=== PATIENT | female | born 1935 | race Caucasian/White ===

== ENCOUNTER 2016-10-01 07:25 | Day surgery (SDC) | payer MEDICARE ==
[~2016-10-01] VITALS: Ht 149.9 cm; Wt 72.2 kg
[~2016-10-01 07:25] MED LIST: ALBU2.5I INH; BUME0.5T PO; COLL30OI3 TOP; DOCU1CAP39 PO; GLIP5 PO; IPRA0.02 NEB; LACT20SO4 PO; LOPI600T PO; POTA20IN3 PO; PRED10 PO; PREG25 PO; PROT40TA PO; Z.0.OXYGENDME NC
[2016-10-01 07:59] VITALS: BP 150/74; PULSE 87; RESP 18; TEMP 97.9; O2SAT 97
[2016-10-01] MEDS ORDERED: SENN1TAB PO (08:07)
[2016-10-01] MEDS ORDERED: OXYB5TAB10 PO (08:07)
[2016-10-01] MEDS ORDERED: GEMF600T PO (08:07)
[2016-10-01] MEDS ORDERED: PANT40TA3 PO (08:07)
[2016-10-01] MEDS ORDERED: GABA300C5 PO (08:07)
[2016-10-01] MEDS ORDERED: NOVOLOGP2 SQ (08:07)
[2016-10-01] MEDS ORDERED: ASPI81CH37 CHEW (08:07)
[2016-10-01] MEDS ORDERED: XARE20TA PO (08:07)
[2016-10-01] MEDS ORDERED: FURO40TA PO (08:07)
[2016-10-01] MEDS ORDERED: K-TA10TA PO (08:07)
[2016-10-01] MEDS ORDERED: METO50TA PO (08:07)
[2016-10-01] MEDS ORDERED: SODIUM CHLORIDE 0.9% 1000 ML IV SCH (08:15)
[2016-10-01] MEDS ORDERED: ceFAZolin 2 GM PREMIX 50 ML - implanted port removal IV SCH (08:15)
[2016-10-01 08:28] LABS: AUTOMATED NEUTROPHIL # 2.4 TH/MM3 (1.8-7.7); BASOPHIL % 0.6 % (0.0-2.0); EOSINOPHIL # 0.2 TH/MM3 (0-0.4); HEMATOCRIT 32.6 % (35.0-46.0); HEMO FLAGS DIFF FINAL; LYMPHOCYTE # 2.4 TH/MM3 (1.0-4.8); MEAN CELL VOLUME 93.7 FL (80.0-100.0); MEAN CORPUSCULAR HEMOGLOBIN 31.1 PG (27.0-34.0); MEAN CORPUSCULAR HGB CONC 33.2 % (32.0-36.0); MONO % 8.7 % (0.0-8.0); NEUT % 43.7 % (16.0-70.0); PLATELET COUNT 146 TH/MM3 (150-450); RED BLOOD COUNT 3.48 MIL/MM3 (4.00-5.30); RED CELL DISTRIBUTION WIDTH 14.5 % (11.6-17.2); WHITE BLOOD COUNT 5.5 TH/MM3 (4.0-11.0)
[2016-10-01] MEDS ORDERED: VANCOMYCIN 1,000 MG/NS 250 ML IV STA ×2 (09:28)
[2016-10-01] MEDS ORDERED: LIDOCAINE 1%/EPINEPHrine 1:100,000 SOLN 20 ML VIAL ONE (09:52)
[2016-10-01 10:55] VITALS: BP 102/33; PULSE 57; RESP 18; TEMP 97.7; O2SAT 95
--- NOTE | 2016-10-01 11:04 | PD.RAD ---
Post Procedure Progress Note Pre Procedure Diagnosis: (1) Peritoneal carcinomatosis Post Procedure Diagnosis: (1) Peritoneal carcinomatosis Procedure Date: Oct 01, 2016 Supervising Radiologist: Ibrahima Mujica Proceduralist/Assist: RT Veronique(R), RT Chuck(R) Anesthesia: Local, Analgesia Plan of Activity Patient to Unit: ROPU Patient Condition: Good See PACS Report for procedural detail/treatment Central Venous Access Device Procedure 1 Left Internal Jugular Infusaport Removal single lumen Brazilian: 8 Findings: Tissue breakdown over port. Port removed Ibrahima Mujica MD Oct 01, 2016 11:04
[2016-10-01 11:10] VITALS: BP 116/39; PULSE 55; RESP 18; O2SAT 98
[2016-10-01 11:40] VITALS: BP 97/41; PULSE 44; RESP 18; O2SAT 94
[2016-10-01 12:10] VITALS: BP 102/47; PULSE 41; RESP 18; O2SAT 95
--- NOTE | 2016-10-01 12:46 | RADRPT ---
EXAM DATE/TIME: 10/01/2016 07:32 [facility] COMPARISON: [id number] REMOVAL, W/O FLUORO, LEFT, July 01, 2015, 0:00. INDICATIONS : Patient with history of breast cancer in need of Pijqa-w-Pktb removal due to infection. MEDICAL HISTORY : Omental and peritoneal masses, Ascites, Left breast cancer, CAD, Diabetes, GERD, HLD, HTN, Peripheral neuropathy, Chemotherapy SURGICAL HISTORY : Coronary artery bypass, Coronary stent, Pacemaker, Complete hysterectomy, Left mastectomy, Paracentes is ENCOUNTER: Subsequent ACUITY: 2 weeks PAIN SCORE: 0/10 SEDATION TIME: 30 minutes 1.) 50 mcg fentanyl (Sublimaze) IV 2.) Prophylactic antibiotics were administered with appropriate pre-procedure timing. Vancomycin within 2 hrs of procedure, Ancef (or alternative) within 1 hr of procedure. PROCEDURE : 1. Removal of Pqlthj-m-fkdc. 2. Conscious sedation with continuous EKG and oximetry monitoring. The risk, benefits and potential complications of Hlveve-o-Gclv removal were discussed. Written conse nt was obtained. The patient was placed supine. The chest wall was prepped in sterile fashion. Full sterile techniqu e was used, including cap, mask, sterile gloves and gown, and a large sterile sheet. Hand hygiene an d 2% chlorhexidine and/or Betadine/alcohol prep was utilized per protocol for cutaneous antisepsis. The skin and subcutaneous tissues were infiltrated with local anesthetic solution. A small incision w as made, the subcutaneous pocket was opened. The port was dissected from the subcutaneous tissues and easily removed in one piece. The pocket incision was closed with subcuticular Vicryl suture. Steri -Strips were applied. Conscious sedation was performed with the prescribed dosages and duration as above in the presence of an independent trained radiology nurse to assist in the monitoring of the patient. EKG and oximetry remained stable throughout the procedure. The patient tolerated the procedure well and there were no complications. The patient was sent to post anesthesia recovery in stable condition. CONCLUSION: Uncomplicated port removal as above. Ibrahima Mujica MD on October 01, 2016 at 12:44 Board Certified Radiologist. This report was verified electronically.
== END 2016-10-01 13:00 | disposition home or self-care (01) ==
LOC: HROP 07:25 → HRIP 07:26 → HROP 13:00
PROVIDERS: ATTEND Internal Medicine Hematology & Oncology
DX: Z45.2 Encounter for adjustment and management of vascular access device (principal); C78.6 Secondary malignant neoplasm of retroperitoneum and peritoneum; R18.8 Other ascites; I25.10 Atherosclerotic heart disease of native coronary artery without angina pectoris; I10 Essential (primary) hypertension; Z95.5 Presence of coronary angioplasty implant and graft; E11.42 Type 2 diabetes mellitus with diabetic polyneuropathy
CPT/HCPCS: 36590; 85025; J3010; J3370; J7030; J7050

== ENCOUNTER 2016-11-19 06:08 | Day surgery (SDC) | payer MEDICARE ==
[~2016-11-19] VITALS: Ht 134.6 cm; Wt 70.5 kg
[~2016-11-19 06:08] MED LIST changes: -ALBU2.5I INH; +ASPI81CH37 CHEW; -BUME0.5T PO; -COLL30OI3 TOP; -DOCU1CAP39 PO; +FURO40TA PO; +GABA300C5 PO; +GEMF600T PO; -GLIP5 PO; -IPRA0.02 NEB; +K-TA10TA PO; -LACT20SO4 PO; -LOPI600T PO; +METO50TA PO; +NOVOLOGP2 SQ; +OXYB5TAB10 PO; +PANT40TA3 PO; -POTA20IN3 PO; -PRED10 PO; -PREG25 PO; -PROT40TA PO; +SENN1TAB PO; +XARE20TA PO; -Z.0.OXYGENDME NC
[2016-11-19 06:44] VITALS: BP 185/85; PULSE 81; RESP 20; TEMP 97.7; O2SAT 97
[2016-11-19] MEDS ORDERED: APIX2.5T PO (06:51)
[2016-11-19] MEDS ORDERED: SODIUM CHLORIDE 0.9% 1000 ML IV SCH (07:15)
[2016-11-19] MEDS ORDERED: VANCOMYCIN 1000 MG/NS 250 ML - implanted port/tunneled catheter IV SCH ×2 (07:15)
[2016-11-19] MEDS ORDERED: POVIDONE IODINE 5% (ANTISEPSIS KIT) 4 APPLICATIONS EACH NARE SCH (07:15)
[2016-11-19] MEDS ORDERED: ceFAZolin 2 GM PREMIX 50 ML - implanted port/tunneled catheter insertion IV SCH (07:15)
[2016-11-19] MEDS ORDERED: CHLORHEXIDINE GLUCONATE 2 % 1 PACK (2 CLOTHS) TOPICAL SCH (07:15)
[2016-11-19] MEDS ORDERED: MIDAZOLAM HCL 2 MG/2 ML VIAL ONE (07:57)
--- NOTE | 2016-11-19 09:09 | PD.RAD ---
Post Procedure Progress Note Pre Procedure Diagnosis: (1) Peritoneal carcinoma Post Procedure Diagnosis: (1) Peritoneal carcinoma Procedure Date: Nov 19, 2016 Supervising Radiologist: Anand Swartz Estimated blood loss: 3cc Anesthesia: Local, Conscious Sedation Plan of Activity Patient Condition: Fair Additional Comments: Port placed via the right IJ port in good position OK for use Full dictated report to follow See PACS Report for procedural detail/treatment Anand Swartz MD Nov 19, 2016 09:09
[2016-11-19] MEDS ORDERED: SODIUM CHLORIDE 0.9% FLUSH 10 ML FLUSH IVF PRN (09:15)
[2016-11-19 09:20] VITALS: BP 132/65; PULSE 63; RESP 16; TEMP 97.7; O2SAT 95
[2016-11-19 09:21] VITALS: BP 132/65; PULSE 63; RESP 16; TEMP 97.7; O2SAT 95
--- NOTE | 2016-11-19 09:33 | RADRPT ---
EXAM DATE/TIME: 11/19/2016 08:34 [facility] COMPARISON: [id number] REMOVAL, W/O FLUORO, LEFT, October 01, 2016, 7:32. INDICATIONS : Patient presents with a history of breast cancer and omental mass in need of port placement for chemo therapy treatment. MEDICAL HISTORY : CAD DM GERD HTN Peripheral neuropathy SURGICAL HISTORY : CABG PPM Ly mastectomy Coronary stent Pacemaker Hysterectomy ENCOUNTER: Subsequent ACUITY: >1 year PAIN SCORE: 0/10 LOCATION: N/A FLUORO TIME: 0.9 minutes IMAGE SERIES: 0 SEDATION TIME: 45 minutes ACCESS: Right internal jugular vein SEDATION: 1.) 2 mg midazolam (Versed) IV Prophylactic antibiotics were administered with appropriate pre-procedure timing. Vancomycin within 2 hours of procedure, Ancef (or alternative) within 1 hour of procedure. DEVICE: 1. [address] [place]ian single lumen Smart port CT w/vortex PROCEDURE : 1. Continuous pulse oximetry and EKG monitoring. 2. Intravenous conscious sedation. 3. Ultrasound guidance for venous access. 4. Fluoroscopic guided implantable central venous port placement. The patient was assessed prior to the procedure. The patient had a port removed from the left chest t he 2 infection. The site demonstrated continued induration with a small wound. The right chest was evaluated. The patient had a pacer in place on the right fortunately, it was plac ed quite laterally. The decision was made to place the port as medial as possible in the right chest. The patient was placed supine. The neck was prepped in sterile fashion. Full sterile technique was u sed, including cap, mask, sterile gloves and gown, and a large sterile sheet. Hand hygiene and 2% ch lorhexidine Betadine was utilized per protocol for cutaneous antisepsis with appropriate dry time for site. Sterile gel and sterile probe cover were utilized for ultrasound guidance. The skin and sub cutaneous tissues were infiltrated with local anesthetic solution. Under direct ultrasound guidance, central venous access was accomplished via the right internal jugul ar vein. The ultrasound images depicting access guidance were stored and saved to PACS for permanent record. A subcutaneous pocket was created using blunt dissection. The port was introduced to the p ocket. The catheter tubing was fed through a subcutaneous tunnel to the venotomy site. The catheter tubing was cut to a suitable length and then was introduced through a valved Peel-Away sheath and po sitioned with catheter tubing tip at the cavo-atrial junction level. The pocket incision was closed with subcuticular Vicryl suture. Steri-Strips were applied. The port was flushed and locked with he flaquita solution per protocol. Sterile dressing was applied to the site. The patient tolerated the pr ocedure well. Conscious sedation was performed with the prescribed dosages and duration as above in the presence of an independent trained radiology nurse to assist in the monitoring of the patient. EKG and oximetry remained stable throughout the procedure. The patient tolerated the procedure well and there were no complications. The patient was sent to post anesthesia recovery in stable condition. CONCLUSION: Uncomplicated ultrasound and fluoroscopic guided implanted central venous port catheter placement as described in detail above. An 8 Bur[place]ian Power port was placed. Anand Swartz MD on November 19, 2016 at 9:30 Board Certified Radiologist. This report was verified electronically.
[2016-11-19 09:51] VITALS: BP 127/67; PULSE 59; RESP 17; O2SAT 96
[2016-11-19 10:21] VITALS: BP 150/71; PULSE 67; RESP 18; O2SAT 97
== END 2016-11-19 11:20 | disposition home or self-care (01) ==
LOC: HROP 06:08 → HRIP 06:14 → HROP 11:20
PROVIDERS: ATTEND Internal Medicine Hematology & Oncology
DX: Z45.2 Encounter for adjustment and management of vascular access device (principal); C48.2 Malignant neoplasm of peritoneum, unspecified; Z85.3 Personal history of malignant neoplasm of breast; I25.10 Atherosclerotic heart disease of native coronary artery without angina pectoris; E11.9 Type 2 diabetes mellitus without complications; K21.9 Gastro-esophageal reflux disease without esophagitis; I10 Essential (primary) hypertension; G62.9 Polyneuropathy, unspecified; Z95.1 Presence of aortocoronary bypass graft; Z79.4 Long term (current) use of insulin
CPT/HCPCS: 36561; 76942; 77001; 99152; 99153; C1788; J0690; J1642; J2250; J3370; J7030; J7050

== ENCOUNTER 2016-11-22 10:02 | Day surgery (SDC) | payer MEDICARE ==
[~2016-11-22 10:02] MED LIST changes: +APIX2.5T PO; -OXYB5TAB10 PO; -XARE20TA PO
[2016-11-22 10:30] VITALS: BP 124/63; PULSE 71; RESP 18; TEMP 98.1; O2SAT 95
== END 2016-11-22 10:50 | disposition home or self-care (01) ==
LOC: HROP 10:02 → HRIP 10:03 → HROP 10:50
PROVIDERS: ATTEND Radiology Body Imaging
DX: Z45.2 Encounter for adjustment and management of vascular access device (principal); C56.9 Malignant neoplasm of unspecified ovary
CPT/HCPCS: 99211; G0463

== ENCOUNTER 2017-03-08 17:38 | Observation (INO) | payer MEDICARE ==
[~2017-03-08 17:38] MED LIST changes: -ASPI81CH37 CHEW; +ASPI81CH6 CHEW
[2017-03-08 17:41] VITALS: BP 125/59; PULSE 68; RESP 14; TEMP 97.7; O2SAT 100
--- NOTE | 2017-03-08 18:23 | PD ---
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 Said it started at 4pm and stopped at 7pm. Then it started again this afternoon and she decides to come here. Denies any fever, chest pain, sob, n/v, abdominal pain, focal weakness or numbness. Pt has seen ENT Dr. Francisco for similar complaints before. PFSH Past Medical History Hx Anticoagulant Therapy: No Cancer: Yes (BREAST AND OMENTAL ) Cardiovascular Problems: Yes (Stents, Pacemaker) Chemotherapy: Yes Cerebrovascular Accident: No Diabetes: Yes Diminished Hearing: No Endocrine: Yes (DM) Gastrointestinal Disorders: Yes (GERD) Genitourinary: No Hepatitis: No Hiatal Hernia: No Hypertension: Yes Immune Disorder: No Musculoskeletal: No Neurologic: No Psychiatric: No Reproductive: No Respiratory: Yes Thyroid Disease: No Past Surgical History Abdominal Surgery: No AICD: No Cardiac Surgery: Yes (STENTS, CABG, PACER) Ear Surgery: No Endocrine Surgery: No Eye Surgery: No Genitourinary Surgery: No Gynecologic Surgery: No Hysterectomy: Yes (L Mastectomy) Joint Replacement: No Mastectomy: Yes Oral Surgery: No Pacemaker: Yes Thoracic Surgery: Yes (LEFT BREAST) Other Surgery: Yes (LEFT BREAST REMOVED, STENTS, CABG,PACER) Social History Alcohol Use: No Tobacco Use: No Substance Use: No Allergies-Medications (Allergen,Severity, Reaction): Coded Allergies: amoxicillin (Unverified Allergy, Severe, Nausea/Vomiting, 03/08/17) codeine (Unverified Allergy, Severe, GI UPSET, 03/08/17) benazepril (Unverified Allergy, Intermediate, COUGHING, 03/08/17) captopril (Unverified Allergy, Intermediate, COUGHING, 03/08/17) enalaprilat (Unverified Allergy, Intermediate, COUGHING, 03/08/17) fosinopril (Unverified Allergy, Intermediate, COUGHING, 03/08/17) lisinopril (Unverified Allergy, Intermediate, COUGHING, 03/08/17) quinapril (Unverified Allergy, Intermediate, COUGHING, 03/08/17) Reported Meds & Prescriptions Reported Meds & Active Scripts Active Reported Eliquis (Apixaban) 2.5 Mg Tab 2.5 Mg PO BID Senna-Plus (Sennosides-Docusate Sodium) 8.6-50 Mg Tab 3 Tab PO HS Gabapentin 300 Mg Cap 300 Mg PO TID Furosemide 40 Mg Tab 40 Mg PO DAILY Pantoprazole (Pantoprazole Sodium) 40 Mg Tab 40 Mg PO DAILY Metoprolol Tartrate 50 Mg Tab 50 Mg PO BID K-Tab (Potassium Chloride) 10 Meq Tab 10 Meq PO BID Gemfibrozil 600 Mg Tab 600 Mg PO BIDAC Take 30 minutes prior to breakfast and dinner. Review of Systems Except as stated in HPI: all other systems reviewed are Neg Physical Exam Narrative GENERAL: 82yo F not in distress. SKIN: Focused skin assessment warm/dry. HEAD: Atraumatic. Normocephalic. EYES: Pupils equal and round. No scleral icterus. No injection or drainage. ENT: Right nostril: Lateral anterior oozing. Left nostril, +medial oozing. NECK: Trachea midline. No JVD. CARDIOVASCULAR: Regular rate and rhythm. No murmur appreciated. RESPIRATORY: No accessory muscle use. Clear to auscultation. Breath sounds equal bilaterally. GASTROINTESTINAL: Abdomen soft, non-tender, nondistended. MUSCULOSKELETAL: No obvious deformities. No clubbing. No cyanosis. No edema. NEUROLOGICAL: Awake and alert. No obvious cranial nerve deficits. Motor grossly within normal limits. Normal speech. PSYCHIATRIC: Appropriate mood and affect; insight and judgment normal. Data Data Last Documented VS Vital Signs Date Time Temp Pulse Resp B/P (MAP) Pulse Ox O2 Delivery O2 Flow Rate FiO2 03/08/17 21:55 65 15 115/54 (74) 99 03/08/17 18:58 Room Air 03/08/17 17:41 97.7 Orders Orders Oxymetazoline 0.05% Jefry Squires (Afrin 0.0 (03/08/17 18:30) Complete Blood Count With Diff (03/08/17 18:19) Prothrombin Time / Inr (Pt) (03/08/17 18:19) Act Partial Throm Time (Ptt) (03/08/17 18:19) Ipratropium Neb (Atrovent Neb) (03/08/17 22:00) Admit Order (Ed Use Only) (03/08/17 22:01) Labs Laboratory Tests Test 03/08/17 18:40 White Blood Count 2.5 TH/MM3 Red Blood Count 2.47 MIL/MM3 Hemoglobin 7.7 GM/DL Hematocrit 23.1 % Mean Corpuscular Volume 93.5 FL Mean Corpuscular Hemoglobin 31.1 PG Mean Corpuscular Hemoglobin Concent 33.2 % Red Cell Distribution Width 17.1 % Platelet Count 60 TH/MM3 Mean Platelet Volume 8.9 FL Neutrophils (%) (Auto) 26.5 % Lymphocytes (%) (Auto) 69.2 % Monocytes (%) (Auto) 2.2 % Eosinophils (%) (Auto) 1.6 % Basophils (%) (Auto) 0.5 % Neutrophils # (Auto) 0.7 TH/MM3 Lymphocytes # (Auto) 1.7 TH/MM3 Monocytes # (Auto) 0.1 TH/MM3 Eosinophils # (Auto) 0.0 TH/MM3 Basophils # (Auto) 0.0 TH/MM3 CBC Comment AUTO DIFF Differential Total Cells Counted 100 Neutrophils % (Manual) 36 % Band Neutrophils % 11 % Lymphocytes % 53 % Neutrophils # (Manual) 1.2 TH/MM3 Differential Comment FINAL DIFF MANUAL Atypical Lymphocytes % Platelet Estimate LOW Platelet Morphology Comment NORMAL Prothrombin Time 11.2 SEC Prothromb Time International Ratio 1.1 RATIO Activated Partial Thromboplast Time 32.4 SEC MDM Medical Decision Making Medical Screen Exam Complete: Yes Emergency Medical Condition: Yes Differential Diagnosis Epistaxis Narrative Course 82yo F with epistaxis. Pt is on eliquis. Will try afrin spray first. If that does not work, will place bilateral nasal packing. Afrin spray has not come from pharmacy yet. Dr. Banda will take over. Diagnosis Primary Impression: Epistaxis JoelShirley DO Mar 08, 2017 18:23
[2017-03-08] MEDS ORDERED: OXYMETAZOLINE HCL 0.05% 15 ML NASAL SPRAY NASAL ONE (18:30)
[2017-03-08 19:02] VITALS: BP 111/52; PULSE 63; RESP 15; O2SAT 100
[2017-03-08 19:31] LABS: AUTOMATED NEUTROPHIL # 0.7 TH/MM3 (1.8-7.7); BASOPHIL % 0.5 % (0.0-2.0); EOSINOPHIL % 1.6 % (0.0-4.0); HEMATOCRIT 23.1 % (35.0-46.0); HEMOGLOBIN 7.7 GM/DL (11.6-15.3); LYMPH % 69.2 % (9.0-44.0); LYMPHOCYTE # 1.7 TH/MM3 (1.0-4.8); MEAN CELL VOLUME 93.5 FL (80.0-100.0); MEAN CORPUSCULAR HEMOGLOBIN 31.1 PG (27.0-34.0); MEAN CORPUSCULAR HGB CONC 33.2 % (32.0-36.0); MEAN PLATELET VOLUME 8.9 FL (7.0-11.0); MONO % 2.2 % (0.0-8.0); MONOCYTE # 0.1 TH/MM3 (0-0.9); NEUT % 26.5 % (16.0-70.0); PLATELET COUNT 60 TH/MM3 (150-450); RED BLOOD COUNT 2.47 MIL/MM3 (4.00-5.30); RED CELL DISTRIBUTION WIDTH 17.1 % (11.6-17.2); WHITE BLOOD COUNT 2.5 TH/MM3 (4.0-11.0)
[2017-03-08 19:43] LABS: INTERNATIONAL NORMALIZED RATIO 1.1 RATIO; PROTHROMBIN TIME - PATIENT 11.2 SEC (9.8-11.6)
[2017-03-08 20:24] LABS: BANDS 11 % (0-6); NEUTROPHIL # MANUAL DIFF 1.2 TH/MM3 (1.8-7.7); POLYS (SEG NEUTROPHILS) 36 % (16-70)
[2017-03-08 20:38] LABS: LYMPHOCYTES 53 % (9-44)
--- NOTE | 2017-03-08 21:26 | PD ---
Physical Exam Date Seen by Provider: Mar 08, 2017 Time Seen by Provider: 19:30 Narrative I packed the patient's nose rapid Rhino bacitracin on the tip and Afrinol over the actual rapid Rhino and then inserted without complications and inflated with 3 cc air on the right naris was unable to pass a rapid Rhino so used a Merocel cut in half and that is able to dislodge a clot patient coughed that up and packing left in place. Patient's H&H is 7. 7/23. She is chronically anemic from her cancer she is receiving chemotherapy she has Augmentin cancer patient did lose a decent amount of blood from the nasal bleeding she reports vomiting up clots of blood and she will need to be admitted for observation and possible transfusion to be seen by ENT in the morning Data Data Last Documented VS Vital Signs Date Time Temp Pulse Resp B/P (MAP) Pulse Ox O2 Delivery O2 Flow Rate FiO2 03/08/17 21:55 65 15 115/54 (74) 99 03/08/17 18:58 Room Air 03/08/17 17:41 97.7 Orders Orders Oxymetazoline 0.05% Jefry Pitcairn (Afrin 0.0 (03/08/17 18:30) Complete Blood Count With Diff (03/08/17 18:19) Prothrombin Time / Inr (Pt) (03/08/17 18:19) Act Partial Throm Time (Ptt) (03/08/17 18:19) Ipratropium Neb (Atrovent Neb) (03/08/17 22:00) Admit Order (Ed Use Only) (03/08/17 22:01) Labs Laboratory Tests Test 03/08/17 18:40 White Blood Count 2.5 TH/MM3 Red Blood Count 2.47 MIL/MM3 Hemoglobin 7.7 GM/DL Hematocrit 23.1 % Mean Corpuscular Volume 93.5 FL Mean Corpuscular Hemoglobin 31.1 PG Mean Corpuscular Hemoglobin Concent 33.2 % Red Cell Distribution Width 17.1 % Platelet Count 60 TH/MM3 Mean Platelet Volume 8.9 FL Neutrophils (%) (Auto) 26.5 % Lymphocytes (%) (Auto) 69.2 % Monocytes (%) (Auto) 2.2 % Eosinophils (%) (Auto) 1.6 % Basophils (%) (Auto) 0.5 % Neutrophils # (Auto) 0.7 TH/MM3 Lymphocytes # (Auto) 1.7 TH/MM3 Monocytes # (Auto) 0.1 TH/MM3 Eosinophils # (Auto) 0.0 TH/MM3 Basophils # (Auto) 0.0 TH/MM3 CBC Comment AUTO DIFF Differential Total Cells Counted 100 Neutrophils % (Manual) 36 % Band Neutrophils % 11 % Lymphocytes % 53 % Neutrophils # (Manual) 1.2 TH/MM3 Differential Comment FINAL DIFF MANUAL Atypical Lymphocytes % Platelet Estimate LOW Platelet Morphology Comment NORMAL Prothrombin Time 11.2 SEC Prothromb Time International Ratio 1.1 RATIO Activated Partial Thromboplast Time 32.4 SEC [facility] Medical Record Reviewed: Yes Supervised Visit with SERA: No Narrative Course I spoke to [facility] attending he comes beside and admits the patient to [facility] service for follow up and ENT consult in AM , no need for transfusion at this time, HEME/ ONC consult for anemia of epistaxis. Bleeding controlled at this time in ER Procedures Procedure Narrative Nasal packing for epistaxis with rapid Rhino 7.5 cm with bacitracin and Afrin applied with good control of the bleeding there is slight trickle down the posterior pharynx but much reduced. Then re-exam bleeding has stopped . Pt is on Eloquest but I do not feel is indicated to reverse her at this time... she will be admitted possibly transfused and seen by HEME/ONC AND ENT Diagnosis Primary Impression: Epistaxis Additional Impression: Anemia Scripts Mupirocin Nasal Oint (Bactroban Nasal Oint) 2% Oint 1 APPLIC OTHER TID for epistaxis, #1 TUBE Single-use tubes. apply small amount to both nares TID x 5d Dispense 30g Prov: Evangelist Grullon DO 03/11/17 Jadiel Banda MD Mar 08, 2017 21:26
[2017-03-08 21:55] VITALS: BP 115/54; PULSE 65; RESP 15; O2SAT 99
[2017-03-08] MEDS ORDERED: RESP: IPRATROPIUM 0.5 MG/2.5 ML NEB NEB ONE (22:00)
[2017-03-08] MEDS ORDERED: ONDANSETRON HCL 4 MG/2 ML VIAL IVP PRN (22:15)
[2017-03-08] MEDS ORDERED: TEMAZEPAM 15 MG CAP PO PRN (22:15)
[2017-03-08] MEDS ORDERED: NALOXONE HCL 0.4 MG/ML AMP IV PUSH PRN (22:15)
[2017-03-08] MEDS ORDERED: BISACODYL 10 MG SUPP RECTAL PRN (22:15)
[2017-03-08] MEDS ORDERED: LACTULOSE SYRUP 20 GM/30 ML CUP PO PRN (22:15)
[2017-03-08] MEDS ORDERED: MAGNESIUM HYDROXIDE SUSP 30 ML CUP PO PRN (22:15)
[2017-03-08] MEDS ORDERED: SODIUM CHLORIDE 0.9% FLUSH 10 ML FLUSH IV FLUSH PRN (22:15)
[2017-03-08] MEDS ORDERED: ACETAMINOPHEN 325 MG TAB PO PRN (22:15)
--- NOTE | 2017-03-08 22:26 | HHI.HP ---
HPI Service [facility] Hospitalists Primary Care Physician Thony Galan M.D. 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 Patient with continued epistaxis started yesterday between 4-7 pm and then recurred in er nose was packed with rapid Rhino bacitracin on the tip and Afrinol over the actual rapid Rhino and then inserted without complications and inflated with 3 cc air on the right naris was unable to pass a rapid Rhino so used a Merocel cut in half and that is able to dislodge a clot patient coughed that up and packing left in place. Patient's H&H is 7. 7/23. She is chronically anemic from her cancer she is receiving chemotherapy did lose a decent amount of blood from the nasal bleeding she reports vomiting up clots of blood and she will need to be admitted for observation and possible transfusion to be seen by ENT in the morning. Will recheck labs in am and if decrease in hemoglobin will transfuse . At this point will continue Eliquis and hold asa 325. Review of Systems Ears, nose, mouth, throat: COMPLAINS OF: Epistaxis Past Family Social History Past Medical History a fib,omental and peritoneal cancer with hx ascites on carboplatinol and abraxane ,cad s/p stent dm,GERD hyperlipids htn, Past Surgical History cad stent defibrillator,hysterectomy mastectomy 1978 Reported Medications Eliquis (Apixaban) 2.5 Mg Tab 2.5 Mg PO BID Senna-Plus (Sennosides-Docusate Sodium) 8.6-50 Mg Tab 3 Tab PO HS Aspirin Low Dose (Aspirin) 81 Mg Chew 81 Mg CHEW DAILY Gabapentin 300 Mg Cap 300 Mg PO TID Furosemide 40 Mg Tab 40 Mg PO DAILY Pantoprazole (Pantoprazole Sodium) 40 Mg Tab 40 Mg PO DAILY Metoprolol Tartrate 50 Mg Tab 50 Mg PO BID K-Tab (Potassium Chloride) 10 Meq Tab 10 Meq PO BID Gemfibrozil 600 Mg Tab 600 Mg PO BIDAC Take 30 minutes Allergies: Coded Allergies: amoxicillin (Unverified Allergy, Severe, Nausea/Vomiting, 03/08/17) codeine (Unverified Allergy, Severe, GI UPSET, 03/08/17) benazepril (Unverified Allergy, Intermediate, COUGHING, 03/08/17) captopril (Unverified Allergy, Intermediate, COUGHING, 03/08/17) enalaprilat (Unverified Allergy, Intermediate, COUGHING, 03/08/17) fosinopril (Unverified Allergy, Intermediate, COUGHING, 03/08/17) lisinopril (Unverified Allergy, Intermediate, COUGHING, 03/08/17) quinapril (Unverified Allergy, Intermediate, COUGHING, 03/08/17) Social History NS,ND Physical Exam Vital Signs Vital Signs Date Time Temp Pulse Resp B/P (MAP) Pulse Ox O2 Delivery O2 Flow Rate FiO2 03/08/17 21:55 65 15 115/54 (74) 99 03/08/17 19:02 63 15 111/52 (71) 100 03/08/17 18:58 65 15 100 Room Air 03/08/17 17:41 97.7 68 14 125/59 (81) 100 Physical Exam GENERAL: This is a well-nourished, well-developed patient, in no apparent distress. SKIN: No rashes, ecchymoses or lesions. Cool and dry. HEAD: Atraumatic. Normocephalic. No temporal or scalp tenderness. EYES: Pupils equal round and reactive. Extraocular motions intact. No scleral icterus. No injection or drainage. ENT: Nose without bleeding, purulent drainage or septal hematoma. Throat without erythema, tonsillar hypertrophy or exudate. Uvula midline. Airway patent. NECK: Trachea midline nose packed not actively bleeding now CARDIOVASCULAR: Regular rate and rhythm without murmurs, gallops, or rubs. RESPIRATORY: Clear to auscultation. Breath sounds equal bilaterally. No wheezes , rales, or rhonchi. GASTROINTESTINAL: Abdomen soft, non-tender, nondistended. No hepato-splenomegaly , or palpable masses. No guarding. MUSCULOSKELETAL: Extremities without clubbing, cyanosis, or edema. No joint tenderness, effusion, or edema noted. No calf tenderness. Negative Homans sign bilaterally. NEUROLOGICAL: Awake and alert. Cranial nerves II through XII intact. Motor and sensory grossly within normal limits. Five out of 5 muscle strength in all muscle groups. Normal speech. Laboratory Laboratory Tests Test 03/08/17 18:40 White Blood Count 2.5 Red Blood Count 2.47 Hemoglobin 7.7 Hematocrit 23.1 Mean Corpuscular Volume 93.5 Mean Corpuscular Hemoglobin 31.1 Mean Corpuscular Hemoglobin Concent 33.2 Red Cell Distribution Width 17.1 Platelet Count 60 Mean Platelet Volume 8.9 Neutrophils (%) (Auto) 26.5 Lymphocytes (%) (Auto) 69.2 Monocytes (%) (Auto) 2.2 Eosinophils (%) (Auto) 1.6 Basophils (%) (Auto) 0.5 Neutrophils # (Auto) 0.7 Lymphocytes # (Auto) 1.7 Monocytes # (Auto) 0.1 Eosinophils # (Auto) 0.0 Basophils # (Auto) 0.0 CBC Comment AUTO DIFF Differential Total Cells Counted 100 Neutrophils % (Manual) 36 Band Neutrophils % 11 Lymphocytes % 53 Neutrophils # (Manual) 1.2 Differential Comment FINAL DIFF MANUAL Atypical Lymphocytes Platelet Estimate LOW Platelet Morphology Comment NORMAL Prothrombin Time 11.2 Prothromb Time International Ratio 1.1 Activated Partial Thromboplast Time 32.4 Result Diagram: 03/08/17 1840 Course nose was packed Caprini VTE Risk Assessment Caprini VTE Risk Assessment: Mod/High Risk (score >= 2) Caprini Risk Assessment Model Point Value = 1 Point Value = 2 Point Value = 3 Point Value = 5 Age 41-60 Minor surgery BMI > 25 kg/m2 Swollen legs Varicose veins or History of unexplained or recurrent spontaneous Oral contraceptives or hormone replacement Sepsis (< 1 month) Serious lung disease, including pneumonia (< 1 month) Abnormal pulmonary function Acute myocardial infarction Congestive heart failure (< 1 month) History of inflammatory bowel disease Medical patient at bed rest Age 61-74 Arthroscopic surgery Major open surgery (> 45 min) Laparoscopic surgery (> 45 min) Malignancy Confined to bed (> 72 hours) Immobilizing plaster cast Central venous access Age >= 75 History of VTE Family history of VTE Factor V Leiden Prothrombin [id number] Lupus anticoagulant Anticardiolipin antibodies Elevated serum homocysteine Heparin-induced thrombocytopenia Other congenital or acquired thrombophilia Stroke (< 1 month) Elective arthroplasty Hip, pelvis, or leg fracture Acute spinal cord injury (< 1 month) Prophylaxis Regimen Total Risk Factor Score Risk Level Prophylaxis Regimen 0-1 Low Early ambulation 2 Moderate Order ONE of the following: *Sequential Compression Device (SCD) *Heparin 5000 units SQ BID 3-4 Higher Order ONE of the following medications: *Heparin 5000 units SQ TID *Enoxaparin/Lovenox 40 mg SQ daily (WT < 150 kg, CrCl > 30 mL/min) *Enoxaparin/Lovenox 30 mg SQ daily (WT < 150 kg, CrCl > 10-29 mL/min) *Enoxaparin/Lovenox 30 mg SQ BID (WT < 150 kg, CrCl > 30 mL/min) AND/OR *Sequential Compression Device (SCD) 5 or more Highest Order ONE of the following medications: *Heparin 5000 units SQ TID (Preferred with Epidurals) *Enoxaparin/Lovenox 40 mg SQ daily (WT < 150 kg, CrCl > 30 mL/min) *Enoxaparin/Lovenox 30 mg SQ daily (WT < 150 kg, CrCl > 10-29 mL/min) *Enoxaparin/Lovenox 30 mg SQ BID (WT < 150 kg, CrCl > 30 mL/min) AND *Sequential Compression Device (SCD) Assessment and Plan Problem List: (1) Epistaxis ICD Codes: R04.0 - Epistaxis Status: Acute Plan: consult ENT follow labs (2) Anemia ICD Codes: D64.9 - Anemia, unspecified Status: Acute Plan: recheck hgb if necessary transfuse blood in review has been 7-9 over last several months (3) Atrial fibrillation, controlled ICD Codes: I48.91 - Unspecified atrial fibrillation Plan: pacer,and on eliquis and full asa will hold asa for now continue eliquis no significant hemmorrage that we need to use reversal agent will ask hematology to see as well (4) Peritoneal carcinomatosis ICD Codes: C78.6 - Secondary malignant neoplasm of retroperitoneum and peritoneum; C80.1 - Malignant (primary) neoplasm, unspecified Status: Chronic Plan: just had chemo this week hematology consult Assessment and Plan further plan as case develops Code Status full Discussed Condition With patient Rajeev Devlin MD Mar 08, 2017 22:26
[2017-03-08] MEDS: SODIUM CHLOR 0.45% 1000 ML INJ 1,000 ML IV SCH (22:44)
[2017-03-09] VITALS (8 sets, daily range): BP systolic 89–142; BP diastolic 42–85; PULSE 62–85; RESP 17–21; TEMP 96.1–98.5; O2SAT 95–99
[2017-03-09] MEDS: GEMFIBROZIL 600 MG TAB PO SCH ×2 (06:39→16:35)
[2017-03-09] MEDS ORDERED: APIXABAN 2.5 MG TABLET PO SCH (09:00)
--- NOTE | 2017-03-09 09:36 | HHI.PR ---
Subjective Remarks Pt has not had any further epistaxis overnight or this morning She has Rhino rocket in left nare Objective Vitals Vital Signs Date Time Temp Pulse Resp B/P (MAP) Pulse Ox O2 Delivery O2 Flow Rate FiO2 03/09/17 08:01 97.6 62 21 89/42 (58) 98 03/09/17 03:41 98.5 64 18 96/47 (63) 98 03/09/17 00:05 97.5 63 17 141/59 (86) 98 03/08/17 23:49 03/08/17 21:55 65 15 115/54 (74) 99 03/08/17 19:02 63 15 111/52 (71) 100 03/08/17 18:58 65 15 100 Room Air 03/08/17 17:41 97.7 68 14 125/59 (81) 100 Result Diagram: 03/08/170 Other Results Laboratory Tests Test 03/08/17 18:40 White Blood Count 2.5 TH/MM3 Red Blood Count 2.47 MIL/MM3 Hemoglobin 7.7 GM/DL Hematocrit 23.1 % Mean Corpuscular Volume 93.5 FL Mean Corpuscular Hemoglobin 31.1 PG Mean Corpuscular Hemoglobin Concent 33.2 % Red Cell Distribution Width 17.1 % Platelet Count 60 TH/MM3 Mean Platelet Volume 8.9 FL Neutrophils (%) (Auto) 26.5 % Lymphocytes (%) (Auto) 69.2 % Monocytes (%) (Auto) 2.2 % Eosinophils (%) (Auto) 1.6 % Basophils (%) (Auto) 0.5 % Neutrophils # (Auto) 0.7 TH/MM3 Lymphocytes # (Auto) 1.7 TH/MM3 Monocytes # (Auto) 0.1 TH/MM3 Eosinophils # (Auto) 0.0 TH/MM3 Basophils # (Auto) 0.0 TH/MM3 CBC Comment AUTO DIFF Differential Total Cells Counted 100 Neutrophils % (Manual) 36 % Band Neutrophils % 11 % Lymphocytes % 53 % Neutrophils # (Manual) 1.2 TH/MM3 Differential Comment FINAL DIFF MANUAL Atypical Lymphocytes % Platelet Estimate LOW Platelet Morphology Comment NORMAL Prothrombin Time 11.2 SEC Prothromb Time International Ratio 1.1 RATIO Activated Partial Thromboplast Time 32.4 SEC Objective Remarks General: NAD, AAOx3 Chest: CTA Cardiac: Regular Abd: +BS, soft ND/NT Ext: Lymphedema in left arm A/P Problem List: (1) Epistaxis ICD Codes: R04.0 - Epistaxis Status: Acute Plan: - Pt is an 82 y/o female with hx of left breast cancer s/p mastectomy and 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 Pt is on chemo with Carboplatinol and Abraxane and follows with Dr. Jones. - She last underwent chemo about 8 days ago per the pt - [place] [facility] [place] with complaints of epistaxis which began the day prior to admission and had been on/off but yesterday persisted - Her labs at admission noted Hgb 7.7/Hct 23.1 - In the ED she had the left nares packed with rapid Rhino with bacitracin on the tip and Afrinol and inflated with 3 cc air. Pt was unable to pass a rapid Rhino on the right nares. 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
[2017-03-09 11:26] LABS: AUTOMATED NEUTROPHIL # 0.4 TH/MM3 (1.8-7.7); BASOPHIL % 0.5 % (0.0-2.0); EOSINOPHIL % 1.9 % (0.0-4.0); HEMATOCRIT 21.3 % (35.0-46.0); HEMOGLOBIN 7.3 GM/DL (11.6-15.3); LYMPH % 74.1 % (9.0-44.0); LYMPHOCYTE # 1.4 TH/MM3 (1.0-4.8); MEAN CELL VOLUME 92.4 FL (80.0-100.0); MEAN CORPUSCULAR HEMOGLOBIN 31.9 PG (27.0-34.0); MEAN CORPUSCULAR HGB CONC 34.5 % (32.0-36.0); MEAN PLATELET VOLUME 8.9 FL (7.0-11.0); MONO % 2.9 % (0.0-8.0); MONOCYTE # 0.1 TH/MM3 (0-0.9); NEUT % 20.6 % (16.0-70.0); PLATELET COUNT 57 TH/MM3 (150-450); RED CELL DISTRIBUTION WIDTH 17.3 % (11.6-17.2); WHITE BLOOD COUNT 1.9 TH/MM3 (4.0-11.0)
[2017-03-09] MEDS: PANTOPRAZOLE SOD 40 MG DELAYED RELEASE TAB PO SCH (11:47)
[2017-03-09] MEDS: POTASSIUM CHLORIDE 10 MEQ CONTROLLED RELEASE TAB PO SCH (11:47)
[2017-03-09] MEDS: GABAPENTIN 300 MG CAP PO SCH ×3 (11:47→18:09)
[2017-03-09] MEDS: SODIUM CHLORIDE 0.9% FLUSH 10 ML FLUSH IV FLUSH SCH ×2 (11:47→21:00)
[2017-03-09] MEDS ORDERED: ACETAMINOPHEN 325 MG TAB PO ONE (12:00)
[2017-03-09] MEDS ORDERED: diphenhydrAMINE HCL 25 MG CAP PO ONE (12:00)
[2017-03-09 12:26] LABS: LYMPHOCYTES 78 % (9-44); MONOCYTES 1 % (0-8); NEUTROPHIL # MANUAL DIFF 0.4 TH/MM3 (1.8-7.7); POLYS (SEG NEUTROPHILS) 19 % (16-70)
[2017-03-09] MEDS: FUROSEMIDE 40 MG TAB PO SCH (13:46)
[2017-03-09] MEDS: METOPROLOL TARTRATE 50 MG TAB PO SCH (13:47)
[2017-03-09] MEDS ORDERED: diphenhydrAMINE HCL 25 MG CAP PO PRN (14:45)
[2017-03-09] MEDS ORDERED: ACETAMINOPHEN 325 MG TAB PO PRN (14:45)
[2017-03-09] MEDS ORDERED: SODIUM CHLOR 0.9% 250 ML INJ 250 ML IV ONE (14:45)
--- NOTE | 2017-03-09 18:18 | MB ---
cc: MARGUERITE MEDINA DATE OF CONSULTATION: 03/09/2017. REASON FOR CONSULTATION / CHIEF COMPLAINT: 1. Anemia. 2. Peritoneal carcinomatosis. 3. Recent chemotherapy with pancytopenia 4: epistaxis left naris. PATIENT PROFILE: The patient is an 82-year-old white female. She has been for 61 years. She has three children. She was born in [place], [place]. She has lived in [place] for seven years. She is retired. 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 She does not smoke and she does not drink. HISTORY OF PRESENT ILLNESS: The patient's history dates back to November of 2014 when she developed abdominal pain and constipation. She had a CT scan of the abdomen and pelvis on 12/13/2014 and was found to have ascites and omental tumor. 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 She was not felt to be candidate for surgery. She was treated initially with carboplatin and Taxol and subsequently multiple other agents including Gemzar and most recently carboplatin and Abraxane. Her last chemotherapy was eight days ago. She presented to the emergency room on March 08, 2017 because of bleeding from the left naris. The area has been packed. It appears that the bleeding is subsiding. She was found to have significant cytopenias and a falling hemoglobin. She has had weakness and lightheadedness. No chest pain. Mild exertional shortness of breath. Today's CBC and platelet count on 03/09/2017: Hemoglobin 7.3, white count 1900, platelets are 57,000. Total neutrophil count was 400. The previous day, the total neutrophil count was 1200 and platelets are 60,000 and hemoglobin is 7.7. She has had no fevers. She has significant comorbidities. She has had coronary artery bypass grafting surgery. She has a coronary stent. She has a pacemaker. She has atrial fibrillation. She takes Eliquis 2.5 milligrams a day and an aspirin 81 milligrams a day. PAST SURGICAL HISTORY: 1. Coronary artery bypass graft surgery approximately [address] Saavedra. 2. Coronary stent. 3. Pacemaker placement. 4. Forty years ago a hysterectomy. She believes the ovaries were not removed. 5. Left mastectomy for breast cancer in 1978. She required no postoperative treatment. PAST MEDICAL HISTORY: 1. 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 2. Coronary artery disease. 3. Atrial fibrillation. 4. Diabetes in the past. 5. Peripheral neuropathy from chemotherapy. 6. Elevated cholesterol. 7. Hypertension. MEDICATIONS ON ADMISSION: 1. Apixaban 2.5 milligrams p.o. twice a day. 2. Lasix 40 a day. 3. Gabapentin 300 three times a day. 4. Gemfibrozil. 5. Metoprolol 50 twice a day. 6. Protonix. 7. Potassium 10 milliequivalents a day. 8. Senna Plus. 9. Aspirin 81 mg daily ALLERGIES: 1. AMOXICILLIN. 2. BENAZEPRIL. 3. CAPTOPRIL. 4. CARDENE. 5. VASOTEC. 6. FOSINOPRIL. 7. LISINOPRIL. 8. QUINAPRIL. FAMILY HISTORY: Family history is noncontributory. REVIEW OF SYSTEMS: No problems with vision or hearing. No chest pain or palpitations. She has had exertional shortness of breath during the past few days and lightheadedness. No melena or hematochezia. She is having epistaxis. No dysuria, frequency, hematuria or vaginal bleeding. She has aches in the feet and hands from her neuropathy. ADDITIONAL LABORATORY STUDIES: CA-125 on 02/27/2017 is 31, previously 51 on 01/24 and on 01/07 it was 73. Creatinine 1.35. BUN is 37. PHYSICAL EXAMINATION: GENERAL: The physical exam reveals a frail female. She is not in any acute distress. She is pale. She has packing in the left naris. VITAL SIGNS: Blood pressure is 140/60, respiratory rate 18, pulse 70, afebrile, 02 saturation is 98%. HEAD, EYES, EARS, NOSE, THROAT: Head is normocephalic. The sclerae and conjunctivae are normal. Oropharynx is unremarkable. LYMPHATIC: There is no cervical, supraclavicular, axillary or inguinal adenopathy. CHEST: She has evidence of a left mastectomy. Right breast without masses. HEART: Regular rhythm. LUNGS: Clear. ABDOMEN: Abdomen soft. No hepatosplenomegaly or masses. EXTREMITIES: No edema. MUSCULOSKELETAL: Mild muscle wasting. NEUROLOGIC: No focal weakness. Cognition and affect are normal. SKIN: Unremarkable other than a nodule in the upper sternal area. She tells me that she had problems with a suture coming through this area. She also has a scar from her bypass surgery and she has a pacemaker. ASSESSMENT: The patient is an 82-year-old female. She has intra-abdominal carcinomatosis from an ovarian cancer or a carcinoma arising from the peritoneal cavity. She has done remarkably well and continues to respond with a falling CA-125 and resolution of previous ascites. Her current problem is epistaxis. She has symptomatic anemia. She also has neutropenia with a 400 neutrophil count. RECOMMENDATIONS: 1. She is symptomatic from the anemia. She is going to have trouble making blood because of the chemotherapy. I would recommend that she receive two units of packed cells, and I have written for a transfusion. 2. Neutrophil count of 400. I would not do anything about this at the present time. If she becomes febrile, she will need broad-spectrum antibiotics. 3. She has a paced rhythm. I believe she has underlying atrial fibrillation. I would recommend continuing the Eliquis 2.5 milligrams p.o. twice a day beginning tomorrow and temporarily holding the aspirin until the bleeding has fully resolved. On looking at her studies, it appears the Apixaban has been held. I would be comfortable resuming the Apixaban tomorrow given the risk from the atrial fibrillation and diffuse peritoneal cancer if there is no further bleeding. These are judgment calls rather than absolutes but in any case, as soon as the bleeding has subsided, I would not hesitate to resume the Apixaban. MD DENZEL Erwin/MAKENZIE /2:50 PM /5:50 PM HUI
[2017-03-10] MEDS: METOPROLOL TARTRATE 50 MG TAB PO SCH ×3 (00:11→22:37)
[2017-03-10] MEDS: DOCUSATE SODIUM 50 MG/SENNA 8.6 MG TAB PO SCH ×2 (00:12→22:40)
[2017-03-10] MEDS: POTASSIUM CHLORIDE 10 MEQ CONTROLLED RELEASE TAB PO SCH ×3 (00:12→22:37)
[2017-03-10] MEDS: SODIUM CHLOR 0.45% 1000 ML INJ 1,000 ML IV SCH ×2 (00:50→11:33)
[2017-03-10 06:15] VITALS: BP 100/58; PULSE 58; RESP 18; TEMP 97.8; O2SAT 94
[2017-03-10 08:17] LABS: AUTOMATED NEUTROPHIL # 0.6 TH/MM3 (1.8-7.7); BASOPHIL % 0.8 % (0.0-2.0); EOSINOPHIL # 0.1 TH/MM3 (0-0.4); EOSINOPHIL % 2.4 % (0.0-4.0); HEMATOCRIT 27.1 % (35.0-46.0); HEMOGLOBIN 9.4 GM/DL (11.6-15.3); LYMPH % 70.6 % (9.0-44.0); LYMPHOCYTE # 1.8 TH/MM3 (1.0-4.8); MEAN CORPUSCULAR HEMOGLOBIN 31.2 PG (27.0-34.0); MEAN CORPUSCULAR HGB CONC 34.7 % (32.0-36.0); MEAN PLATELET VOLUME 9.1 FL (7.0-11.0); MONO % 3.7 % (0.0-8.0); MONOCYTE # 0.1 TH/MM3 (0-0.9); NEUT % 22.5 % (16.0-70.0); PLATELET COUNT 49 TH/MM3 (150-450); RED BLOOD COUNT 3.01 MIL/MM3 (4.00-5.30); RED CELL DISTRIBUTION WIDTH 18.5 % (11.6-17.2); WHITE BLOOD COUNT 2.6 TH/MM3 (4.0-11.0)
--- NOTE | 2017-03-10 08:32 | HHI.PR ---
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 No other complaints Objective Vitals Vital Signs Date Time Temp Pulse Resp B/P (MAP) Pulse Ox O2 Delivery O2 Flow Rate FiO2 03/10/17 06:15 97.8 58 18 100/58 (72) 94 03/09/17 19:36 98.5 66 20 98/47 99 03/09/17 19:17 97.9 70 20 97/51 99 03/09/17 19:01 97.8 85 20 120/85 95 03/09/17 15:23 96.8 72 18 96/54 (68) 99 03/09/17 12:07 96.1 68 18 142/56 (84) 98 Result Diagram: 03/10/17 0740 Other Results Laboratory Tests Test 03/08/17 18:40 03/09/17 11:10 03/10/17 07:40 White Blood Count 2.5 TH/MM3 1.9 TH/MM3 2.6 TH/MM3 Red Blood Count 2.47 MIL/MM3 2.30 MIL/MM3 3.01 MIL/MM3 Hemoglobin 7.7 GM/DL 7.3 GM/DL 9.4 GM/DL Hematocrit 23.1 % 21.3 % 27.1 % Mean Corpuscular Volume 93.5 FL 92.4 FL 90.0 FL Mean Corpuscular Hemoglobin 31.1 PG 31.9 PG 31.2 PG Mean Corpuscular Hemoglobin Concent 33.2 % 34.5 % 34.7 % Red Cell Distribution Width 17.1 % 17.3 % 18.5 % Platelet Count 60 TH/MM3 57 TH/MM3 49 TH/MM3 Mean Platelet Volume 8.9 FL 8.9 FL 9.1 FL Neutrophils (%) (Auto) 26.5 % 20.6 % 22.5 % Lymphocytes (%) (Auto) 69.2 % 74.1 % 70.6 % Monocytes (%) (Auto) 2.2 % 2.9 % 3.7 % Eosinophils (%) (Auto) 1.6 % 1.9 % 2.4 % Basophils (%) (Auto) 0.5 % 0.5 % 0.8 % Neutrophils # (Auto) 0.7 TH/MM3 0.4 TH/MM3 0.6 TH/MM3 Lymphocytes # (Auto) 1.7 TH/MM3 1.4 TH/MM3 1.8 TH/MM3 Monocytes # (Auto) 0.1 TH/MM3 0.1 TH/MM3 0.1 TH/MM3 Eosinophils # (Auto) 0.0 TH/MM3 0.0 TH/MM3 0.1 TH/MM3 Basophils # (Auto) 0.0 TH/MM3 0.0 TH/MM3 0.0 TH/MM3 CBC Comment AUTO DIFF AUTO DIFF AUTO DIFF Differential Total Cells Counted 100 100 Neutrophils % (Manual) 36 % 19 % Band Neutrophils % 11 % Lymphocytes % 53 % 78 % Neutrophils # (Manual) 1.2 TH/MM3 0.4 TH/MM3 Differential Comment FINAL DIFF MANUAL FINAL DIFF MANUAL Atypical Lymphocytes % Platelet Estimate LOW LOW Platelet Morphology Comment NORMAL ENLARGED Prothrombin Time 11.2 SEC Prothromb Time International Ratio 1.1 RATIO Activated Partial Thromboplast Time 32.4 SEC Monocytes % 1 % Eosinophils % 2 % Objective Remarks General: NAD, AAOx3 Chest: CTA Cardiac: Regular Abd: +BS, soft ND/NT Ext: Lymphedema in left arm A/P Problem List: (1) Epistaxis ICD Codes: R04.0 - Epistaxis Status: Acute Plan: - Pt is an 82 y/o female with hx of left breast cancer s/p mastectomy and 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 Pt is on chemo with Carboplatinol and Abraxane and follows with Dr. Jones. - She last underwent chemo about 8 days ago per the pt - [place] [facility] [place] with complaints of epistaxis which began the day prior to admission and had been on/off but yesterday persisted - Her labs at admission noted Hgb 7.7/Hct 23.1 - In the ED she had the left nares packed with rapid Rhino with bacitracin on the tip and Afrinol and inflated with 3 cc air. Pt was unable to pass a rapid Rhino on the right nares. - ENT was consulted. Spoke with Dr. Ignacio Lua this morning and he is recommending antibiotic ointment be placed in the nares three times per day as the Rhino rocket was not in place long enough. He felt that it would be better to hold off on anticoagulation another day because of this. - Pt was given 2 units PRBCs on 03/09/17 - Repeat CBC today noted Hgb 9.4/Hct 27.1, Platelet count 49,000 - Pt is on IVF - Monitor clinical status closely (2) Anemia ICD Codes: D64.9 - Anemia, unspecified Status: Acute Plan: - Pt received 2 units PRBCs on 03/09/17 - Repeat H/H today is 9.4/27.1 - Pts H/H has been between 8-9 (3) Atrial fibrillation, controlled ICD Codes: I48.91 - Unspecified atrial fibrillation Plan: - Pt has pacer in place and is on Eliquis and full ASA - We will hold ASA and Eliquis - Appreciate Hematology consultation - ENT evaluated the pt today and per my conversation with him he recommends holding off on resuming anticoagulation today as the Rhino Rocket was not held in place for an appropriate amount of time. (4) Peritoneal carcinomatosis ICD Codes: C78.6 - Secondary malignant neoplasm of retroperitoneum and peritoneum; C80.1 - Malignant (primary) neoplasm, unspecified Status: Chronic Plan: - Oncology consulted Assessment and Plan Patient examined. Assessment and plan formulated with Bibiana Archer PA-C. I agree with the above. pancytopenia related to chemo. epistaxis related to thrombocytopenia and on asa/eliquis. ent advises holding eliquis until tomorrow. discussed pros/cons with pt/ and they would like to hold it. possible d/c tomorrow. f/u cbc. rhino rocket out. Bibiana Archer Mar 10, 2017 08:32 Shaun Mcqueen MD Mar 10, 2017 13:39
[2017-03-10 09:00] LABS: BASOPHILS 1 % (0-2); LYMPHOCYTES 66 % (9-44); MONOCYTES 4 % (0-8); NEUTROPHIL # MANUAL DIFF 0.8 TH/MM3 (1.8-7.7); POLYS (SEG NEUTROPHILS) 29 % (16-70)
--- NOTE | 2017-03-10 10:16 | MB ---
cc: IGNACIO LUA MD DATE OF CONSULTATION: 03/10/2017 CHIEF COMPLAINT Nosebleed. HISTORY OF PRESENT ILLNESS The patient is a pleasant 82-year-old female with a history of multiple medical problems to include carcinoma with left breast cancer status post mastectomy as well as ovarian cancer and omental and peritoneal masses. She is on chemotherapy and presented with nosebleeds recently, has been intermittent. She has had a Rhino Rocket placed in the left nose two days ago which fell out last night at 11 o'clock while she was sleeping, possibly pulled out by mistake by the patient. However, although the patient's Rhino Rocket was pulled out almost 10 hours ago, she has had no further bleeding at all. She has been given 3 units of packed red blood cells yesterday. Her H&H are currently 9.4 and 27.1 which is up from prior to transfusion overnight. EXAMINATION Examination with the nasopharyngoscope revealed some fresh blood in the left nasal cavity but no active bleeding at all. Neck is without adenopathy. ASSESSMENT Anemia for which the patient has received pack red blood cells which she has come up. Also noted is history of epistaxis. It is a good sign that she has not bled at all since the Rhino Rocket has been pulled out almost 10 hours. However, the Rhino Rocket was not in place ideally the optimal amount of time. With her pulling it out the first time it is possible that if it is put in again that she may pull it out again. Thus, I recommend heavy antibiotic ointment to the left nasal cavity at least three times a day, with hopes of the possibility of not having to replace the Rhino Rocket, as she may pull it out again as well. Hopefully, within another 24 hours of heavy ointment to the left nasal cavity there will be enough of a healing to stabilize matters so that the anticoagulation could start after another 24 hours. I further recommend keeping another Rhino Rocket at the bedside in case that would need to be replaced in the future. If it does have to be replaced in the future I recommended being inflated to greater than 3 mm which it was last time and filling it up all the way to minimize the chance of having it come out again. Thus, I recommend heavy antibiotic ointment to the left nasal cavity ____ nose at least three times a day and keeping a Rhino Rocket at the bedside incase it would have to be replaced and this time filling it up all the way if need be. Thank you for this consultation. Ignacio Lua MD CCP/TLL /8:50 AM /9:54 AM
[2017-03-10] MEDS: SODIUM CHLORIDE 0.9% FLUSH 10 ML FLUSH IV FLUSH SCH ×2 (11:32→22:36)
[2017-03-10] MEDS: PANTOPRAZOLE SOD 40 MG DELAYED RELEASE TAB PO SCH (11:32)
[2017-03-10] MEDS: GEMFIBROZIL 600 MG TAB PO SCH ×2 (11:32→17:49)
[2017-03-10 12:38] VITALS: BP 111/69; PULSE 68; RESP 18; TEMP 98.2; O2SAT 98
[2017-03-10] MEDS: MUPIROCIN 2% OINT 1 APPLIC/GM SYR OTHER SCH ×4 (13:47→17:49)
[2017-03-10] MEDS: GABAPENTIN 300 MG CAP PO SCH ×3 (13:48→17:49)
--- NOTE | 2017-03-10 14:34 | PD.ONC.PN ---
Subjective Subjective Remarks no complaints and no further bleeding. Objective Data Date Time Temp Pulse Resp B/P (MAP) Pulse Ox O2 Delivery O2 Flow Rate FiO2 03/10/17 12:38 98.2 68 18 111/69 (83) 98 03/10/17 06:15 97.8 58 18 100/58 (72) 94 03/09/17 19:36 98.5 66 20 98/47 99 03/09/17 19:17 97.9 70 20 97/51 99 03/09/17 19:01 97.8 85 20 120/85 95 03/09/17 15:23 96.8 72 18 96/54 (68) 99 03/10/17 03/10/17 03/10/17 07:00 15:00 23:00 Intake Total 800 ml Balance 800 ml Result Diagram: 03/10/17 0740 Laboratory Results Laboratory Tests Test 03/10/17 07:40 White Blood Count 2.6 TH/MM3 Red Blood Count 3.01 MIL/MM3 Hemoglobin 9.4 GM/DL Hematocrit 27.1 % Mean Corpuscular Volume 90.0 FL Mean Corpuscular Hemoglobin 31.2 PG Mean Corpuscular Hemoglobin Concent 34.7 % Red Cell Distribution Width 18.5 % Platelet Count 49 TH/MM3 Mean Platelet Volume 9.1 FL Neutrophils (%) (Auto) 22.5 % Lymphocytes (%) (Auto) 70.6 % Monocytes (%) (Auto) 3.7 % Eosinophils (%) (Auto) 2.4 % Basophils (%) (Auto) 0.8 % Neutrophils # (Auto) 0.6 TH/MM3 Lymphocytes # (Auto) 1.8 TH/MM3 Monocytes # (Auto) 0.1 TH/MM3 Eosinophils # (Auto) 0.1 TH/MM3 Basophils # (Auto) 0.0 TH/MM3 CBC Comment AUTO DIFF Differential Total Cells Counted 100 Neutrophils % (Manual) 29 % Lymphocytes % 66 % Monocytes % 4 % Basophils % 1 % Neutrophils # (Manual) 0.8 TH/MM3 Differential Comment FINAL DIFF MANUAL Platelet Estimate LOW Platelet Morphology Comment NORMAL Administered Medications Medications (Trade) Dose Ordered Sig/Grant Route PRN Reason Start Time Stop Time Status Last Admin Dose Admin Gabapentin (Neurontin) 300 mg TID PO 03/09/17 09:00 03/10/17 13:49 Gemfibrozil (Lopid) 600 mg BIDAC PO 03/09/17 07:00 03/10/17 11:32 Metoprolol Tartrate (Lopressor) 50 mg BID PO 03/09/17 09:00 03/10/17 00:11 Pantoprazole Sodium (Protonix) 40 mg DAILY PO 03/09/17 09:00 03/10/17 11:32 Potassium Chloride (KCl) 10 meq BID PO 03/09/17 09:00 03/10/17 11:32 Senna/Docusate Sodium (Marialuisa-Colace) 3 tab HS PO 03/09/17 21:00 03/10/17 00:12 Sodium Chloride (NS Flush) 2 ml BID IV FLUSH 03/09/17 09:00 03/10/17 11:32 Mupirocin (Bactroban Nasal 2% Oint) 1 applic TID OTHER 03/10/17 10:00 03/10/17 13:49 Objective Remarks GENERAL: Well-nourished, well-developed patient. SKIN: Warm and dry. HEAD: Normocephalic. no bleeding from nose. EYES: No scleral icterus. No injection or drainage. NECK: Supple, trachea midline. No JVD or lymphadenopathy. LYMPHATIC: No adenopathy. CARDIOVASCULAR: Regular rate and rhythm without murmurs. RESPIRATORY: Breath sounds equal bilaterally. No accessory muscle use. GASTROINTESTINAL: Abdomen soft, non-tender, nondistended. EXTREMITIES: No cyanosis, or edema. MUSCULOSKELETAL: Adequate muscle tone. NEUROLOGICAL: No obvious focal deficit. Awake, alert, and oriented x3. PSYCHIATRIC: Appropriate mood and affect; insight and judgment normal. Assessment/Plan Assessment 1: doing well and no further bleeding and WBC is increasing. can discharge home from my perspective. I have asked her to resume eliquis when platelets are greater then 60,000 as they will be on the upward direction and risk of bleeding at that point small. no need for any Neupogen and wbc are now increasing and neutrophil count > 500. Shaun Emery MD Mar 10, 2017 14:34
[2017-03-10 17:15] VITALS: BP 112/62; PULSE 120; RESP 18; TEMP 98.6; O2SAT 96
[2017-03-10] MEDS: FUROSEMIDE 40 MG TAB PO SCH (17:48)
[2017-03-10 21:21] VITALS: BP 130/58; PULSE 77; RESP 18; TEMP 98.1; O2SAT 95
[2017-03-10 23:09] VITALS: BP 122/56; PULSE 70; RESP 18; TEMP 98.1; O2SAT 98
[2017-03-11 04:27] VITALS: BP 142/66; PULSE 74; RESP 18; TEMP 98.1; O2SAT 98
[2017-03-11 07:15] LABS: AUTOMATED NEUTROPHIL # 0.6 TH/MM3 (1.8-7.7); BASOPHIL % 0.4 % (0.0-2.0); EOSINOPHIL % 1.5 % (0.0-4.0); HEMATOCRIT 26.5 % (35.0-46.0); HEMOGLOBIN 9.2 GM/DL (11.6-15.3); LYMPHOCYTE # 2.4 TH/MM3 (1.0-4.8); MEAN CELL VOLUME 90.2 FL (80.0-100.0); MEAN CORPUSCULAR HEMOGLOBIN 31.5 PG (27.0-34.0); MEAN CORPUSCULAR HGB CONC 34.9 % (32.0-36.0); MEAN PLATELET VOLUME 8.9 FL (7.0-11.0); MONO % 5.3 % (0.0-8.0); MONOCYTE # 0.2 TH/MM3 (0-0.9); NEUT % 18.8 % (16.0-70.0); PLATELET COUNT 52 TH/MM3 (150-450); RED BLOOD COUNT 2.94 MIL/MM3 (4.00-5.30); RED CELL DISTRIBUTION WIDTH 18.3 % (11.6-17.2); WHITE BLOOD COUNT 3.2 TH/MM3 (4.0-11.0)
[2017-03-11 07:37] VITALS: BP 116/56; PULSE 61; RESP 18; TEMP 97.9; O2SAT 97
[2017-03-11 08:00] VITALS: BP 108/53; PULSE 78; RESP 20; TEMP 95.9; O2SAT 95
[2017-03-11] MEDS: POTASSIUM CHLORIDE 10 MEQ CONTROLLED RELEASE TAB PO SCH (08:54)
[2017-03-11] MEDS: GEMFIBROZIL 600 MG TAB PO SCH (08:54)
[2017-03-11] MEDS: GABAPENTIN 300 MG CAP PO SCH ×2 (08:54→14:46)
[2017-03-11] MEDS: PANTOPRAZOLE SOD 40 MG DELAYED RELEASE TAB PO SCH (08:55)
[2017-03-11] MEDS: MUPIROCIN 2% OINT 1 APPLIC/GM SYR OTHER SCH ×2 (08:55→14:46)
[2017-03-11] MEDS: SODIUM CHLORIDE 0.9% FLUSH 10 ML FLUSH IV FLUSH SCH (08:55)
[2017-03-11 10:20] LABS: LYMPHOCYTES 73 % (9-44); MONOCYTES 7 % (0-8); NEUTROPHIL # MANUAL DIFF 0.6 TH/MM3 (1.8-7.7); POLYS (SEG NEUTROPHILS) 19 % (16-70)
--- NOTE | 2017-03-11 11:04 | HHI.PR ---
Subjective Remarks No further nasal bleeding. Pt is comfortable. Pt is tolerating PO intake. No n/v/d. Objective Vitals Vital Signs Date Time Temp Pulse Resp B/P (MAP) Pulse Ox O2 Delivery O2 Flow Rate FiO2 03/11/17 07:37 97.9 61 18 116/56 (76) 97 03/11/17 04:27 98.1 74 18 142/66 (91) 98 03/10/17 23:09 98.1 70 18 122/56 (78) 98 03/10/17 21:21 98.1 77 18 130/58 (82) 95 03/10/17 17:15 98.6 120 18 112/62 (79) 96 03/10/17 12:38 98.2 68 18 111/69 (83) 98 Result Diagram: 03/11/17 0604 Objective Remarks General: NAD, AAOx3 Chest: CTA Cardiac: Regular Abd: +BS, soft ND/NT Ext: Lymphedema in left arm A/P Problem List: (1) Epistaxis ICD Codes: R04.0 - Epistaxis Status: Acute Plan: - Pt is an 82 y/o female with hx of left breast cancer s/p mastectomy and 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 Pt is on chemo with Carboplatinol and Abraxane and follows with Dr. Jones. - She last underwent chemo about 8 days ago per the pt - [place] [facility] [place] with complaints of epistaxis which began the day prior to admission and had been on/off but yesterday persisted - Her labs at admission noted Hgb 7.7/Hct 23.1 - In the ED she had the left nares packed with rapid Rhino with bacitracin on the tip and Afrinol and inflated with 3 cc air. Pt was unable to pass a rapid Rhino on the right nares. - ENT was consulted. Spoke with Dr. Ignacio Lua this morning and he is recommending antibiotic ointment be placed in the nares three times per day as the Rhino rocket was not in place long enough. He felt that it would be better to hold off on anticoagulation another day because of this. - Pt was given 2 units PRBCs on 03/09/17 - Repeat CBC (03/10) noted Hgb 9.4/Hct 27.1, Platelet count 49,000 - Repeat CBC (03/11) Hg 92, plt 52 - Pt does NOT want SNF - will discharge to home with HHC and home PT (2) Anemia ICD Codes: D64.9 - Anemia, unspecified Status: Acute Plan: - Pt received 2 units PRBCs on 03/09/17 - Hg (03/11) 9.2 - Pts H/H has been between 8-9 (3) Atrial fibrillation, controlled ICD Codes: I48.91 - Unspecified atrial fibrillation Plan: - Pt has pacer in place and is on Eliquis and full ASA - We will hold ASA and Eliquis - Appreciate Hematology consultation - ENT evaluated the pt and per conversation with Dr. Mcqueen. ENT recommends holding off on resuming anticoagulation today as the Rhino Rocket was not held in place for an appropriate amount of time. - Oncology note reviewed. Pt can resume Eliquis once platelet count is above 60 - will discharge to home off Eliquis. Pt to have repeat CBC 03/13. Results to pt's Oncologist, Dr. House & PCP, Dr. Thony Galan. (4) Peritoneal carcinomatosis ICD Codes: C78.6 - Secondary malignant neoplasm of retroperitoneum and peritoneum; C80.1 - Malignant (primary) neoplasm, unspecified Status: Chronic Plan: - Oncology consulted Evangelist Grullon DO Mar 11, 2017 11:04
--- NOTE | 2017-03-11 11:05 | HHI.DS ---
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 Patient with continued epistaxis started yesterday between 4-7 pm and then recurred in er nose was packed with rapid Rhino bacitracin on the tip and Afrinol over the actual rapid Rhino and then inserted without complications and inflated with 3 cc air on the right naris was unable to pass a rapid Rhino so used a Merocel cut in half and that is able to dislodge a clot patient coughed that up and packing left in place. Patient's H&H is 7. 7/23. She is chronically anemic from her cancer she is receiving chemotherapy did lose a decent amount of blood from the nasal bleeding she reports vomiting up clots of blood and she will need to be admitted for observation and possible transfusion to be seen by ENT in the morning. Will recheck labs in am and if decrease in hemoglobin will transfuse . At this point will continue Eliquis and hold asa 325. CBC/BMP: 03/11/17 0604 Significant Findings Laboratory Tests Test 03/08/17 18:40 03/09/17 11:10 03/10/17 07:40 03/11/17 06:04 White Blood Count 2.5 TH/MM3 (4.0-11.0) 1.9 TH/MM3 (4.0-11.0) 2.6 TH/MM3 (4.0-11.0) 3.2 TH/MM3 (4.0-11.0) Red Blood Count 2.47 MIL/MM3 (4.00-5.30) 2.30 MIL/MM3 (4.00-5.30) 3.01 MIL/MM3 (4.00-5.30) 2.94 MIL/MM3 (4.00-5.30) Hemoglobin 7.7 GM/DL (11.6-15.3) 7.3 GM/DL (11.6-15.3) 9.4 GM/DL (11.6-15.3) 9.2 GM/DL (11.6-15.3) Hematocrit 23.1 % (35.0-46.0) 21.3 % (35.0-46.0) 27.1 % (35.0-46.0) 26.5 % (35.0-46.0) Platelet Count 60 TH/MM3 (150-450) 57 TH/MM3 (150-450) 49 TH/MM3 (150-450) 52 TH/MM3 (150-450) Lymphocytes (%) (Auto) 69.2 % (9.0-44.0) 74.1 % (9.0-44.0) 70.6 % (9.0-44.0) 74.0 % (9.0-44.0) Neutrophils # (Auto) 0.7 TH/MM3 (1.8-7.7) 0.4 TH/MM3 (1.8-7.7) 0.6 TH/MM3 (1.8-7.7) 0.6 TH/MM3 (1.8-7.7) Band Neutrophils % 11 % (0-6) Lymphocytes % 53 % (9-44) 78 % (9-44) 66 % (9-44) 73 % (9-44) Neutrophils # (Manual) 1.2 TH/MM3 (1.8-7.7) 0.4 TH/MM3 (1.8-7.7) 0.8 TH/MM3 (1.8-7.7) 0.6 TH/MM3 (1.8-7.7) Platelet Estimate LOW (NORMAL) LOW (NORMAL) LOW (NORMAL) LOW (NORMAL) Activated Partial Thromboplast Time 32.4 SEC (24.3-30.1) Red Cell Distribution Width 17.3 % (11.6-17.2) 18.5 % (11.6-17.2) 18.3 % (11.6-17.2) Platelet Morphology Comment ENLARGED (NORMAL) PE at Discharge General: NAD, AAOx3 Chest: CTA Cardiac: Regular Abd: +BS, soft ND/NT Ext: Lymphedema in left arm Evangelist Grullon DO Mar 11, 2017 11:05
--- NOTE | 2017-03-11 11:05 | HHI.FF ---
Face to Face Verification Diagnosis: (1) Atrial fibrillation, controlled (2) Peritoneal carcinomatosis (3) Anemia (4) Epistaxis Physical Therapy Order: Evaluate and Treat, Improve ambulation, Strength and gait training Home Health Nursing Order: Medical education Signs/symptoms of disease process Medication education-adverse effect Nursing assessment with vital signs I have seen patient Vanna Ponce on 03/11/17. My clinical findings support the need for the requested home health care services because: Ltd mobility - disease progression Deconditioned w/ increased weakness Med compliance is questionable Limited ability to care for self Need for psychosocial assistance I certify that my clinical findings support that this patient is homebound because: Impaired cognitive ability/safety Unsafe to leave home unassisted Need for psychosocial assistance Unable to use public transportation Evangelist Grullon DO Mar 11, 2017 11:05
[2017-03-11] MEDS ORDERED: APIX2.5T PO (11:14)
[2017-03-11] MEDS ORDERED: BACTOIN OTHER (11:14)
[2017-03-11 12:00] VITALS: BP 116/55; PULSE 64; RESP 20; TEMP 97.8; O2SAT 96
--- NOTE | 2017-03-11 12:13 | PD.ONC.PN ---
Subjective Subjective Remarks Afebrile overnight. Patient resting in bed. Has just been told she is going home today. She is very excited. No further epistaxis (nose-bleeding). reports she plans to take a shower as soon as she gets home. has an appointment with her casting machine operator helper, Dr. Shepard tomorrow. Objective Data Date Time Temp Pulse Resp B/P (MAP) Pulse Ox O2 Delivery O2 Flow Rate FiO2 03/11/17 07:37 97.9 61 18 116/56 (76) 97 03/11/17 04:27 98.1 74 18 142/66 (91) 98 03/10/17 23:09 98.1 70 18 122/56 (78) 98 03/10/17 21:21 98.1 77 18 130/58 (82) 95 03/10/17 17:15 98.6 120 18 112/62 (79) 96 03/10/17 12:38 98.2 68 18 111/69 (83) 98 Result Diagram: 03/11/17 0604 Laboratory Results Laboratory Tests Test 03/11/17 06:04 White Blood Count 3.2 TH/MM3 Red Blood Count 2.94 MIL/MM3 Hemoglobin 9.2 GM/DL Hematocrit 26.5 % Mean Corpuscular Volume 90.2 FL Mean Corpuscular Hemoglobin 31.5 PG Mean Corpuscular Hemoglobin Concent 34.9 % Red Cell Distribution Width 18.3 % Platelet Count 52 TH/MM3 Mean Platelet Volume 8.9 FL Neutrophils (%) (Auto) 18.8 % Lymphocytes (%) (Auto) 74.0 % Monocytes (%) (Auto) 5.3 % Eosinophils (%) (Auto) 1.5 % Basophils (%) (Auto) 0.4 % Neutrophils # (Auto) 0.6 TH/MM3 Lymphocytes # (Auto) 2.4 TH/MM3 Monocytes # (Auto) 0.2 TH/MM3 Eosinophils # (Auto) 0.0 TH/MM3 Basophils # (Auto) 0.0 TH/MM3 CBC Comment AUTO DIFF Differential Total Cells Counted 100 Neutrophils % (Manual) 19 % Lymphocytes % 73 % Monocytes % 7 % Eosinophils % 1 % Neutrophils # (Manual) 0.6 TH/MM3 Differential Comment FINAL DIFF MANUAL Platelet Estimate LOW Platelet Morphology Comment NORMAL Administered Medications Medications (Trade) Dose Ordered Sig/Grant Route PRN Reason Start Time Stop Time Status Last Admin Dose Admin Gabapentin (Neurontin) 300 mg TID PO 03/09/17 09:00 03/11/17 08:54 Gemfibrozil (Lopid) 600 mg BIDAC PO 03/09/17 07:00 03/11/17 08:54 Metoprolol Tartrate (Lopressor) 50 mg BID PO 03/09/17 09:00 03/10/17 22:37 Pantoprazole Sodium (Protonix) 40 mg DAILY PO 03/09/17 09:00 03/11/17 08:55 Potassium Chloride (KCl) 10 meq BID PO 03/09/17 09:00 03/11/17 08:54 Senna/Docusate Sodium (Marialuisa-Colace) 3 tab HS PO 03/09/17 21:00 03/10/17 22:40 Sodium Chloride (NS Flush) 2 ml BID IV FLUSH 03/09/17 09:00 03/11/17 08:55 Mupirocin (Bactroban Nasal 2% Oint) 1 applic TID OTHER 03/10/17 10:00 03/11/17 08:55 Objective Remarks GENERAL: pleasant, chronically ill appearing female, lying in bed in nad. SKIN: Warm and dry. HEAD: Normocephalic. +alopecia. EYES: No injection or drainage. NECK: Supple, trachea midline. CARDIOVASCULAR: Regular rate and rhythm RESPIRATORY: diminished at bases, anterior plascencia clear. GASTROINTESTINAL: Abdomen soft, non-tender, nondistended. EXTREMITIES: No cyanosis NEUROLOGICAL: awake and alert, normal speech. moving all extremities. Assessment/Plan Problem List: (1) Peritoneal carcinomatosis ICD Codes: C78.6 - Secondary malignant neoplasm of retroperitoneum and peritoneum; C80.1 - Malignant (primary) neoplasm, unspecified Status: Chronic Plan: --has intra-abdominal carcinomatosis likely of ovarian origin. --receives chemotherapy outpatient. (2) Pancytopenia ICD Codes: D61.818 - Other pancytopenia Status: Chronic Plan: --03/11: patient being discharged today and will obtain CBC on Saturday. discussed with patient that she should call the clinic for results of the CBC. If her platelet count is greater than 60K, we will resume d/w Dr. Grullon who will also make her primary care physician aware of plan. --due to chemotherapy Assessment 82y/o female with peritoneal carcinomatosis, admitted with pancytopenia and epistaxis. h/o Coronary artery disease. Atrial fibrillation. Diabetes in the past. Peripheral neuropathy from chemotherapy. Elevated cholesterol. Attending Statement The exam, history, and the medical decision-making described in the above note were completed with the assistance of the mid-level provider. I reviewed and agree with the findings presented. I attest that I had a [id number] encounter with the patient on the same day, and personally performed and documented my assessment and findings in the medical record. No more nose bleed. when i can go home. Pt is still in ER, at bedside. Hold eliquis for now. she will see casting machine operator helper Dr Shepard tomorrow and will d/w him about stopping ASA and resume eliquis. will have cbc on sat in our office. and if plat are >70 then will resume eliquis , d/w pt and . They agree ok to d/c Fu as outpt Cecille Chandler Mar 11, 2017 12:13 Yecenia Jones MD Mar 11, 2017 13:38
[2017-03-11 16:00] VITALS: BP 110/64; PULSE 66; RESP 20; TEMP 95.5; O2SAT 100
[2017-03-11 20:30] VITALS: O2SAT 93
== END 2017-03-11 18:14 | disposition home or self-care (01) ==
LOC: NEPE 17:38 → NEDA 22:03 → NEPFCDU 23:52
PROVIDERS: ADMIT Hospitalist; ATTEND Hospitalist
DX: R04.0 Epistaxis (principal); D61.810 Antineoplastic chemotherapy induced pancytopenia; C78.6 Secondary malignant neoplasm of retroperitoneum and peritoneum; I48.91 Unspecified atrial fibrillation; I25.10 Atherosclerotic heart disease of native coronary artery without angina pectoris; E11.9 Type 2 diabetes mellitus without complications; I10 Essential (primary) hypertension; K59.00 Constipation, unspecified; R18.8 Other ascites; K21.9 Gastro-esophageal reflux disease without esophagitis; Z79.01 Long term (current) use of anticoagulants; Z85.3 Personal history of malignant neoplasm of breast; Z95.0 Presence of cardiac pacemaker; Z95.1 Presence of aortocoronary bypass graft
CPT/HCPCS: 36430; 85007; 85027; 85610; 85730; 86077; 86850; 86870; 86900; 86901; 86902; 86920; 86922; 94664; 96360; 96361; 97162; 99285; G0378; G8987; G8988; J1642; P9016

== ENCOUNTER 2017-04-24 12:56 | Inpatient (IN) | payer MEDICARE ==
[~2017-04-24] VITALS: Ht 152.4 cm; Wt 67.0 kg
[~2017-04-24 12:56] MED LIST changes: -ASPI81CH6 CHEW; +BACTOIN OTHER; -NOVOLOGP2 SQ
[2017-04-24 13:30] VITALS: BP 109/55; PULSE 74; RESP 22; TEMP 97.5; O2SAT 98
[2017-04-24 13:57] VITALS: BP 138/96; PULSE 72; RESP 23; TEMP 97.6; O2SAT 100
--- NOTE | 2017-04-24 14:05 | PD ---
HPI Chief Complaint: Respiratory Symptoms Time Seen by Provider: 13:39 Travel History International Travel<30 days: No Contact w/Intl Traveler<30days: No Traveled to known affect area: No History of Present Illness HPI 82-year-old female complains of shortness of breath. Patient states the symptoms started 3 days ago. Patient states that his shortness breath is worse when lying down. Patient denies any coughing congestion fever chills. Patient states that she has low-grade fever at home. Patient complains of generalized malaise and weakness. Patient has history of metastatic ovarian cancer currently on chemotherapy. Patient has history of left breast cancer status post modified radical mastectomy 1978. Patient has history of atrial fibrillation, CAD status post CABG and pacer placement. Patient has history of diabetes, GERD, hyperlipidemia and hypertension. Patient states that she has occasional chest pain with or shortness of breath. Patient described the chest pain is transient substernal pressure without radiation. Patient denies palpitation nausea diaphoresis. Patient was seen a local urgent care and referred to ED for evaluation. PFSH Past Medical History Hx Anticoagulant Therapy: Yes (ELOQUIS) Asthma: No Heart Rhythm Problems: No Cancer: Yes (BREAST AND OMENTAL ) Cardiovascular Problems: Yes (Stents, Pacemaker) High Cholesterol: No Chemotherapy: Yes Chest Pain: No Congestive Heart Failure: No COPD: No Cerebrovascular Accident: No Diabetes: Yes Diminished Hearing: No Endocrine: Yes (DM) Gastrointestinal Disorders: Yes (GERD) Genitourinary: No Hepatitis: No Hiatal Hernia: No Hypertension: Yes Immune Disorder: No Implanted Vascular Access Dvce: Yes (INFUSA PORT) Musculoskeletal: No Neurologic: No Psychiatric: No Reproductive: No Respiratory: Yes Immunizations Current: Yes Radiation Therapy: No Sleep Apnea: No Thyroid Disease: No Past Surgical History Abdominal Surgery: No AICD: No Cardiac Surgery: Yes (STENTS, CABG, PACER) Ear Surgery: No Endocrine Surgery: No Eye Surgery: No Genitourinary Surgery: No Gynecologic Surgery: No Hysterectomy: Yes (L Mastectomy) Joint Replacement: No Mastectomy: Yes Oral Surgery: No Pacemaker: Yes Thoracic Surgery: Yes (LEFT BREAST) Other Surgery: Yes (LEFT BREAST REMOVED, STENTS, CABG,PACER, PORT PLACEMENT) Social History Alcohol Use: No Tobacco Use: No Substance Use: No Allergies-Medications (Allergen,Severity, Reaction): Coded Allergies: amoxicillin (Unverified Allergy, Severe, Nausea/Vomiting, 3/14/18) codeine (Unverified Allergy, Severe, GI UPSET, 04/24/17) benazepril (Unverified Allergy, Intermediate, COUGHING, 04/24/17) captopril (Unverified Allergy, Intermediate, COUGHING, 04/24/17) enalaprilat (Unverified Allergy, Intermediate, COUGHING, 04/24/17) fosinopril (Unverified Allergy, Intermediate, COUGHING, 04/24/17) lisinopril (Unverified Allergy, Intermediate, COUGHING, 04/24/17) quinapril (Unverified Allergy, Intermediate, COUGHING, 04/24/17) Reported Meds & Prescriptions Reported Meds & Active Scripts Active Eliquis (Apixaban) 2.5 Mg Tab 2.5 Mg PO BID 30 Days Pt may resume eliquis once platelet count is above 60. Pt to have repeat CBC on 03/13/17 at outpt laboratory. Reported Senna-Plus (Sennosides-Docusate Sodium) 8.6-50 Mg Tab 3 Tab PO HS Gabapentin 300 Mg Cap 300 Mg PO TID Furosemide 40 Mg Tab 40 Mg PO DAILY Pantoprazole (Pantoprazole Sodium) 40 Mg Tab 40 Mg PO DAILY Metoprolol Tartrate 50 Mg Tab 50 Mg PO BID K-Tab (Potassium Chloride) 10 Meq Tab 10 Meq PO BID Gemfibrozil 600 Mg Tab 600 Mg PO BIDAC Take 30 minutes prior to breakfast and dinner. Review of Systems General / Constitutional: No: Fever Eyes: No: Visual changes HENT: No: Headaches Cardiovascular: Positive: Chest Pain or Discomfort Respiratory: Positive: Shortness of Breath Gastrointestinal: No: Abdominal Pain Genitourinary: No: Dysuria Musculoskeletal: No: Pain Skin: No Rash Neurologic: No: Weakness Psychiatric: No: Depression Endocrine: No: Polydipsia Hematologic/Lymphatic: No: Easy Bruising Physical Exam Narrative GENERAL: Well-nourished, well-developed patient. SKIN: Focused skin assessment warm/dry. HEAD: Normocephalic. EYES: No scleral icterus. No injection or drainage. NECK: Supple, trachea midline. No JVD or lymphadenopathy. CARDIOVASCULAR: Regular rate and rhythm without murmurs, gallops, or rubs. RESPIRATORY: Breath sounds equal bilaterally. No accessory muscle use. Few rhonchi at the bases. GASTROINTESTINAL: Abdomen soft, non-tender, nondistended. MUSCULOSKELETAL: No cyanosis, or edema. BACK: Nontender without obvious deformity. No CVA tenderness. Neurologic exam normal. Data Data Last Documented VS Vital Signs Date Time Temp Pulse Resp B/P (MAP) Pulse Ox O2 Delivery O2 Flow Rate FiO2 04/24/17 16:51 81 17 132/73 (92) 100 Room Air 04/24/17 13:57 97.6 Orders Orders Electrocardiogram (04/24/17 13:49) Complete Blood Count With Diff (04/24/17 13:49) Comprehensive Metabolic Panel (04/24/17 13:49) Creatine Kinase (Cpk) (04/24/17 13:49) Troponin I (04/24/17 13:49) B-Type Natriuretic Peptide (04/24/17 13:49) Prothrombin Time / Inr (Pt) (04/24/17 13:49) Act Partial Throm Time (Ptt) (04/24/17 13:49) Urinalysis - C+S If Indicated (04/24/17 13:49) Thyroid Stimulating Hormone (04/24/17 13:49) Chest, Single Ap (04/24/17 13:49) Iv Access Insert/Monitor (04/24/17 13:49) Ecg Monitoring (04/24/17 13:49) Oximetry (04/24/17 13:49) Ct Pulmonary Angiogram (04/24/17 13:49) Iodixanol 320 Inj (Rad Ct) (Visipaque 32 (04/24/17 15:57) Furosemide Inj (Lasix Inj) (04/24/17 17:00) Potassium Chloride (Kcl) (04/24/17 17:00) Orphenadrine Inj (Norflex Inj) (04/24/17 17:30) Admit Order (Ed Use Only) (04/24/17 17:56) Activity Bed Rest With Brp (04/24/17 17:58) Vital Signs (Adult) Q4H (04/24/17 17:58) Cardiac Rhythm .As Directed (04/24/17 17:58) Notify Dr: Other .PRN (04/24/17 17:58) Notify . Parameters (04/24/17 17:58) Resp Oxygen Nasal Cannula (04/24/17 ) Diet Npo (04/24/17 Dinner) Ckmb (Isoenzyme) Profile (04/24/17 18:00) Ckmb (Isoenzyme) Profile (04/24/17 21:00) Troponin I (04/24/17 18:00) Troponin I (04/24/17 21:00) Electrocardiogram (04/24/17 18:00) Electrocardiogram (04/24/17 21:00) ^ Obtain (04/24/17 17:58) Sodium Chloride 0.9% Flush (Ns Flush) (04/24/17 18:00) Sodium Chloride 0.9% Flush (Ns Flush) (04/24/17 21:00) Acetaminophen (Tylenol) (04/24/17 18:00) Ondansetron Inj (Zofran Inj) (04/24/17 18:00) Telecasting Technician / Telemetry [id number] (04/24/17 17:58) Consult Cardiology (04/24/17 ) Urine Culture (04/24/17 17:15) Labs Laboratory Tests Test 04/24/17 14:01 04/24/17 17:15 White Blood Count 5.4 TH/MM3 Red Blood Count 3.63 MIL/MM3 Hemoglobin 11.3 GM/DL Hematocrit 33.8 % Mean Corpuscular Volume 93.0 FL Mean Corpuscular Hemoglobin 31.0 PG Mean Corpuscular Hemoglobin Concent 33.4 % Red Cell Distribution Width 18.8 % Platelet Count 93 TH/MM3 Mean Platelet Volume 9.8 FL Neutrophils (%) (Auto) 57.7 % Lymphocytes (%) (Auto) 33.6 % Monocytes (%) (Auto) 8.0 % Eosinophils (%) (Auto) 0.2 % Basophils (%) (Auto) 0.5 % Neutrophils # (Auto) 3.1 TH/MM3 Lymphocytes # (Auto) 1.8 TH/MM3 Monocytes # (Auto) 0.4 TH/MM3 Eosinophils # (Auto) 0.0 TH/MM3 Basophils # (Auto) 0.0 TH/MM3 CBC Comment AUTO DIFF Differential Comment AUTO DIFF CONFIRMED Platelet Estimate LOW Platelet Morphology Comment NORMAL Prothrombin Time 12.4 SEC Prothromb Time International Ratio 1.2 RATIO Activated Partial Thromboplast Time 30.6 SEC Blood Urea Nitrogen 23 MG/DL Creatinine 1.37 MG/DL Random Glucose 128 MG/DL Total Protein 8.1 GM/DL Albumin 2.9 GM/DL Calcium Level 8.4 MG/DL Alkaline Phosphatase 73 U/L Aspartate Amino Transf (AST/SGOT) 40 U/L Alanine Aminotransferase (ALT/SGPT) 13 U/L Total Bilirubin 0.9 MG/DL Sodium Level 139 MEQ/L Potassium Level 3.6 MEQ/L Chloride Level 104 MEQ/L Carbon Dioxide Level 22.3 MEQ/L Anion Gap 13 MEQ/L Estimat Glomerular Filtration Rate 37 ML/MIN Total Creatine Kinase 127 U/L Troponin I 4.49 NG/ML B-Type Natriuretic Peptide 3698 PG/ML Thyroid Stimulating Hormone 3rd Gen 4.320 uIU/ML Urine Color YELLOW Urine Turbidity HAZY Urine pH 5.5 Urine Specific [place] 1.031 Urine Protein 30 mg/dL Urine Glucose (UA) NEG mg/dL Urine Ketones NEG mg/dL Urine Occult Blood TRACE Urine Nitrite NEG Urine Bilirubin NEG Urine Urobilinogen LESS THAN 2.0 MG/DL Urine Leukocyte Esterase LARGE Urine RBC 12 /hpf Urine WBC 16 /hpf Urine Squamous Epithelial Cells 19 /hpf Urine Bacteria MOD /hpf Urine Hyaline Casts 13 /lpf Microscopic Urinalysis Comment CULTURE INDICATED MDM Medical Decision Making Medical Screen Exam Complete: Yes Emergency Medical Condition: Yes Interpretation(s) 1640 p.m. Last Impressions Chest X-Ray 04/24/179 Signed Impressions: Service Date/Time: Monday, April 24, 2017 14:04 - CONCLUSION: 1. Cardiomegaly with mild positive fluid balance. 2. Stable bilateral lower lobe airspace disease slightly more confluent at the left lung base. Findings may reflect atelectasis and potentially post radiation change in the left lower lung zone. Cortez Rodriguez MD CT Angiography 04/24/17 1346 Signed Impressions: Service Date/Time: Monday, April 24, 2017 15:38 - CONCLUSION: 1. No evidence of pulmonary embolism. 2. Bibasilar alveolar consolidations consistent with atelectasis or pneumonia. Clinical correlation is recommended. 3. Scattered patchy opacities within the left upper lobe within the apex and lingula. 4. A 9 mm noncalcified left apical nodule. Followup CT of the chest in 6 months is recommended to confirm stability of this nodule. 5. Cardiomegaly and coronary artery calcifications. 6. Degenerative changes and scoliosis of the thoracic spine. Jaden Soria MD 1641 PM. CBC WBC 5.4. Hemoglobin 11.3 hematocrit 33.8. Normal differential. BUN 23. Creatinine 1.37. GFR is 37. Troponin 4.49. BNP 3698. Differential Diagnosis Differential diagnosis including bronchitis, pneumonia, PE, pneumothorax, angina , IA. Narrative Course 82-year-old female with shortness of breath. History of metastatic ovarian cancer on chemotherapy. Lasix 40 mg IV. KCl 20 mEq p.o. given. Spoke with terrazzo grinder Dr. Duff. Advised hold Eliquis. Serial EKG and cardiac enzymes. Diuresis. Diagnosis Primary Impression: Pulmonary edema Qualified Codes: J81.0 - Acute pulmonary edema Additional Impression: Troponin level elevated Admitting Information Admitting Physician Requests: Admit Miko Galindo MD Apr 24, 2017 14:05
[2017-04-24 14:15] LABS: AUTOMATED NEUTROPHIL # 3.1 TH/MM3 (1.8-7.7); BASOPHIL % 0.5 % (0.0-2.0); EOSINOPHIL % 0.2 % (0.0-4.0); HEMATOCRIT 33.8 % (35.0-46.0); HEMOGLOBIN 11.3 GM/DL (11.6-15.3); LYMPH % 33.6 % (9.0-44.0); LYMPHOCYTE # 1.8 TH/MM3 (1.0-4.8); MEAN CORPUSCULAR HGB CONC 33.4 % (32.0-36.0); MEAN PLATELET VOLUME 9.8 FL (7.0-11.0); MONOCYTE # 0.4 TH/MM3 (0-0.9); NEUT % 57.7 % (16.0-70.0); PLATELET COUNT 93 TH/MM3 (150-450); RED BLOOD COUNT 3.63 MIL/MM3 (4.00-5.30); RED CELL DISTRIBUTION WIDTH 18.8 % (11.6-17.2); WHITE BLOOD COUNT 5.4 TH/MM3 (4.0-11.0)
[2017-04-24 14:24] LABS: INTERNATIONAL NORMALIZED RATIO 1.2 RATIO; PROTHROMBIN TIME - PATIENT 12.4 SEC (9.8-11.6)
[2017-04-24 14:33] LABS: ALBUMIN 2.9 GM/DL (3.4-5.0); AST (GOT) 40 U/L (15-37); BICARBONATE 22.3 MEQ/L (21.0-32.0); BLOOD UREA NITROGEN 23 MG/DL (7-18); CALCIUM 8.4 MG/DL (8.5-10.1); CHLORIDE 104 MEQ/L (98-107); CREATININE 1.37 MG/DL (0.50-1.00); GLOMERULAR FILTRATION RATE 37 ML/MIN (>89); GLUCOSE,RANDOM 128 MG/DL (74-106); SODIUM (NA) 139 MEQ/L (136-145)
[2017-04-24 14:45] LABS: ALKALINE PHOSPHATASE 73 U/L (45-117); ALT (GPT) 13 U/L (10-53); TOTAL BILIRUBIN ADULT 0.9 MG/DL (0.2-1.0); TOTAL PROTEIN 8.1 GM/DL (6.4-8.2)
--- NOTE | 2017-04-24 14:45 | RADRPT ---
EXAM DATE/TIME: 04/24/2017 14:04 [facility] COMPARISON: CHEST SINGLE AP, October 02, 2015, 8:02. INDICATIONS : Short of breath. Patient states she has difficulty breathing. MEDICAL HISTORY : Carcinoma, breast. Breast CA 40 yrs ago. Stomach CA, chemo 2 weeks ago. SURGICAL HISTORY : CABG. CABG 3-4 yrs ago. Heart stents. Port. ENCOUNTER: Initial ACUITY: 1 day PAIN SCORE: 0/10 LOCATION: Bilateral chest FINDINGS: One right IJ [id number] with pacemaker in place. Interrupted median sternotomy wires similar to pr evious exam. Mild diffuse interstitial prominence with bilateral lower lung zone airspace disease, mo re confluent at the left lung base. The cardiac silhouette is mildly enlarged. Remainder of the exam is unchanged. CONCLUSION: 1. Cardiomegaly with mild positive fluid balance. 2. Stable bilateral lower lobe airspace disease slightly more confluent at the left lung base. Findin gs may reflect atelectasis and potentially post radiation change in the left lower lung zone. Cortez Rodriguez MD on April 24, 2017 at 14:40 Board Certified Radiologist. This report was verified electronically.
[2017-04-24 15:13] LABS: TROPONIN I 4.49 NG/ML (0.02-0.05)
[2017-04-24] MEDS ORDERED: IODIXANOL 320 MG/ML 10 ML VIAL (for Rad CT) IVCONTRAST ONE (15:57)
--- NOTE | 2017-04-24 16:04 | RADRPT ---
EXAM DATE/TIME: 04/24/2017 15:38 [facility] COMPARISON: CT PULMONARY ANGIOGRAM, March 28, 2015, 19:35. INDICATIONS : Chest pain, shortness of breath for 3 days. IV CONTRAST: 46 cc Visipaque (iodixanol) IV RADIATION DOSE: CTDIvol (mGy) MEDICAL HISTORY : Cardiovascular disease. Hypertension. Carcinoma, breast.Omental cancer, diabetes SURGICAL HISTORY : Hysterectomy. mastectomy ENCOUNTER: Initial ACUITY: 1 day PAIN SCALE: 7/10 LOCATION: chest TECHNIQUE: Volumetric scanning of the chest was performed using a pulmonary embolism protocol MIP images were re constructed. Using automated exposure control and adjustment of the mA and/or kV according to patien t size, radiation dose was kept as low as reasonably achievable to obtain optimal diagnostic quality images. DICOM format image data is available electronically for review and comparison. Follow-up recommendations for detected pulmonary nodules are based at a minimum on nodule size and pa tient risk factors according to Fleischner Society Guidelines. FINDINGS: There is no evidence of pulmonary embolism. Small bilateral pleural effusions are noted. Bibasilar al veolar consolidations are noted consistent with compressive atelectasis and/or draped. Patchy opacity is noted within the lingula of the left upper lobe as well as within the left anterior apex also. Th ere is a 9 mm noncalcified nodule within the left lung apex consistent with nodule infiltrate or true pulmonary nodule. The heart is enlarged. Coronary artery calcifications are noted. No mediastinal, h ilar or axillary lymphadenopathy is noted changes are noted throughout the thoracic spine. CONCLUSION: 1. No evidence of pulmonary embolism. 2. Bibasilar alveolar consolidations consistent with atelectasis or pneumonia. Clinical correlation i s recommended. 3. Scattered patchy opacities within the left upper lobe within the apex and lingula. 4. A 9 mm noncalcified left apical nodule. Followup CT of the chest in 6 months is recommended to con firm stability of this nodule. 5. Cardiomegaly and coronary artery calcifications. 6. Degenerative changes and scoliosis of the thoracic spine. Jaden Soria MD on April 24, 2017 at 15:56 Board Certified Radiologist. This report was verified electronically.
[2017-04-24 16:51] VITALS: BP 132/73; PULSE 81; RESP 17; O2SAT 100
[2017-04-24] MEDS ORDERED: FUROSEMIDE 40 MG/4 ML VIAL IV PUSH ONE (17:00)
[2017-04-24] MEDS ORDERED: POTASSIUM CHLORIDE 20 MEQ CONTROLLED RELEASE TAB PO ONE (17:00)
[2017-04-24] MEDS ORDERED: ORPHENADRINE INJ 60 MG/2 ML AMP IM ONE (17:30)
[2017-04-24 18:00] LABS: BACTERIA, URINE MOD /hpf; BILIRUBIN, URINE NEG (NEG); BLOOD, URINE TRACE (NEG); GLUCOSE,URINE NEG (NEG); HYALINE CAST, URINE 13 /lpf (RARE); KETONE, URINE NEG (NEG); NITRITE,URINE NEG (NEG); PH, URINE 5.5 (5.0-8.5); SQUAMOUS EPITHELIAL CELL URINE 19 /hpf (0-5); URINE COLOR YELLOW (YELLW/STRAW); URINE LEUKOCYTE ESTERASE LARGE (NEG)
[2017-04-24] MEDS ORDERED: ACETAMINOPHEN 500 MG CPLT PO PRN (18:00)
[2017-04-24] MEDS ORDERED: SODIUM CHLORIDE 0.9% FLUSH 10 ML FLUSH IV FLUSH PRN ×2 (18:00→18:30)
[2017-04-24] MEDS ORDERED: ONDANSETRON HCL 4 MG/2 ML VIAL IV PUSH PRN (18:00)
[2017-04-24 18:10] VITALS: O2SAT 100
[2017-04-24] MEDS ORDERED: MAGNESIUM HYDROXIDE SUSP 30 ML CUP PO PRN (18:30)
[2017-04-24] MEDS ORDERED: LACTULOSE SYRUP 20 GM/30 ML CUP PO PRN (18:30)
[2017-04-24] MEDS ORDERED: BISACODYL 10 MG SUPP RECTAL PRN (18:30)
[2017-04-24] MEDS ORDERED: SENNOSIDES 8.6 MG TAB PO PRN (18:30)
[2017-04-24] MEDS ORDERED: NALOXONE HCL 0.4 MG/ML AMP IV PUSH PRN (18:30)
--- NOTE | 2017-04-24 20:09 | HHI.HP ---
HPI Service [facility] Primary Care Physician Thony Galan M.D. Admission Diagnosis Pulmonary edema. Elevated troponin. Renal insufficiency. Chief Complaint: 3 days increasing SOB Travel History International Travel<30 Days: No Contact w/Intl Traveler <30 Da: No Traveled to Known Affected Are: No History of Present Illness 82-year-old female complains of shortness of breath. Patient states the symptoms started 3 days ago. Patient states that his shortness breath is worse when lying down. Patient denies any coughing congestion fever chills. Patient states that she may have had low-grade fever at home. Patient complains of generalized malaise and weakness. 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 Patient has history of left breast cancer status post modified radical mastectomy 1978. Patient has history of atrial fibrillation, CAD status post CABG and pacer placement. Patient has history of diabetes, GERD , hyperlipidemia and hypertension. Patient states that she has occasional chest pain with or shortness of breath. Patient described the chest pain is transient substernal pressure without radiation. Patient denies palpitation nausea diaphoresis. In er had chest xray and CTA suggestive of CHF and increased BNP and troponin level ekg no acute changes . Cardiology notified hold eliquis recheck labs and may need cath. Review of Systems Respiratory: COMPLAINS OF: Shortness of breath Cardiovascular: COMPLAINS OF: Chest pain Past Family Social History Past Medical History afib,cad,cabg,metastatic cancer breast omental,GERD,hyperlipid,htn Past Surgical History infusaport,left mastectomy cabg pacer,stents Reported Medications Eliquis (Apixaban) 2.5 Mg Tab 2.5 Mg PO BID 30 Days Pt may resume eliquis once platelet count is above 60. Pt to have repeat CBC on 03/13/17 at outpt laboratory. Reported Senna-Plus (Sennosides-Docusate Sodium) 8.6-50 Mg Tab 3 Tab PO HS Gabapentin 300 Mg Cap 300 Mg PO TID Furosemide 40 Mg Tab 40 Mg PO DAILY Pantoprazole (Pantoprazole Sodium) 40 Mg Tab 40 Mg PO DAILY Metoprolol Tartrate 50 Mg Tab 50 Mg PO BID K-Tab (Potassium Chloride) 10 Meq Tab 10 Meq PO BID Gemfibrozil 600 Mg Tab 600 Mg PO BIDAC Take 30 minutes pr Allergies: Coded Allergies: amoxicillin (Unverified Allergy, Severe, Nausea/Vomiting, 04/24/17) codeine (Unverified Allergy, Severe, GI UPSET, 04/24/17) benazepril (Unverified Allergy, Intermediate, COUGHING, 04/24/17) captopril (Unverified Allergy, Intermediate, COUGHING, 04/24/17) enalaprilat (Unverified Allergy, Intermediate, COUGHING, 04/24/17) fosinopril (Unverified Allergy, Intermediate, COUGHING, 04/24/17) lisinopril (Unverified Allergy, Intermediate, COUGHING, 04/24/17) quinapril (Unverified Allergy, Intermediate, COUGHING, 04/24/17) Social History NS,ND Physical Exam Vital Signs Vital Signs Date Time Temp Pulse Resp B/P (MAP) Pulse Ox O2 Delivery O2 Flow Rate FiO2 04/24/17 18:10 100 21 04/24/17 16:51 81 17 132/73 (92) 100 Room Air 04/24/17 13:57 97.6 72 23 138/96 (110) 100 Room Air 04/24/17 13:42 99 Room Air 04/24/17 13:30 97.5 74 22 109/55 (73) 98 Physical Exam GENERAL: This is a well-nourished, well-developed patient, in no apparent distress. SKIN: No rashes, ecchymoses or lesions. Cool and dry. HEAD: Atraumatic. Normocephalic. No temporal or scalp tenderness. EYES: Pupils equal round and reactive. Extraocular motions intact. No scleral icterus. No injection or drainage. ENT: Nose without bleeding, purulent drainage or septal hematoma. Throat without erythema, tonsillar hypertrophy or exudate. Uvula midline. Airway patent. NECK: Trachea midline. No JVD or lymphadenopathy. Supple, nontender, no meningeal signs. CARDIOVASCULAR: Regular rate and rhythm without murmurs, gallops, or rubs. RESPIRATORY: Decrease breath sounds with rales bases GASTROINTESTINAL: Abdomen soft, non-tender, nondistended. No hepato-splenomegaly , or palpable masses. No guarding. MUSCULOSKELETAL: Extremities without clubbing, cyanosis, or edema. No joint tenderness, effusion, or edema noted. No calf tenderness. Negative Homans sign bilaterally. NEUROLOGICAL: Awake and alert. Cranial nerves II through XII intact. Motor and sensory grossly within normal limits. Five out of 5 muscle strength in all muscle groups. Normal speech. Laboratory Laboratory Tests Test 04/24/17 14:01 04/24/17 17:15 04/24/17 19:08 White Blood Count 5.4 Red Blood Count 3.63 Hemoglobin 11.3 Hematocrit 33.8 Mean Corpuscular Volume 93.0 Mean Corpuscular Hemoglobin 31.0 Mean Corpuscular Hemoglobin Concent 33.4 Red Cell Distribution Width 18.8 Platelet Count 93 Mean Platelet Volume 9.8 Neutrophils (%) (Auto) 57.7 Lymphocytes (%) (Auto) 33.6 Monocytes (%) (Auto) 8.0 Eosinophils (%) (Auto) 0.2 Basophils (%) (Auto) 0.5 Neutrophils # (Auto) 3.1 Lymphocytes # (Auto) 1.8 Monocytes # (Auto) 0.4 Eosinophils # (Auto) 0.0 Basophils # (Auto) 0.0 CBC Comment AUTO DIFF Differential Comment AUTO DIFF CONFIRMED Platelet Estimate LOW Platelet Morphology Comment NORMAL Prothrombin Time 12.4 Prothromb Time International Ratio 1.2 Activated Partial Thromboplast Time 30.6 Blood Urea Nitrogen 23 Creatinine 1.37 Random Glucose 128 Total Protein 8.1 Albumin 2.9 Calcium Level 8.4 Alkaline Phosphatase 73 Aspartate Amino Transf (AST/SGOT) 40 Alanine Aminotransferase (ALT/SGPT) 13 Total Bilirubin 0.9 Sodium Level 139 Potassium Level 3.6 Chloride Level 104 Carbon Dioxide Level 22.3 Anion Gap 13 Estimat Glomerular Filtration Rate 37 Total Creatine Kinase 127 Troponin I 4.49 B-Type Natriuretic Peptide 3698 Thyroid Stimulating Hormone 3rd Gen 4.320 Urine Color YELLOW Urine Turbidity HAZY Urine pH 5.5 Urine Specific [place] 1.031 Urine Protein 30 Urine Glucose (UA) NEG Urine Ketones NEG Urine Occult Blood TRACE Urine Nitrite NEG Urine Bilirubin NEG Urine Urobilinogen LESS THAN 2.0 Urine Leukocyte Esterase LARGE Urine RBC 12 Urine WBC 16 Urine Squamous Epithelial Cells 19 Urine Bacteria MOD Urine Hyaline Casts 13 Microscopic Urinalysis Comment CULTURE INDICATED Date/Time Source Procedure Growth Status 04/24/17 17:15 Urine Random Urine Urine Culture Pending Received Result Diagram: 04/24/17 1401 04/24/17 1401 Imaging Last 24 hours Impressions Chest X-Ray 3/14/18 1349 Signed Impressions: Service Date/Time: Monday, April 24, 2017 14:04 - CONCLUSION: 1. Cardiomegaly with mild positive fluid balance. 2. Stable bilateral lower lobe airspace disease slightly more confluent at the left lung base. Findings may reflect atelectasis and potentially post radiation change in the left lower lung zone. Cortez Rodriguez MD CT Angiography 04/24/171348 Signed Impressions: Service Date/Time: Monday, April 24, 2017 15:38 - CONCLUSION: 1. No evidence of pulmonary embolism. 2. Bibasilar alveolar consolidations consistent with atelectasis or pneumonia. Clinical correlation is recommended. 3. Scattered patchy opacities within the left upper lobe within the apex and lingula. 4. A 9 mm noncalcified left apical nodule. Followup CT of the chest in 6 months is recommended to confirm stability of this nodule. 5. Cardiomegaly and coronary artery calcifications. 6. Degenerative changes and scoliosis of the thoracic spine. Jaden Soria MD Course in er given IV lasix Caprini VTE Risk Assessment Caprini VTE Risk Assessment: Mod/High Risk (score >= 2) Caprini Risk Assessment Model Point Value = 1 Point Value = 2 Point Value = 3 Point Value = 5 Age 41-60 Minor surgery BMI > 25 kg/m2 Swollen legs Varicose veins or History of unexplained or recurrent spontaneous Oral contraceptives or hormone replacement Sepsis (< 1 month) Serious lung disease, including pneumonia (< 1 month) Abnormal pulmonary function Acute myocardial infarction Congestive heart failure (< 1 month) History of inflammatory bowel disease Medical patient at bed rest Age 61-74 Arthroscopic surgery Major open surgery (> 45 min) Laparoscopic surgery (> 45 min) Malignancy Confined to bed (> 72 hours) Immobilizing plaster cast Central venous access Age >= 75 History of VTE Family history of VTE Factor V Leiden Prothrombin [id number] Lupus anticoagulant Anticardiolipin antibodies Elevated serum homocysteine Heparin-induced thrombocytopenia Other congenital or acquired thrombophilia Stroke (< 1 month) Elective arthroplasty Hip, pelvis, or leg fracture Acute spinal cord injury (< 1 month) Prophylaxis Regimen Total Risk Factor Score Risk Level Prophylaxis Regimen 0-1 Low Early ambulation 2 Moderate Order ONE of the following: *Sequential Compression Device (SCD) *Heparin 5000 units SQ BID 3-4 Higher Order ONE of the following medications: *Heparin 5000 units SQ TID *Enoxaparin/Lovenox 40 mg SQ daily (WT < 150 kg, CrCl > 30 mL/min) *Enoxaparin/Lovenox 30 mg SQ daily (WT < 150 kg, CrCl > 10-29 mL/min) *Enoxaparin/Lovenox 30 mg SQ BID (WT < 150 kg, CrCl > 30 mL/min) AND/OR *Sequential Compression Device (SCD) 5 or more Highest Order ONE of the following medications: *Heparin 5000 units SQ TID (Preferred with Epidurals) *Enoxaparin/Lovenox 40 mg SQ daily (WT < 150 kg, CrCl > 30 mL/min) *Enoxaparin/Lovenox 30 mg SQ daily (WT < 150 kg, CrCl > 10-29 mL/min) *Enoxaparin/Lovenox 30 mg SQ BID (WT < 150 kg, CrCl > 30 mL/min) AND *Sequential Compression Device (SCD) Assessment and Plan Problem List: (1) Pulmonary edema ICD Codes: J81.1 - Chronic pulmonary edema Status: Acute Plan: will continue IV lasix with lab recheck with bmp bnp (2) Troponin level elevated ICD Codes: R79.89 - Other specified abnormal findings of blood chemistry Status: Acute Plan: no significant chest pain cardiology aware of positive troponin will recheck ,will hold anticoagulant 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 In the case of services not specified as inpatient-only, they are appropriately provided as inpatient services in accordance with the 2-midnight benchmark. Estimated LOS (days): 3 3 days is the estimated time the patient will need to remain in the hospital, assuming treatment plan goals are met and no additional complications. Post-Hospital Plan: Not yet determined Problem Qualifiers (1) Pulmonary edema: Qualified Codes: J81.0 - Acute pulmonary edema Rajeev Devlin MD Apr 24, 2017 20:09
[2017-04-24 20:16] LABS: TROPONIN I 5.06 NG/ML (0.02-0.05)
[2017-04-24] MEDS: SODIUM CHLORIDE 0.9% FLUSH 10 ML FLUSH IV FLUSH SCH (21:00)
[2017-04-24] MEDS ORDERED: SODIUM CHLORIDE 0.9% FLUSH 10 ML FLUSH IV FLUSH SCH (21:00)
[2017-04-24] MEDS: DOCUSATE SODIUM 50 MG/SENNA 8.6 MG TAB PO SCH (21:00)
[2017-04-24] MEDS ORDERED: DOCUSATE SODIUM 50 MG/SENNA 8.6 MG TAB PO SCH (21:00)
[2017-04-24 21:11] VITALS: BP 124/80; PULSE 84; RESP 18; O2SAT 94
[2017-04-24] MEDS: METOPROLOL TARTRATE 50 MG TAB PO SCH (21:21)
[2017-04-24] MEDS: POTASSIUM CHLORIDE 10 MEQ CONTROLLED RELEASE TAB PO SCH (21:22)
[2017-04-24 22:04] LABS: TROPONIN I 7.43 NG/ML (0.02-0.05)
[2017-04-24 22:43] VITALS: BP 108/61; PULSE 69; RESP 18; O2SAT 98
[2017-04-25] VITALS (10 sets, daily range): BP systolic 98–133; BP diastolic 52–84; PULSE 67–82; RESP 18–28; TEMP 97.8–98.8; O2SAT 99–100
[2017-04-25] MEDS: HEPARIN 25,000 UNITS-D5W 250 ML - PREMIX IV PRN (00:02)
[2017-04-25 05:23] LABS: BICARBONATE 22.3 MEQ/L (21.0-32.0); CALCIUM 8.9 MG/DL (8.5-10.1); CREATININE 1.53 MG/DL (0.50-1.00)
[2017-04-25] MEDS: GEMFIBROZIL 600 MG TAB PO SCH ×2 (07:00→17:45)
--- NOTE | 2017-04-25 07:52 | PD.CONS ---
HPI Consult Requested By Primary Care Physician Thony Galan M.D. History of Present Illness 82-year-old female with a past medical history of CAD s/p PCI and CABG, A. fib on Eliquis, HTN, HLD, metastatic breast cancer status post recent chemotherapy in remission, GERD who presented for shortness of breath. For the past 3 days the patient has noticed worsening shortness of breath, dyspnea on exertion, and orthopnea. The patient denies any prior history of CHF. She denies any angina (tiredness) like she had with her prior cardiac interventions. She does have some chronic chest wall discomfort from displaced sternal wires, and replace some of them had to be removed by plastic surgery as they've been poking through the skin. Her chest x-ray was suggestive of mild edema. She received Lasix in the ED yesterday and reports her shortness of breath is improving with good diuresis overnight. BNP was 3600 on admission and has decreased to 1200 overnight. Her troponins have been found to be elevated up to 7.43 and she is on heparin drip with Eliquis held. Reports history of heart murmur, denies any significant valve disease. Review of Systems Negative except as stated in the history of present illness Past Family Social History Allergies: Coded Allergies: amoxicillin (Unverified Allergy, Severe, Nausea/Vomiting, 04/24/17) codeine (Unverified Allergy, Severe, GI UPSET, 04/24/17) benazepril (Unverified Allergy, Intermediate, COUGHING, 04/24/17) captopril (Unverified Allergy, Intermediate, COUGHING, 04/24/17) enalaprilat (Unverified Allergy, Intermediate, COUGHING, 04/24/17) fosinopril (Unverified Allergy, Intermediate, COUGHING, 04/24/17) lisinopril (Unverified Allergy, Intermediate, COUGHING, 04/24/17) quinapril (Unverified Allergy, Intermediate, COUGHING, 04/24/17) Past Medical History afib cad metastatic cancer breast s/p chemo in remission GERD hyperlipidemia hypertension Past Surgical History CABG about 3 years ago PCI with stenting Pacemaker placement Right chest port placement Sternal wire removal Reported Medications Reported Meds & Active Scripts Active Eliquis (Apixaban) 2.5 Mg Tab 2.5 Mg PO BID 30 Days Pt may resume eliquis once platelet count is above 60. Pt to have repeat CBC on 03/13/17 at outpt laboratory. Reported Senna-Plus (Sennosides-Docusate Sodium) 8.6-50 Mg Tab 3 Tab PO HS Gabapentin 300 Mg Cap 300 Mg PO TID Furosemide 40 Mg Tab 40 Mg PO DAILY Pantoprazole (Pantoprazole Sodium) 40 Mg Tab 40 Mg PO DAILY Metoprolol Tartrate 50 Mg Tab 50 Mg PO BID K-Tab (Potassium Chloride) 10 Meq Tab 10 Meq PO BID Gemfibrozil 600 Mg Tab 600 Mg PO BIDAC Take 30 minutes prior to breakfast and dinner. Active Ordered Medications Current Medications Medications (Trade) Dose Ordered Sig/Grant Route Start Time Stop Time Status Last Admin (Tylenol) 500 mg Q4H PRN PO 04/24/17 18:00 (Zofran Inj) 4 mg Q6H PRN IV PUSH 04/24/17 18:00 (NS Flush) 2 ml UNSCH PRN IV FLUSH 04/24/17 18:30 (NS Flush) 2 ml BID IV FLUSH 04/24/17 21:00 04/24/17 21:00 (Narcan Inj) 0.4 mg UNSCH PRN IV PUSH 04/24/17 18:30 (Marialuisa-Colace) 1 tab BID PO 04/24/17 21:00 (Milk Of Magnesia Liq) 30 ml Q12H PRN PO 04/24/17 18:30 (Senokot) 17.2 mg Q12H PRN PO 04/24/17 18:30 (Dulcolax Supp) 10 mg DAILY PRN RECTAL 04/24/17 18:30 (Lactulose Liq) 30 ml DAILY PRN PO 04/24/17 18:30 (Neurontin) 300 mg BID PO 04/25/17 09:00 (Lopid) 600 mg BIDAC PO 04/25/17 07:00 (Lopressor) 50 mg BID PO 04/24/17 21:00 04/24/17 21:21 (Protonix) 40 mg DAILY PO 04/25/17 09:00 (KCl) 10 meq BID PO 04/24/17 21:00 04/24/17 21:22 (Lasix Inj) 20 mg BID@ IV PUSH 04/25/17 09:00 Heparin Sodium/ Dextrose 250 ml @ 8 mls/hr TITRATE PRN IV 04/24/17 22:45 04/25/17 00:02 Family History Noncontributory Social History NS,ND Physical Exam Vital Signs Vital Signs Date Time Temp Pulse Resp B/P (MAP) Pulse Ox O2 Delivery O2 Flow Rate FiO2 04/25/17 06:08 98.8 67 18 120/52 (74) 100 2.00 04/24/17 22:43 69 18 108/61 (77) 98 2.00 04/24/17 21:11 84 18 124/80 (95) 94 Nasal Cannula 2.00 04/24/17 18:10 100 21 04/24/17 16:51 81 17 132/73 (92) 100 Room Air 04/24/17 13:57 97.6 72 23 138/96 (110) 100 Room Air 04/24/17 13:42 99 Room Air 04/24/17 13:30 97.5 74 22 109/55 (73) 98 Physical Exam GENERAL: Well-developed well-nourished. Chronically ill appearing. In no acute distress. NECK: No carotid bruits. No JVD. CARDIOVASCULAR: Regular rate and rhythm. Systolic murmur best appreciated at the apex. RESPIRATORY: No accessory muscle use. Clear to auscultation. Breath sounds equal bilaterally. MUSCULOSKELETAL: No clubbing or cyanosis. 1+ edema on the right and trace on the left. NEUROLOGICAL: Awake and alert. Normal speech. SKIN: Previous midline sternotomy has an open area superiorly with some purulent bloody drainage. Laboratory Laboratory Tests Test 04/24/17 14:01 04/24/17 17:15 04/24/17 19:08 04/24/17 21:20 White Blood Count 5.4 Red Blood Count 3.63 Hemoglobin 11.3 Hematocrit 33.8 Mean Corpuscular Volume 93.0 Mean Corpuscular Hemoglobin 31.0 Mean Corpuscular Hemoglobin Concent 33.4 Red Cell Distribution Width 18.8 Platelet Count 93 Mean Platelet Volume 9.8 Neutrophils (%) (Auto) 57.7 Lymphocytes (%) (Auto) 33.6 Monocytes (%) (Auto) 8.0 Eosinophils (%) (Auto) 0.2 Basophils (%) (Auto) 0.5 Neutrophils # (Auto) 3.1 Lymphocytes # (Auto) 1.8 Monocytes # (Auto) 0.4 Eosinophils # (Auto) 0.0 Basophils # (Auto) 0.0 CBC Comment AUTO DIFF Differential Comment AUTO DIFF CONFIRMED Platelet Estimate LOW Platelet Morphology Comment NORMAL Prothrombin Time 12.4 Prothromb Time International Ratio 1.2 Activated Partial Thromboplast Time 30.6 Blood Urea Nitrogen 23 Creatinine 1.37 Random Glucose 128 Total Protein 8.1 Albumin 2.9 Calcium Level 8.4 Alkaline Phosphatase 73 Aspartate Amino Transf (AST/SGOT) 40 Alanine Aminotransferase (ALT/SGPT) 13 Total Bilirubin 0.9 Sodium Level 139 Potassium Level 3.6 Chloride Level 104 Carbon Dioxide Level 22.3 Anion Gap 13 Estimat Glomerular Filtration Rate 37 Total Creatine Kinase 127 165 196 Troponin I 4.49 5.06 7.43 B-Type Natriuretic Peptide 3698 Thyroid Stimulating Hormone 3rd Gen 4.320 Urine Color YELLOW Urine Turbidity HAZY Urine pH 5.5 Urine Specific [place] 1.031 Urine Protein 30 Urine Glucose (UA) NEG Urine Ketones NEG Urine Occult Blood TRACE Urine Nitrite NEG Urine Bilirubin NEG Urine Urobilinogen LESS THAN 2.0 Urine Leukocyte Esterase LARGE Urine RBC 12 Urine WBC 16 Urine Squamous Epithelial Cells 19 Urine Bacteria MOD Urine Hyaline Casts 13 Microscopic Urinalysis Comment CULTURE INDICATED Creatine Kinase MB 10.1 11.3 Creatine Kinase MB % 5.8 Test 04/25/17 04:45 04/25/17 06:14 Blood Urea Nitrogen 26 Creatinine 1.53 Random Glucose 214 Calcium Level 8.9 Sodium Level 138 Potassium Level 4.2 Chloride Level 104 Carbon Dioxide Level 22.3 Anion Gap 12 Estimat Glomerular Filtration Rate 32 B-Type Natriuretic Peptide 1282 Date/Time Source Procedure Growth Status 04/24/17 17:15 Urine Random Urine Urine Culture Pending Received Result Diagram: 04/24/17 1401 04/25/17 0445 Imaging Last Impressions Chest X-Ray 04/24/17 1349 Signed Impressions: Service Date/Time: Monday, April 24, 2017 14:04 - CONCLUSION: 1. Cardiomegaly with mild positive fluid balance. 2. Stable bilateral lower lobe airspace disease slightly more confluent at the left lung base. Findings may reflect atelectasis and potentially post radiation change in the left lower lung zone. Cortez Rodriguez MD CT Angiography 04/24/17 1348 Signed Impressions: Service Date/Time: Monday, April 24, 2017 15:38 - CONCLUSION: 1. No evidence of pulmonary embolism. 2. Bibasilar alveolar consolidations consistent with atelectasis or pneumonia. Clinical correlation is recommended. 3. Scattered patchy opacities within the left upper lobe within the apex and lingula. 4. A 9 mm noncalcified left apical nodule. Followup CT of the chest in 6 months is recommended to confirm stability of this nodule. 5. Cardiomegaly and coronary artery calcifications. 6. Degenerative changes and scoliosis of the thoracic spine. Jaden Soria MD Assessment and Plan Assessment and Plan 82-year-old female with a past medical history of CAD s/p PCI and CABG, A. fib on Eliquis, HTN, HLD, metastatic breast cancer status post recent chemotherapy in remission, GERD who is admitted for possible CHF and elevated troponins Troponin elevation: Rule out non-STEMI, keep nothing by mouth. Continue heparin gtt. for now. Hold off on catheterization pending investigation of possible sternal infection. CHF exacerbation: Previous echocardiograms in 2016 with normal EF and mild to moderate MR. Continue diuresis. Check echo. Atrial fibrillation: s/p pacer (denies AICD). Eliquis on hold for now on heparin. Rate is controlled on metoprolol. Sternal wound: Possible abscess, no clinical signs of surrounding cellulitis, no fever or leukocytosis. Consult ID. Antoine Roberts Apr 25, 2017 07:52
[2017-04-25] MEDS: METOPROLOL TARTRATE 50 MG TAB PO SCH ×2 (08:29→21:38)
[2017-04-25] MEDS: POTASSIUM CHLORIDE 10 MEQ CONTROLLED RELEASE TAB PO SCH ×2 (08:29→21:38)
[2017-04-25] MEDS: GABAPENTIN 300 MG CAP PO SCH ×2 (08:29→21:38)
[2017-04-25] MEDS: PANTOPRAZOLE SOD 40 MG DELAYED RELEASE TAB PO SCH (08:29)
[2017-04-25] MEDS ORDERED: HEPARIN SODIUM - IV 10,000 UNITS/10 ML VIAL IV PUSH PRN ×2 (08:30)
[2017-04-25] MEDS: SODIUM CHLORIDE 0.9% FLUSH 10 ML FLUSH IV FLUSH SCH ×2 (08:31→21:38)
[2017-04-25] MEDS: DOCUSATE SODIUM 50 MG/SENNA 8.6 MG TAB PO SCH ×2 (08:31→21:38)
[2017-04-25] MEDS ORDERED: FUROSEMIDE 20 MG/2 ML VIAL IV PUSH SCH (09:00)
--- NOTE | 2017-04-25 13:17 | HHI.PR ---
Subjective Remarks Patient reports feeling much better today Objective Vitals Vital Signs Date Time Temp Pulse Resp B/P (MAP) Pulse Ox O2 Delivery O2 Flow Rate FiO2 04/25/17 07:40 68 28 133/84 (100) 99 Nasal Cannula 2.00 04/25/17 06:08 98.8 67 18 120/52 (74) 100 2.00 04/24/17 22:43 69 18 108/61 (77) 98 2.00 04/24/17 21:11 84 18 124/80 (95) 94 Nasal Cannula 2.00 04/24/17 18:10 100 21 04/24/17 16:51 81 17 132/73 (92) 100 Room Air 04/24/17 13:57 97.6 72 23 138/96 (110) 100 Room Air 04/24/17 13:42 99 Room Air 04/24/17 13:30 97.5 74 22 109/55 (73) 98 Result Diagram: 04/24/17 1401 04/25/17 0440 Other Results Laboratory Tests Test 04/24/17 14:01 04/24/17 17:15 04/24/17 19:08 04/24/17 21:20 White Blood Count 5.4 TH/MM3 Red Blood Count 3.63 MIL/MM3 Hemoglobin 11.3 GM/DL Hematocrit 33.8 % Mean Corpuscular Volume 93.0 FL Mean Corpuscular Hemoglobin 31.0 PG Mean Corpuscular Hemoglobin Concent 33.4 % Red Cell Distribution Width 18.8 % Platelet Count 93 TH/MM3 Mean Platelet Volume 9.8 FL Neutrophils (%) (Auto) 57.7 % Lymphocytes (%) (Auto) 33.6 % Monocytes (%) (Auto) 8.0 % Eosinophils (%) (Auto) 0.2 % Basophils (%) (Auto) 0.5 % Neutrophils # (Auto) 3.1 TH/MM3 Lymphocytes # (Auto) 1.8 TH/MM3 Monocytes # (Auto) 0.4 TH/MM3 Eosinophils # (Auto) 0.0 TH/MM3 Basophils # (Auto) 0.0 TH/MM3 CBC Comment AUTO DIFF Differential Comment AUTO DIFF CONFIRMED Platelet Estimate LOW Platelet Morphology Comment NORMAL Prothrombin Time 12.4 SEC Prothromb Time International Ratio 1.2 RATIO Activated Partial Thromboplast Time 30.6 SEC Blood Urea Nitrogen 23 MG/DL Creatinine 1.37 MG/DL Random Glucose 128 MG/DL Total Protein 8.1 GM/DL Albumin 2.9 GM/DL Calcium Level 8.4 MG/DL Alkaline Phosphatase 73 U/L Aspartate Amino Transf (AST/SGOT) 40 U/L Alanine Aminotransferase (ALT/SGPT) 13 U/L Total Bilirubin 0.9 MG/DL Sodium Level 139 MEQ/L Potassium Level 3.6 MEQ/L Chloride Level 104 MEQ/L Carbon Dioxide Level 22.3 MEQ/L Anion Gap 13 MEQ/L Estimat Glomerular Filtration Rate 37 ML/MIN Total Creatine Kinase 127 U/L 165 U/L 196 U/L Troponin I 4.49 NG/ML 5.06 NG/ML 7.43 NG/ML B-Type Natriuretic Peptide 3698 PG/ML Thyroid Stimulating Hormone 3rd Gen 4.320 uIU/ML Urine Color YELLOW Urine Turbidity HAZY Urine pH 5.5 Urine Specific Baker 1.031 Urine Protein 30 mg/dL Urine Glucose (UA) NEG mg/dL Urine Ketones NEG mg/dL Urine Occult Blood TRACE Urine Nitrite NEG Urine Bilirubin NEG Urine Urobilinogen LESS THAN 2.0 MG/DL Urine Leukocyte Esterase LARGE Urine RBC 12 /hpf Urine WBC 16 /hpf Urine Squamous Epithelial Cells 19 /hpf Urine Bacteria MOD /hpf Urine Hyaline Casts 13 /lpf Microscopic Urinalysis Comment CULTURE INDICATED Creatine Kinase MB 10.1 NG/ML 11.3 NG/ML Creatine Kinase MB % 5.8 % Test 04/25/17 04:45 04/25/17 07:30 Blood Urea Nitrogen 26 MG/DL Creatinine 1.53 MG/DL Random Glucose 214 MG/DL Calcium Level 8.9 MG/DL Sodium Level 138 MEQ/L Potassium Level 4.2 MEQ/L Chloride Level 104 MEQ/L Carbon Dioxide Level 22.3 MEQ/L Anion Gap 12 MEQ/L Estimat Glomerular Filtration Rate 32 ML/MIN B-Type Natriuretic Peptide 1282 PG/ML Activated Partial Thromboplast Time 37.9 SEC Imaging Last 24 hours Impressions Chest X-Ray 04/24/17 3570 Signed Impressions: Service Date/Time: Monday, April 24, 2017 14:04 - CONCLUSION: 1. Cardiomegaly with mild positive fluid balance. 2. Stable bilateral lower lobe airspace disease slightly more confluent at the left lung base. Findings may reflect atelectasis and potentially post radiation change in the left lower lung zone. Cortez Rodriguez MD CT Angiography 04/24/17 1349 Signed Impressions: Service Date/Time: Monday, April 24, 2017 15:38 - CONCLUSION: 1. No evidence of pulmonary embolism. 2. Bibasilar alveolar consolidations consistent with atelectasis or pneumonia. Clinical correlation is recommended. 3. Scattered patchy opacities within the left upper lobe within the apex and lingula. 4. A 9 mm noncalcified left apical nodule. Followup CT of the chest in 6 months is recommended to confirm stability of this nodule. 5. Cardiomegaly and coronary artery calcifications. 6. Degenerative changes and scoliosis of the thoracic spine. Jaden Soria MD Objective Remarks GENERAL: Well-developed well-nourished. Chronically ill appearing. In no acute distress. SKIN: Previous midline sternotomy has an open area with some purulent bloody drainage. NECK: No carotid bruits. No JVD. CARDIOVASCULAR: Regular rate and rhythm. Systolic murmur RESPIRATORY: crackles bilateral lower lobes MUSCULOSKELETAL: No clubbing or cyanosis. 1+ BLE NEUROLOGICAL: Awake and alert. Normal speech. A/P Problem List: (1) Pulmonary edema ICD Codes: J81.1 - Chronic pulmonary edema Status: Acute Plan: BNP on admission 3698 -> (04/25) 1282 Lasix 40 mg IV given 04/24 Lasix 20 mg IV BID, potassium 10 meq PO BID cardiology consulted and following Echo requested CXR (04/24) Cardiomegaly with mild positive fluid balance. Stable bilateral lower lobe airspace disease slightly more confluent at the left lung base. Findings may reflect atelectasis and potentially post radiation changes in the left lower lung zone. CTA (04/24) No evidence of PE Repeat CXR requested (2) Troponin level elevated ICD Codes: R79.89 - Other specified abnormal findings of blood chemistry Status: Acute Plan: Rule out non-STEMI, Continue heparin gtt, hold Eliquis Cardiology consulted, plan to proceed with cardiac catheterization after investigation of possible sternal infection. 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 Assessment and plan formulated with Kiley Jay PA-C. I agree with the above. significant LE edema b/l crackle in both lung plascencia Pt started in IV lasix. Elevated troponin Cardiology request ID consult d/t sternal wound. Problem Qualifiers (1) Pulmonary edema: Qualified Codes: J81.0 - Acute pulmonary edema Kiley Jay Apr 25, 2017 13:16 Evangelist Grullon DO Apr 26, 2017 13:09
--- NOTE | 2017-04-25 14:01 | EKG ---
Date Performed: 04/24/2017 Time Performed: 18:25:47 PTAGE: 82 years EKG: ELECTRONIC VENTRICULAR PACEMAKER ABNORMAL RHYTHM ECG Since the PREVIOUS TRACING , no significant change noted PREVIOUS TRACING DOCTOR: Nelly Lima Interpretating Date/Time 04/25/2017 13:54:21
--- NOTE | 2017-04-25 14:01 | EKG ---
Date Performed: 04/24/2017 Time Performed: 14:22:48 PTAGE: 82 years EKG: ELECTRONIC VENTRICULAR PACEMAKER ABNORMAL RHYTHM ECG Since the PREVIOUS TRACING , no significant change noted PREVIOUS TRACIN09/25/2015 00.36 DOCTOR: Nelly Lima Interpretating Date/Time 04/25/2017 13:54:29
--- NOTE | 2017-04-25 14:01 | EKG ---
Date Performed: 04/24/2017 Time Performed: 21:17:48 PTAGE: 82 years EKG: ELECTRONIC VENTRICULAR PACEMAKER ABNORMAL RHYTHM ECG Since the PREVIOUS TRACING , no significant change noted PREVIOUS TRACIN04/24/2017 18.25 DOCTOR: Nelly Lima Interpretating Date/Time 04/25/2017 13:54:07
--- NOTE | 2017-04-25 14:38 | RADRPT ---
EXAM DATE/TIME: 04/25/2017 14:16 [facility] COMPARISON: CHEST SINGLE AP, April 24, 2017, 14:04. INDICATIONS : Shortness of breath for three days. MEDICAL HISTORY : Diabetes mellitus type II. Cardiovascular disease. Hypertension. Carcinoma, breast.Omental canc er SURGICAL HISTORY : CABG. Port. Pacemaker. ENCOUNTER: Initial ACUITY: 3 days PAIN SCORE: 0/10 LOCATION: Bilateral chest FINDINGS: The heart is enlarged. There is diffuse interstitial prominence and bilateral effusion suggesting con gestive failure. The patient's transvenous pacer Antrvr-q-Soay appeared satisfactory position. Patient is post median sternotomy. Overall amount of effusion appears to have increased when compared to previous CONCLUSION: 1. Cardiomegaly with bilateral effusions suggesting congestive failure. The overall amount of effusio n appears to have increased compared to a previous dated 04/24/17 Anand Swartz MD on April 25, 2017 at 14:34 Board Certified Radiologist. This report was verified electronically.
[2017-04-25] MEDS: FUROSEMIDE 40 MG/4 ML VIAL IV PUSH SCH (17:46)
--- NOTE | 2017-04-25 20:13 | HHI.PR ---
Addendum to Inpatient Note Addendum Reason: Additional Documentation Additional Information Pt was seen around 1800 Full note to follow 82 yo F sp CABG 2011 (Dr Saavedra) with 6 mos of wire protrusion and drainsge fasiled short course of abx admitted with SOB W/u with Bibasilar alveolar consolidations consistent with atelectasis or pneumonia on CTA Not a candidate for MRI ( PPM) ROS + ortopnea, SOB, edema Exam AF vss + dyspneic Braining opening with purulence x 2 over sternum + wires CTA B BLE edema PALN: Ceretec BC, wound clx Rufina Dalal MD Apr 25, 2017 20:13
--- NOTE | 2017-04-25 20:16 | PD.ID.CON ---
History of Present Illness Service ID Consult Requested By Antoine HERRERA Reason for Consult sternal osteo Primary Care Physician Thony Galan M.D. Diagnoses: History of Present Illness Pt was seen around 1800 82 yo F with multiple medical problems sp CABG 2011 (Dr Saavedra) h/o metastatic ovarian cancer, on chemotherapy presented with 6 mos of wire protrusion and drainage of bloody and purulent d/c She failed short course of abx few mos ago Pt was admitted with SOB W/u with Bibasilar alveolar consolidations consistent with atelectasis or pneumonia on CTA Not a candidate for MRI ( PPM) She has no fever no leukocytosis. She has normal WBC She also c/o ortopnea, SOB, BLE edema Review of Systems Cardiovascular: COMPLAINS OF: Dyspnea on Exertion, Lower Extremity Edema, Orthopnea Except as stated in HPI: all other systems reviewed are Neg Past Family Social History Allergies: Coded Allergies: amoxicillin (Unverified Allergy, Severe, Nausea/Vomiting, 04/24/17) codeine (Unverified Allergy, Severe, GI UPSET, 04/24/17) benazepril (Unverified Allergy, Intermediate, COUGHING, 04/24/17) captopril (Unverified Allergy, Intermediate, COUGHING, 04/24/17) enalaprilat (Unverified Allergy, Intermediate, COUGHING, 04/24/17) fosinopril (Unverified Allergy, Intermediate, COUGHING, 04/24/17) lisinopril (Unverified Allergy, Intermediate, COUGHING, 04/24/17) quinapril (Unverified Allergy, Intermediate, COUGHING, 04/24/17) Past Medical History afib,cad,cabg,metastatic cancer breast omental,GERD,hyperlipid,htn Past Surgical History infusaport,left mastectomy cabg pacemaker,stents Active Ordered Medications Medications where reviewed in EMR Antibiotics Include: none Family History reviewed non contributory to curretn ID issue Social History No Tobacco. No ETOH. No Illicit Drugs. Physical Exam Vital Signs Vital Signs Date Time Temp Pulse Resp B/P (MAP) Pulse Ox O2 Delivery O2 Flow Rate FiO2 04/25/17 18:01 76 04/25/17 17:00 82 04/25/17 16:00 74 04/25/17 15:15 98.0 78 18 120/75 (90) 100 04/25/17 15:00 72 04/25/17 14:27 (78) 100 Nasal Cannula 2.00 04/25/17 13:57 73 18 116/60 (78) 99 Nasal Cannula 2.00 04/25/17 07:40 68 28 133/84 (100) 99 Nasal Cannula 2.00 04/25/17 06:08 98.8 67 18 120/52 (74) 100 2.00 04/24/17 22:43 69 18 108/61 (77) 98 2.00 04/24/17 21:11 84 18 124/80 (95) 94 Nasal Cannula 2.00 Physical Exam CONSTITUTIONAL/GENERAL: This is an obese elderly patient, in mild apparent distress. Sitting in bed TUBES/LINES/DRAINS: PORT in place - site OK SKIN: No jaundice, rashes, or lesions. Alopecia Skin temperature appropriate. Not diaphoretic. BREASTS: well healed radical mastectomy scar L chest HEAD: Atraumatic. Normocephalic. EYES: Pupils equal and round and reactive. Extraocular motions intact. No scleral icterus. No injection or drainage. Fundi not examined. ENT: Hearing grossly normal. Nose without bleeding or purulent drainage. Throat without visible erythema, exudates, masses, or lesions. Edentulous NECK: Trachea midline. Supple, nontender. CARDIOVASCULAR: Draining opening with purulence x 2 over sternum + visible wires Regular rate and rhythm without murmurs, gallops, or rubs. No JVD. Peripheral pulses symmetric.PAcer in place - no skin changes over it RESPIRATORY/CHEST: Symmetric, unlabored respirations. Clear to auscultation. Breath sounds equal bilaterally. No wheezes, rales, or rhonchi. GASTROINTESTINAL: Abdomen soft, non-tender, nondistended. No hepato-splenomegaly , or palpable masses. No guarding. Bowel sounds present. GENITOURINARY: Without palpable bladder distension. MUSCULOSKELETAL: Extremities without clubbing, cyanosis, 1-2 + BLE edema. No joint tenderness or effusion noted. No calf tenderness. No mottling or clubbing. LYMPHATICS: No palpable cervical or supraclavicular adenopathy. NEUROLOGICAL: Awake and alert. Motor and sensory grossly within normal limits. Follows commands. Clear speech . Moves all extremities. PSYCHIATRIC: No obvious anxiety/depression. no apparent hallucinations or other psychotic thought process. Laboratory Laboratory Tests Test 04/24/17 21:20 04/25/17 04:45 04/25/17 07:30 04/25/17 13:28 Total Creatine Kinase 196 Creatine Kinase MB 11.3 Creatine Kinase MB % 5.8 Troponin I 7.43 Blood Urea Nitrogen 26 Creatinine 1.53 Random Glucose 214 Calcium Level 8.9 Sodium Level 138 Potassium Level 4.2 Chloride Level 104 Carbon Dioxide Level 22.3 Anion Gap 12 Estimat Glomerular Filtration Rate 32 B-Type Natriuretic Peptide 1282 Activated Partial Thromboplast Time 37.9 55.8 Date/Time Source Procedure Growth Status 04/24/17 17:15 Urine Random Urine Urine Culture - Final 50-100,000 CFU/ML MIXED BETSY... Complete Result Diagram: 04/24/17 1401 04/25/17 0445 Imaging Last Impressions Chest X-Ray 04/25/17 0000 Signed Impressions: Service Date/Time: April 14:16 - CONCLUSION: 1. Cardiomegaly with bilateral effusions suggesting congestive failure. The overall amount of effusion appears to have increased compared to a previous dated 04/24/[address] Angiography 04/24/17 1349 Signed Impressions: Service Date/Time: Monday, April 24, 2017 15:38 - CONCLUSION: 1. No evidence of pulmonary embolism. 2. Bibasilar alveolar consolidations consistent with atelectasis or pneumonia. Clinical correlation is recommended. 3. Scattered patchy opacities within the left upper lobe within the apex and lingula. 4. A 9 mm noncalcified left apical nodule. Followup CT of the chest in 6 months is recommended to confirm stability of this nodule. 5. Cardiomegaly and coronary artery calcifications. 6. Degenerative changes and scoliosis of the thoracic spine. Jaden Soria MD Assessment and Plan Assessment and Plan A: sp remoate CABG Draining sternal wounds, suspected sternal osteo Pacemaker Mulitple med problems On chemo for metastatic oravian cancer PLAN: Ceretec scan BC, wound clx No abx at this point unless shows signs of systemic infection (fever, toxicity) Rufina Dalal MD Apr 25, 2017 20:16
[2017-04-26] VITALS (24 sets, daily range): BP systolic 18–110; BP diastolic 44–71; PULSE 65–77; RESP 16–25; TEMP 97.2–98.1; O2SAT 96–100
[2017-04-26] MEDS: GEMFIBROZIL 600 MG TAB PO SCH ×2 (06:20→17:35)
[2017-04-26] MEDS: HEPARIN 25,000 UNITS-D5W 250 ML - PREMIX IV PRN (06:42)
--- NOTE | 2017-04-26 08:49 | PD.CARD.PN ---
Subjective Subjective Remarks Patient reports she had a tough night last night due to orthopnea. Breathing better today. Still with chest wall discomfort, denies any of her typical prior angina. (Antoine Roberts) Objective Medications Current Medications Medications (Trade) Dose Ordered Sig/Grant Route Start Time Stop Time Status Last Admin (Tylenol) 500 mg Q4H PRN PO 04/24/17 18:00 (Zofran Inj) 4 mg Q6H PRN IV PUSH 04/24/17 18:00 (NS Flush) 2 ml UNSCH PRN IV FLUSH 04/24/17 18:30 (NS Flush) 2 ml BID IV FLUSH 04/24/17 21:00 04/25/17 21:38 (Narcan Inj) 0.4 mg UNSCH PRN IV PUSH 04/24/17 18:30 (Marialuisa-Colace) 1 tab BID PO 04/24/17 21:00 04/25/17 21:38 (Milk Of Magnesia Liq) 30 ml Q12H PRN PO 04/24/17 18:30 (Senokot) 17.2 mg Q12H PRN PO 04/24/17 18:30 (Dulcolax Supp) 10 mg DAILY PRN RECTAL 04/24/17 18:30 (Lactulose Liq) 30 ml DAILY PRN PO 04/24/17 18:30 (Neurontin) 300 mg BID PO 04/25/17 09:00 04/25/17 21:38 (Lopid) 600 mg BIDAC PO 04/25/17 07:00 04/26/17 06:20 (Lopressor) 50 mg BID PO 04/24/17 21:00 04/25/17 21:38 (Protonix) 40 mg DAILY PO 04/25/17 09:00 04/25/17 08:29 (KCl) 10 meq BID PO 04/24/17 21:00 04/25/17 21:38 Heparin Sodium/ Dextrose 250 ml @ 8 mls/hr TITRATE PRN IV 04/24/17 22:45 04/26/17 06:42 (Heparin Inj) 5,000 units UNSCH PRN IV PUSH 04/25/17 08:30 (Heparin Inj) 2,500 units UNSCH PRN IV PUSH 04/25/17 08:30 04/25/17 08:31 (Lasix Inj) 40 mg BID@,18 IV PUSH 04/25/17 18:00 04/25/17 17:46 Vital Signs / I&O Vital Signs Date Time Temp Pulse Resp B/P (MAP) Pulse Ox O2 Delivery O2 Flow Rate FiO2 04/26/17 08:00 70 04/26/17 07:32 98.1 69 22 105/51 (69) 100 04/26/17 07:00 69 04/26/17 04:00 97.2 72 24 108/64 (79) 96 04/26/17 04:00 68 04/26/17 00:00 97.7 69 22 97/58 (71) 99 04/26/17 00:00 68 04/25/17 22:33 99 Nasal Cannula 2.00 04/25/17 20:00 97.8 79 22 98/57 (71) 99 04/25/17 20:00 80 04/25/17 18:01 76 04/25/17 17:00 82 04/25/17 16:00 74 04/25/17 15:15 98.0 78 18 120/75 (90) 100 04/25/17 15:00 72 04/25/17 14:27 (78) 100 Nasal Cannula 2.00 04/25/17 13:57 73 18 116/60 (78) 99 Nasal Cannula 2.00 I/O 04/25/17 04/25/17 04/25/17 04/26/17 04/26/17 04/26/17 07:00 15:00 23:00 07:00 15:00 23:00 Intake Total 480 ml 610 ml Output Total 0 ml Balance 480 ml 610 ml Intake Oral 480 ml 360 ml IV Total 250 ml Output Urine Total 0 ml # Voids 0 3 # Bowel Movements 0 0 Physical Exam GENERAL: Well-developed well-nourished. Chronically ill appearing. In no acute distress. NECK: No carotid bruits. No JVD. CARDIOVASCULAR: Regular rate and rhythm. Systolic murmur best appreciated at the apex. RESPIRATORY: No accessory muscle use. Clear to auscultation. Diminished breath sounds in the bases. No crackles. MUSCULOSKELETAL: No clubbing or cyanosis. Trace lower extremity edema. NEUROLOGICAL: Awake and alert. Normal speech. SKIN: Previous midline sternotomy has an open area superiorly. Laboratory Laboratory Tests Test 04/25/17 13:28 3/15/18 19:56 04/26/17 06:15 Activated Partial Thromboplast Time 55.8 SEC 49.5 SEC 45.9 SEC Imaging Last Impressions Chest X-Ray 04/25/17 0000 Signed Impressions: Service Date/Time: April 14:16 - CONCLUSION: 1. Cardiomegaly with bilateral effusions suggesting congestive failure. The overall amount of effusion appears to have increased compared to a previous dated 04/24/[address] Angiography 04/24/17 1349 Signed Impressions: Service Date/Time: Monday, April 24, 2017 15:38 - CONCLUSION: 1. No evidence of pulmonary embolism. 2. Bibasilar alveolar consolidations consistent with atelectasis or pneumonia. Clinical correlation is recommended. 3. Scattered patchy opacities within the left upper lobe within the apex and lingula. 4. A 9 mm noncalcified left apical nodule. Followup CT of the chest in 6 months is recommended to confirm stability of this nodule. 5. Cardiomegaly and coronary artery calcifications. 6. Degenerative changes and scoliosis of the thoracic spine. Jaden Soria MD (Antoine Roberts) Assessment and Plan Assessment and Plan 82-year-old female with a past medical history of CAD s/p PCI and CABG, A. fib on Eliquis, HTN, HLD, metastatic breast cancer status post recent chemotherapy in remission, GERD who is admitted for possible CHF and elevated troponins Troponin elevation: Rule out non-STEMI, keep nothing by mouth. Continue heparin gtt. for now. Hold off on catheterization pending investigation of possible sternal infection. CHF exacerbation: Previous echocardiograms in 2016 with normal EF and mild to moderate MR. Continue diuresis and monitor I's and O's. Echocardiogram performed, results pending Atrial fibrillation: s/p pacer (denies AICD). Eliquis on hold for now on heparin. Rate is controlled on metoprolol. Sternal wound: ID consulted, suspicion for osteomyelitis, WBC scan ordered (Antoine Roberts) Assessment and Plan Needs sternum worked up then can decide +/- C continue diuresis. (Omega,Patrick Gamboa MD) Antoine Roberts Apr 26, 2017 08:49 Patrick Duff MD Apr 26, 2017 12:42
[2017-04-26] MEDS: METOPROLOL TARTRATE 50 MG TAB PO SCH ×2 (09:46→21:15)
[2017-04-26] MEDS: POTASSIUM CHLORIDE 10 MEQ CONTROLLED RELEASE TAB PO SCH ×2 (09:46→21:15)
[2017-04-26] MEDS: DOCUSATE SODIUM 50 MG/SENNA 8.6 MG TAB PO SCH ×2 (09:46→21:15)
[2017-04-26] MEDS: FUROSEMIDE 40 MG/4 ML VIAL IV PUSH SCH ×2 (09:46→17:36)
[2017-04-26] MEDS: PANTOPRAZOLE SOD 40 MG DELAYED RELEASE TAB PO SCH (09:46)
[2017-04-26] MEDS: SODIUM CHLORIDE 0.9% FLUSH 10 ML FLUSH IV FLUSH SCH ×2 (09:46→21:17)
[2017-04-26] MEDS: GABAPENTIN 300 MG CAP PO SCH ×2 (09:46→21:15)
--- NOTE | 2017-04-26 09:48 | ECHRPT ---
Indication: Heart failure, unspecified CONCLUSIONS The left ventricular systolic function is severely reduced with an estimated ejection fraction in th e range of 20-25%. Wall thickness is measured at the upper limits of normal. Mildly dilated left ventricle. The basal posterior and basal lateral clayton contract normally; all other clayton are severely hypokinetic. The left atrial size is mildly dilated. Mild mitral valve regurgitation. Moderate mitral annular calcification. Mild aortic valve regurgitation. Diffuse moderate thickening and moderate calcification of the aortic valve. Probably moderate aortic valve stenosis. Aortic valve mean gradient is 15 mmHg though in the setting of severely reduced left ventricular dysfunction. There is moderate tricuspid regurgitation. The estimated pulmonary arterial pressure is 53 mmHg. Pacemaker wire is present within the right ventricular cavity. A left sided pleural effusion is present. BP: 133 / 84 HR: 68 Rhythm: Other MEASUREMENTS (Male / Female) Normal Values Technical Quality:Good 2D ECHO LV Diastolic Diameter PLAX 5.9 cm 4.2 - 5.9 / 3.9 - 5.3 cm LV Systolic Diameter PLAX 5.4 cm IVS Diastolic Thickness 1.1 cm 0.6 - 1.0 / 0.6 - 0.9 cm LVPW Diastolic Thickness 1.1 cm 0.6 - 1.0 / 0.6 - 0.9 cm LV Relative Wall Thickness 0.4 LVOT Diameter 2.2 cm M-MODE Aortic Root Diameter MM 2.1 cm LA Systolic Diameter MM 5.2 cm LA Ao Ratio MM 2.5 AV Cusp Separation MM 1.4 cm DOPPLER AV Peak Velocity 238.8 cm/s AV Peak Gradient 22.8 mmHg AV Mean Gradient 14.7 mmHg AV Velocity Time Integral 55.6 cm AI Peak Velocity 360.5 cm/s AI Peak Gradient 52.0 mmHg AI Pressure Half Time 259.5 ms LVOT Peak Velocity 50.8 cm/s LVOT Peak Gradient 1.0 mmHg AV Area Cont Eq pk 0.8 cm MR Peak Velocity 437.0 cm/s MR Peak Gradient 76.4 mmHg LV E' Lateral Velocity 6.6 cm/s TR Peak Velocity 328.0 cm/s TR Peak Gradient 43.0 mmHg Right Atrial Pressure 10.0 mmHg Pulmonary Artery Systolic Pressu 53.0 mmHg Right Ventricular Systolic Press 53.0 mmHg FINDINGS LEFT VENTRICLE The left ventricular systolic function is severely reduced with an estimated ejection fraction in th e range of 20-25%. Wall thickness is measured at the upper limits of normal. Mildly dilated left ventricle. The basal posterior and basal lateral clayton contract normally; all other clayton are severely hypokinetic. RIGHT VENTRICLE Normal right ventricular size and systolic function. LEFT ATRIUM The left atrial size is mildly dilated. RIGHT ATRIUM The right atrial size is normal. ATRIAL SEPTUM Normal atrial septal thickness without atrial level shunting by limited color doppler interrogation. AORTA The aortic root and proximal ascending aorta are normal in size on limited imaging. MITRAL VALVE Mild mitral valve regurgitation. Moderate mitral annular calcification. AORTIC VALVE Mild aortic valve regurgitation. Diffuse moderate thickening and moderate calcification of the aortic valve. Probably moderate aortic valve stenosis. Aortic valve mean gradient is 15 mmHg though in the setting of severely reduced left ventricular dysfunction. TRICUSPID VALVE There is moderate tricuspid regurgitation. The estimated pulmonary arterial pressure is 53 mmHg. Pacemaker wire is present within the right ventricular cavity. PULMONARY VALVE No pulmonary valve regurgitation or stenosis. VESSELS The inferior vena cava is normal in size. PERICARDIUM A left sided pleural effusion is present. Britton Shepard MD (Electronically Signed) Final Date:26 April 2017 09:48
--- NOTE | 2017-04-26 10:38 | RADRPT ---
EXAM DATE/TIME: 04/26/2017 10:19 [facility] COMPARISON: CHEST EXPIRATION ONLY, April 25, 2017, 14:16. INDICATIONS : Short of breath. MEDICAL HISTORY : Carcinoma, breast. Carcinoma, Stomach SURGICAL HISTORY : CABG, stents, port ENCOUNTER: Subsequent ACUITY: 4 - 6 days PAIN SCORE: 3/10 LOCATION: Bilateral chest FINDINGS: The heart is enlarged. There is small bilateral effusions. There is diffuse interstitial prominence m ost consistent with congestive failure. The patient Usvkir-[id number] and transvenous pacer are in stable position. The osseous structures demonstrate degenerative changes but are otherwise intact CONCLUSION: 1. Cardiomegaly, diffuse interstitial prominence and effusions most consistent with congestive failur nigel Swartz MD on April 26, 2017 at 10:35 Board Certified Radiologist. This report was verified electronically.
--- NOTE | 2017-04-26 11:57 | HHI.PR ---
Subjective Remarks Patient reports feeling, "a little," better today c/o soreness right side of her neck Objective Vitals Vital Signs Date Time Temp Pulse Resp B/P (MAP) Pulse Ox O2 Delivery O2 Flow Rate FiO2 04/26/17 11:41 97.9 70 23 101/59 (73) 100 04/26/17 11:00 76 04/26/17 10:44 100 Nasal Cannula 2.00 04/26/17 10:00 73 04/26/17 09:00 68 04/26/17 08:00 70 04/26/17 07:32 98.1 69 22 105/51 (69) 100 04/26/17 07:00 69 04/26/17 04:00 97.2 72 24 108/64 (79) 96 04/26/17 04:00 68 04/26/17 00:00 97.7 69 22 97/58 (71) 99 04/26/17 00:00 68 04/25/17 22:33 99 Nasal Cannula 2.00 04/25/17 20:00 97.8 79 22 98/57 (71) 99 04/25/17 20:00 80 04/25/17 18:01 76 04/25/17 17:00 82 04/25/17 16:00 74 04/25/17 15:15 98.0 78 18 120/75 (90) 100 04/25/17 15:00 72 04/25/17 14:27 (78) 100 Nasal Cannula 2.00 04/25/17 13:57 73 18 116/60 (78) 99 Nasal Cannula 2.00 Result Diagram: 04/24/17 1401 04/25/17 6052 Other Results Laboratory Tests Test 04/24/17 14:01 04/24/17 17:15 04/24/17 19:08 04/24/17 21:20 White Blood Count 5.4 TH/MM3 Red Blood Count 3.63 MIL/MM3 Hemoglobin 11.3 GM/DL Hematocrit 33.8 % Mean Corpuscular Volume 93.0 FL Mean Corpuscular Hemoglobin 31.0 PG Mean Corpuscular Hemoglobin Concent 33.4 % Red Cell Distribution Width 18.8 % Platelet Count 93 TH/MM3 Mean Platelet Volume 9.8 FL Neutrophils (%) (Auto) 57.7 % Lymphocytes (%) (Auto) 33.6 % Monocytes (%) (Auto) 8.0 % Eosinophils (%) (Auto) 0.2 % Basophils (%) (Auto) 0.5 % Neutrophils # (Auto) 3.1 TH/MM3 Lymphocytes # (Auto) 1.8 TH/MM3 Monocytes # (Auto) 0.4 TH/MM3 Eosinophils # (Auto) 0.0 TH/MM3 Basophils # (Auto) 0.0 TH/MM3 CBC Comment AUTO DIFF Differential Comment AUTO DIFF CONFIRMED Platelet Estimate LOW Platelet Morphology Comment NORMAL Prothrombin Time 12.4 SEC Prothromb Time International Ratio 1.2 RATIO Activated Partial Thromboplast Time 30.6 SEC Blood Urea Nitrogen 23 MG/DL Creatinine 1.37 MG/DL Random Glucose 128 MG/DL Total Protein 8.1 GM/DL Albumin 2.9 GM/DL Calcium Level 8.4 MG/DL Alkaline Phosphatase 73 U/L Aspartate Amino Transf (AST/SGOT) 40 U/L Alanine Aminotransferase (ALT/SGPT) 13 U/L Total Bilirubin 0.9 MG/DL Sodium Level 139 MEQ/L Potassium Level 3.6 MEQ/L Chloride Level 104 MEQ/L Carbon Dioxide Level 22.3 MEQ/L Anion Gap 13 MEQ/L Estimat Glomerular Filtration Rate 37 ML/MIN Total Creatine Kinase 127 U/L 165 U/L 196 U/L Troponin I 4.49 NG/ML 5.06 NG/ML 7.43 NG/ML B-Type Natriuretic Peptide 3698 PG/ML Thyroid Stimulating Hormone 3rd Gen 4.320 uIU/ML Urine Color YELLOW Urine Turbidity HAZY Urine pH 5.5 Urine Specific [place] 1.031 Urine Protein 30 mg/dL Urine Glucose (UA) NEG mg/dL Urine Ketones NEG mg/dL Urine Occult Blood TRACE Urine Nitrite NEG Urine Bilirubin NEG Urine Urobilinogen LESS THAN 2.0 MG/DL Urine Leukocyte Esterase LARGE Urine RBC 12 /hpf Urine WBC 16 /hpf Urine Squamous Epithelial Cells 19 /hpf Urine Bacteria MOD /hpf Urine Hyaline Casts 13 /lpf Microscopic Urinalysis Comment CULTURE INDICATED Creatine Kinase MB 10.1 NG/ML 11.3 NG/ML Creatine Kinase MB % 5.8 % Test 04/25/17 04:45 04/25/17 07:30 04/25/17 13:28 04/25/17 19:56 Blood Urea Nitrogen 26 MG/DL Creatinine 1.53 MG/DL Random Glucose 214 MG/DL Calcium Level 8.9 MG/DL Sodium Level 138 MEQ/L Potassium Level 4.2 MEQ/L Chloride Level 104 MEQ/L Carbon Dioxide Level 22.3 MEQ/L Anion Gap 12 MEQ/L Estimat Glomerular Filtration Rate 32 ML/MIN B-Type Natriuretic Peptide 1282 PG/ML Activated Partial Thromboplast Time 37.9 SEC 55.8 SEC 49.5 SEC Test 04/26/17 06:15 Activated Partial Thromboplast Time 45.9 SEC Imaging Last 24 hours Impressions Chest X-Ray 04/24/17 1349 Signed Impressions: Service Date/Time: Monday, April 24, 2017 14:04 - CONCLUSION: 1. Cardiomegaly with mild positive fluid balance. 2. Stable bilateral lower lobe airspace disease slightly more confluent at the left lung base. Findings may reflect atelectasis and potentially post radiation change in the left lower lung zone. Cortez Rodriguez MD CT Angiography 04/24/17 1349 Signed Impressions: Service Date/Time: Monday, April 24, 2017 15:38 - CONCLUSION: 1. No evidence of pulmonary embolism. 2. Bibasilar alveolar consolidations consistent with atelectasis or pneumonia. Clinical correlation is recommended. 3. Scattered patchy opacities within the left upper lobe within the apex and lingula. 4. A 9 mm noncalcified left apical nodule. Followup CT of the chest in 6 months is recommended to confirm stability of this nodule. 5. Cardiomegaly and coronary artery calcifications. 6. Degenerative changes and scoliosis of the thoracic spine. Jaden Soria MD Objective Remarks GENERAL: Well-developed well-nourished. Chronically ill appearing. In no acute distress. SKIN: Previous midline sternotomy has an open area with some purulent bloody drainage. NECK: No carotid bruits. No JVD. CARDIOVASCULAR: Regular rate and rhythm. Systolic murmur RESPIRATORY: crackles bilateral lower lobes MUSCULOSKELETAL: No clubbing or cyanosis. 1+ BLE NEUROLOGICAL: Awake and alert. Normal speech. A/P Problem List: (1) Pulmonary edema ICD Codes: J81.1 - Chronic pulmonary edema Status: Acute Plan: BNP on admission 3698 -> (04/25) 1282 Continue Lasix 40 mg IV BID, potassium 10 meq PO BID repeat BMP for today pending cardiology consulted and following, appreciate input plan for cardiac cath once ID evaluation complete and patient cleared per ID Echo 04/25: The left ventricular systolic function is severely reduced with an estimated ejection fraction in the range of 20-25%. Wall thickness is measured at the upper limits of normal. Mildly dilated left ventricle. The basal posterior and basal lateral clayton contract normally; all other clayton are severely hypokinetic. The left atrial size is mildly dilated. Mild mitral valve regurgitation. Moderate mitral annular calcification. Mild aortic valve regurgitation. Diffuse moderate thickening and moderate calcification of the aortic valve. Probably moderate aortic valve stenosis. Aortic valve mean gradient is 15 mmHg though in the setting of severely reduced left ventricular dysfunction. There is moderate tricuspid regurgitation. The estimated pulmonary arterial pressure is 53 mmHg. Pacemaker wire is present within the right ventricular cavity. CXR (04/24) Cardiomegaly with mild positive fluid balance. Stable bilateral lower lobe airspace disease slightly more confluent at the left lung base. Findings may reflect atelectasis and potentially post radiation changes in the left lower lung zone. CTA (04/24) No evidence of PE Repeat CXR (04/26) Cardiomegaly, diffuse interstitial prominence and effusions most consistent with congestive failure (2) Troponin level elevated ICD Codes: R79.89 - Other specified abnormal findings of blood chemistry Status: Acute Plan: Rule out non-STEMI, Continue heparin gtt, hold Eliquis Cardiology consulted, plan to proceed with cardiac catheterization after investigation of possible sternal infection. 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, unspecified Plan: s/p chemo last 2 weeks ago (4) Wound of sternal region ICD Codes: S21.109A - Unspecified open wound of unspecified front wall of thorax without penetration into thoracic cavity, initial encounter Plan: Patient has had previous midline sternotomy has an open area with some purulent bloody drainage Wound culture has been requested results pending ID consulted WBC Ceretec scan started await results (5) Neck pain ICD Codes: M54.2 - Cervicalgia Plan: neck pain described as mild soreness, consistent with musculoskeletal pain add lidocaine patch Assessment and Plan Patient examined. Assessment and plan formulated with Kiley Jay PA-C. I agree with the above. Less LE edema today. lungs were essentially clear to auscultation. Continue IV lasix & observe renal function. appreciate input from Cardiology and ID. Await results of certec WBC scan 04/27 Anticipate [facility] on 04/29 Problem Qualifiers (1) Pulmonary edema: Qualified Codes: J81.0 - Acute pulmonary edema Kiley Jay Apr 26, 2017 11:57 Evangelist Grullon DO Apr 26, 2017 13:13
[2017-04-26] MEDS: LIDOCAINE HCL 5% PATCH T-DERMAL SCH (12:00)
[2017-04-26 12:31] LABS: AUTOMATED NEUTROPHIL # 2.9 TH/MM3 (1.8-7.7); BASOPHIL % 0.5 % (0.0-2.0); EOSINOPHIL % 0.4 % (0.0-4.0); HEMOGLOBIN 9.9 GM/DL (11.6-15.3); LYMPH % 28.9 % (9.0-44.0); LYMPHOCYTE # 1.4 TH/MM3 (1.0-4.8); MEAN CELL VOLUME 95.2 FL (80.0-100.0); MEAN CORPUSCULAR HEMOGLOBIN 31.6 PG (27.0-34.0); MEAN CORPUSCULAR HGB CONC 33.1 % (32.0-36.0); MEAN PLATELET VOLUME 9.7 FL (7.0-11.0); MONO % 10.3 % (0.0-8.0); MONOCYTE # 0.5 TH/MM3 (0-0.9); NEUT % 59.9 % (16.0-70.0); PLATELET COUNT 80 TH/MM3 (150-450); RED BLOOD COUNT 3.15 MIL/MM3 (4.00-5.30); RED CELL DISTRIBUTION WIDTH 20.1 % (11.6-17.2); WHITE BLOOD COUNT 4.8 TH/MM3 (4.0-11.0)
[2017-04-26 13:11] LABS: BICARBONATE 24.8 MEQ/L (21.0-32.0); CALCIUM 8.6 MG/DL (8.5-10.1); CREATININE 1.87 MG/DL (0.50-1.00)
--- NOTE | 2017-04-26 17:11 | RADRPT ---
EXAM DATE/TIME: 04/26/2017 14:30 This report includes an Addendum and supersedes previous reports for this exam. [facility] COMPARISON: No previous studies available for comparison. INDICATIONS : Sternal osteomyelitis. Abscess. DOSE: 20.1 mCi Tc99m Ceretec labeled white blood cells IV SPECT IMAGIN hrs IMAGNG: SPECT/CT imaging with fusion was performed. RADIATION DOSE: 6.27 CTDIvol (mGy) MEDICAL HISTORY : Hypertension. Carcinoma, breast. Congestive heart failure. SURGICAL HISTORY : CABG Nephrectomy, left. Hysterectomy. Pacemaker. ENCOUNTER: Initial ACUITY: 2 days PAIN SCALE: 5/10 LOCATION: chest TECHNIQUE: Following the in vitro labeling of autologous white cells and reinjection, whole body scan was perfor med at the specified times. SPECT imaging was performed at the specified time in sagittal, axial and coronal planes. Attenuation correction was performed with the computed tomography and both the atten uation correction and non-attenuation corrected data sets were reviewed. FINDINGS: There is some increased uptake in the posterior consolidative aspects of the lungs in the posterior c ostophrenic angle most characteristic of a pneumonic infiltrate. There is normal uptake spleen and normal background activity in the liver and other solid viscera. Within the sternum is some mildly increased activity inferiorly on the left side. There is prior ster notomy with fusion across the sternotomy scar. CONCLUSION: 1. Increased uptake in the areas of consolidation in the posterior inferior lungs bilaterally most ch aracteristic of mild pneumonia. 2. Mildly increased activity in the sternum predominantly on the lower left side, equivocal for ortiz al osteomyelitis. 3. Otherwise biodistribution of the tracer within normal limits. Honorio Choe MD on April 26, 2017 at 16:55 Board Certified Radiologist. This report was verified electronically. ADDENDUM: After discussion with the primary physician on the case the lung exam is felt to be more reflective o f volume overload and possible congestive heart failure versus less likely pneumonic infection. The p rior history of sternotomy in 2011 makes the mild activity identified within the sternum somewhat con cerning for infection. Ana Bowie MD on April 27, 2017 at 8:55 Board Certified Radiologist. This report was verified electronically.
[2017-04-26] MEDS: REMOVE OLD LIDOCAINE PATCH T-DERMAL SCH (21:00)
[2017-04-27] VITALS (31 sets, daily range): BP systolic 95–109; BP diastolic 55–67; PULSE 58–70; RESP 18–20; TEMP 97.6–98.6; O2SAT 94–99
[2017-04-27 06:24] LABS: BICARBONATE 25.7 MEQ/L (21.0-32.0); CALCIUM 8.6 MG/DL (8.5-10.1); CREATININE 1.89 MG/DL (0.50-1.00)
[2017-04-27] MEDS: GEMFIBROZIL 600 MG TAB PO SCH ×2 (06:38→18:24)
[2017-04-27] MEDS: METOPROLOL TARTRATE 50 MG TAB PO SCH ×3 (09:00→21:07)
[2017-04-27] MEDS: POTASSIUM CHLORIDE 10 MEQ CONTROLLED RELEASE TAB PO SCH (09:52)
[2017-04-27] MEDS: FUROSEMIDE 40 MG/4 ML VIAL IV PUSH SCH (09:52)
[2017-04-27] MEDS: DOCUSATE SODIUM 50 MG/SENNA 8.6 MG TAB PO SCH ×2 (09:52→21:08)
[2017-04-27] MEDS: GABAPENTIN 300 MG CAP PO SCH ×2 (09:53→21:08)
[2017-04-27] MEDS: PANTOPRAZOLE SOD 40 MG DELAYED RELEASE TAB PO SCH (09:53)
[2017-04-27] MEDS: SODIUM CHLORIDE 0.9% FLUSH 10 ML FLUSH IV FLUSH SCH ×2 (09:54→21:07)
[2017-04-27] MEDS: LIDOCAINE HCL 5% PATCH T-DERMAL SCH (09:56)
[2017-04-27] MEDS: HEPARIN 25,000 UNITS-D5W 250 ML - PREMIX IV PRN (10:30)
--- NOTE | 2017-04-27 16:56 | HHI.PR ---
Subjective Remarks Pt appeared generally uncomfortable at my visit. Pt was swollen in all extremities and tachypneic. Objective Vitals Vital Signs Date Time Temp Pulse Resp B/P (MAP) Pulse Ox O2 Delivery O2 Flow Rate FiO2 04/27/17 15:00 98.6 67 18 95/55 (68) 94 04/27/17 14:00 60 04/27/17 13:00 62 04/27/17 12:00 68 04/27/17 11:30 98.3 70 18 100/58 (72) 96 04/27/17 11:00 70 04/27/17 10:00 66 04/27/17 09:50 98.3 69 18 98/62 (74) 97 04/27/17 09:00 60 04/27/17 08:52 99 Nasal Cannula 2.00 04/27/17 08:00 62 04/27/17 07:00 60 04/27/17 06:00 60 04/27/17 05:00 60 04/27/17 04:00 60 04/27/17 03:40 59 20 102/62 (75) 99 04/27/17 03:00 59 04/27/17 02:00 60 04/27/17 01:00 58 04/27/17 00:00 62 04/26/17 23:35 65 16 94/55 (68) 100 04/26/17 23:00 68 04/26/17 22:00 66 04/26/17 21:00 66 04/26/17 20:00 68 04/26/17 19:00 75 04/26/17 19:00 98.0 68 24 18/44 (35) 99 04/26/17 18:00 72 04/26/17 17:00 69 04/27/17 04/27/17 04/28/17 15:00 23:00 07:00 Intake Total 240 ml Output Total 350 ml Balance -110 ml Intake Oral 240 ml Output Urine Total 350 ml # Bowel Movements 1 Result Diagram: 04/26/17 1215 04/27/17 0535 Imaging Last 24 hours Impressions Chest X-Ray 04/24/17 8379 Signed Impressions: Service Date/Time: Monday, April 24, 2017 14:04 - CONCLUSION: 1. Cardiomegaly with mild positive fluid balance. 2. Stable bilateral lower lobe airspace disease slightly more confluent at the left lung base. Findings may reflect atelectasis and potentially post radiation change in the left lower lung zone. Cortez Rodriguez MD CT Angiography 04/24/17 1349 Signed Impressions: Service Date/Time: Monday, April 24, 2017 15:38 - CONCLUSION: 1. No evidence of pulmonary embolism. 2. Bibasilar alveolar consolidations consistent with atelectasis or pneumonia. Clinical correlation is recommended. 3. Scattered patchy opacities within the left upper lobe within the apex and lingula. 4. A 9 mm noncalcified left apical nodule. Followup CT of the chest in 6 months is recommended to confirm stability of this nodule. 5. Cardiomegaly and coronary artery calcifications. 6. Degenerative changes and scoliosis of the thoracic spine. Jaden Soria MD Objective Remarks GENERAL: Well-developed well-nourished. Chronically ill appearing. In no acute distress. SKIN: Previous midline sternotomy has an open area with some purulent bloody drainage. NECK: No carotid bruits. No JVD. CARDIOVASCULAR: Regular rate and rhythm. Systolic murmur RESPIRATORY: crackles bilateral lower lobes MUSCULOSKELETAL: 1+ edema at UEs and 2+ edema at LEs NEUROLOGICAL: Awake and alert. Normal speech. A/P Problem List: (1) Pulmonary edema ICD Codes: J81.1 - Chronic pulmonary edema Status: Acute Plan: BNP on admission 3698 -> (04/25) 1282 Continue Lasix 40 mg IV BID, potassium 10 meq PO BID repeat BMP for today pending cardiology consulted and following, appreciate input plan for cardiac cath once ID evaluation complete and patient cleared per ID Echo 04/25: The left ventricular systolic function is severely reduced with an estimated ejection fraction in the range of 20-25%. Wall thickness is measured at the upper limits of normal. Mildly dilated left ventricle. The basal posterior and basal lateral clayton contract normally; all other clayton are severely hypokinetic. The left atrial size is mildly dilated. Mild mitral valve regurgitation. Moderate mitral annular calcification. Mild aortic valve regurgitation. Diffuse moderate thickening and moderate calcification of the aortic valve. Probably moderate aortic valve stenosis. Aortic valve mean gradient is 15 mmHg though in the setting of severely reduced left ventricular dysfunction. There is moderate tricuspid regurgitation. The estimated pulmonary arterial pressure is 53 mmHg. Pacemaker wire is present within the right ventricular cavity. CXR (04/24) Cardiomegaly with mild positive fluid balance. Stable bilateral lower lobe airspace disease slightly more confluent at the left lung base. Findings may reflect atelectasis and potentially post radiation changes in the left lower lung zone. CTA (04/24) No evidence of PE Repeat CXR (04/26) Cardiomegaly, diffuse interstitial prominence and effusions most consistent with congestive failure 04/27/17 - Pt edematous, tachypneic, and uncomfortable - last CXR (04/26) showed pulm edema - Pt's blood pressures trending hypotensive - Pt refused transfer to ICU for more aggressive care - after d/w pt and simultaneously by phone with and son, code status was changed to DNR - morphine 4mg q3h prn anxiety or oxygen starvation - will observe overnight on telemetry - will meet with pt/family 04/28/17, if no marked improvement will consider transition to hospice (2) Troponin level elevated ICD Codes: R79.89 - Other specified abnormal findings of blood chemistry Status: Acute Plan: Rule out non-STEMI, Continue heparin gtt, hold Eliquis Cardiology consulted, plan to proceed with cardiac catheterization after investigation of possible sternal infection. 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, unspecified Plan: s/p chemo last 2 weeks ago (4) Wound of sternal region ICD Codes: S21.109A - Unspecified open wound of unspecified front wall of thorax without penetration into thoracic cavity, initial encounter Plan: Patient has had previous midline sternotomy has an open area with some purulent bloody drainage Wound culture has been requested results pending ID consulted WBC Ceretec scan started await results (5) Neck pain ICD Codes: M54.2 - Cervicalgia Plan: neck pain described as mild soreness, consistent with musculoskeletal pain add lidocaine patch Problem Qualifiers (1) Pulmonary edema: Qualified Codes: J81.0 - Acute pulmonary edema Evangelist Grullon DO Apr 27, 2017 16:56
[2017-04-27] MEDS ORDERED: PILL SPLITTER OTHER PRN (17:30)
[2017-04-27] MEDS ORDERED: MORPHINE SULFATE 4 MG/ML INJ IV PUSH PRN (17:45)
[2017-04-27] MEDS: REMOVE OLD LIDOCAINE PATCH T-DERMAL SCH (21:00)
--- NOTE | 2017-04-27 22:32 | PD.CARD.PN ---
Subjective Subjective Remarks Some short of breath Objective Medications Current Medications Medications (Trade) Dose Ordered Sig/Grant Route Start Time Stop Time Status Last Admin (Tylenol) 500 mg Q4H PRN PO 04/24/17 18:00 04/26/17 21:26 (Zofran Inj) 4 mg Q6H PRN IV PUSH 04/24/17 18:00 (NS Flush) 2 ml UNSCH PRN IV FLUSH 04/24/17 18:30 (NS Flush) 2 ml BID IV FLUSH 04/24/17 21:00 04/27/17 21:07 (Narcan Inj) 0.4 mg UNSCH PRN IV PUSH 04/24/17 18:30 (Marialuisa-Colace) 1 tab BID PO 04/24/17 21:00 04/27/17 21:08 (Milk Of Magnesia Liq) 30 ml Q12H PRN PO 04/24/17 18:30 (Senokot) 17.2 mg Q12H PRN PO 04/24/17 18:30 (Dulcolax Supp) 10 mg DAILY PRN RECTAL 04/24/17 18:30 (Lactulose Liq) 30 ml DAILY PRN PO 04/24/17 18:30 (Neurontin) 300 mg BID PO 04/25/17 09:00 04/27/17 21:08 (Lopid) 600 mg BIDAC PO 04/25/17 07:00 04/27/17 18:24 (Protonix) 40 mg DAILY PO 04/25/17 09:00 04/27/17 09:53 Heparin Sodium/ Dextrose 250 ml @ 8 mls/hr TITRATE PRN IV 04/24/17 22:45 04/27/17 10:30 (Heparin Inj) 5,000 units UNSCH PRN IV PUSH 04/25/17 08:30 (Heparin Inj) 2,500 units UNSCH PRN IV PUSH 04/25/17 08:30 04/25/17 08:31 (Lidoderm 5% Patch.12 Hr) 1 patch DAILY T-DERMAL 04/26/17 12:00 04/27/17 09:56 Miscellaneous Information 1 HS T-DERMAL 04/26/17 21:00 04/27/17 21:00 (Lopressor) 25 mg BID PO 04/27/17 21:00 04/27/17 21:07 (Pill Splitter) 1 ea UNSCH PRN OTHER 04/27/17 17:30 (Morphine Inj) 4 mg Q2H PRN IV PUSH 04/27/17 17:45 04/27/17 18:25 Vital Signs / I&O Vital Signs Date Time Temp Pulse Resp B/P (MAP) Pulse Ox O2 Delivery O2 Flow Rate FiO2 04/27/17 21:33 98 Nasal Cannula 2.00 04/27/17 19:30 97.6 66 20 109/66 (80) 98 04/27/17 19:00 66 04/27/17 18:48 18 04/27/17 18:00 68 04/27/17 17:00 64 04/27/17 16:00 66 04/27/17 15:00 62 04/27/17 15:00 98.6 67 18 95/55 (68) 94 04/27/17 14:00 60 04/27/17 13:00 62 04/27/17 12:00 68 04/27/17 11:30 98.3 70 18 100/58 (72) 96 04/27/17 11:00 70 04/27/17 10:00 66 04/27/17 09:50 98.3 69 18 98/62 (74) 97 04/27/17 09:00 60 04/27/17 08:52 99 Nasal Cannula 2.00 04/27/17 08:00 62 04/27/17 07:00 60 04/27/17 06:00 60 04/27/17 05:00 60 04/27/17 04:00 60 04/27/17 03:40 59 20 102/62 (75) 99 04/27/17 03:00 59 04/27/17 02:00 60 04/27/17 01:00 58 04/27/17 00:00 62 04/26/17 23:35 65 16 94/55 (68) 100 04/26/17 23:00 68 I/O 04/26/17 04/26/17 04/26/17 04/27/17 04/27/17 04/27/17 07:00 15:00 23:00 07:00 15:00 23:00 Intake Total 610 ml 840 ml 240 ml 720 ml Output Total 700 ml 350 ml 400 ml Balance 610 ml 140 ml -110 ml 320 ml Intake Oral 360 ml 840 ml 240 ml 720 ml IV Total 250 ml Output Urine Total 700 ml 350 ml 400 ml # Voids 3 # Bowel Movements 0 1 1 Physical Exam GENERAL: Well-developed well-nourished. Chronically ill appearing. In no acute distress. NECK: No carotid bruits. No JVD. CARDIOVASCULAR: Regular rate and rhythm. Systolic murmur best appreciated at the apex. RESPIRATORY: No accessory muscle use. Mild rales and wheezing auscultation. Diminished breath sounds in the bases. No crackles. MUSCULOSKELETAL: No clubbing or cyanosis. Trace lower extremity edema. NEUROLOGICAL: Awake and alert. Normal speech. SKIN: Previous midline sternotomy has an open area superiorly. Laboratory Laboratory Tests Test 04/27/17 05:35 Activated Partial Thromboplast Time 45.6 SEC Blood Urea Nitrogen 40 MG/DL Creatinine 1.89 MG/DL Random Glucose 183 MG/DL Calcium Level 8.6 MG/DL Sodium Level 140 MEQ/L Potassium Level 3.9 MEQ/L Chloride Level 102 MEQ/L Carbon Dioxide Level 25.7 MEQ/L Anion Gap 12 MEQ/L Estimat Glomerular Filtration Rate 25 ML/MIN Assessment and Plan Problem List: (1) Ischemic cardiomyopathy ICD Codes: I25.5 - Ischemic cardiomyopathy (2) FH: CABG (coronary artery bypass surgery) ICD Codes: Z84.89 - Family history of other specified conditions (3) NSTEMI (non-ST elevated myocardial infarction) ICD Codes: I21.4 - Non-ST elevation (NSTEMI) myocardial infarction (4) Coronary artery disease ICD Codes: I25.10 - Atherosclerotic heart disease of [place] coronary artery without angina pectoris Status: Chronic (5) Troponin level elevated ICD Codes: R79.89 - Other specified abnormal findings of blood chemistry Status: Acute (6) TIFF (acute kidney injury) ICD Codes: N17.9 - Acute kidney failure, unspecified Status: Acute (7) Hypertension ICD Codes: I10 - Essential (primary) hypertension Status: Chronic (8) Atrial fibrillation, controlled ICD Codes: I48.91 - Unspecified atrial fibrillation Assessment and Plan 82-year-old female with a past medical history of CAD s/p PCI and CABG, A. fib on Eliquis, HTN, HLD, metastatic breast cancer status post recent chemotherapy in remission, GERD who is admitted for possible CHF and elevated troponins 1. NSTEMI, hx of CAD, CABG. Troponin elevation 7.4. Continue heparin gtt. for now. Hold off on catheterization pending investigation of possible sternal infection. Per Dr. Patrick Duff, [facility] on Saturday tentatively if sternal wound no infection. 2. Severe ischemic cardiomyopathy,: Previous echocardiograms in 2016 with normal EF and mild to moderate MR. Continue diuresis and monitor I's and O's. Echocardiogram 04/25/17 showed LVEF 25%, mild MR, AR, moderate TR. already on Metoprolol, no ACEi and no ARB due to low BP. Need low dose of Lasix. Need fluid restriction to 1.5 Liter per day. 3. Atrial fibrillation: s/p pacer (denies AICD). Eliquis on hold for now on heparin. Rate is controlled on metoprolol. 4. Sternal wound: ID consulted, suspicion for osteomyelitis, WBC scan ordered 5. Breast cancer, on Chemotherapy??? I am covering [facility] cardiology on 04/27/17 and 04/28/17. Wing Oralia Soto MD Apr 27, 2017 22:32
[2017-04-28] VITALS (20 sets, daily range): BP systolic 97–115; BP diastolic 44–69; PULSE 60–65; RESP 18–20; TEMP 97.6–98.1; O2SAT 96–100
[2017-04-28] MEDS: GEMFIBROZIL 600 MG TAB PO SCH (06:24)
[2017-04-28 06:55] LABS: BICARBONATE 23.8 MEQ/L (21.0-32.0); CALCIUM 9.2 MG/DL (8.5-10.1); CREATININE 2.24 MG/DL (0.50-1.00)
[2017-04-28 07:04] LABS: AUTOMATED NEUTROPHIL # 4.1 TH/MM3 (1.8-7.7); BASOPHIL % 0.2 % (0.0-2.0); EOSINOPHIL % 0.1 % (0.0-4.0); HEMATOCRIT 30.5 % (35.0-46.0); LYMPH % 27.3 % (9.0-44.0); LYMPHOCYTE # 1.8 TH/MM3 (1.0-4.8); MEAN CELL VOLUME 96.5 FL (80.0-100.0); MEAN CORPUSCULAR HEMOGLOBIN 31.5 PG (27.0-34.0); MEAN CORPUSCULAR HGB CONC 32.7 % (32.0-36.0); MEAN PLATELET VOLUME 10.9 FL (7.0-11.0); MONOCYTE # 0.6 TH/MM3 (0-0.9); NEUT % 63.4 % (16.0-70.0); PLATELET COUNT 77 TH/MM3 (150-450); RED BLOOD COUNT 3.16 MIL/MM3 (4.00-5.30); RED CELL DISTRIBUTION WIDTH 20.2 % (11.6-17.2); WHITE BLOOD COUNT 6.5 TH/MM3 (4.0-11.0)
[2017-04-28] MEDS: DOCUSATE SODIUM 50 MG/SENNA 8.6 MG TAB PO SCH (08:06)
[2017-04-28] MEDS: PANTOPRAZOLE SOD 40 MG DELAYED RELEASE TAB PO SCH (08:06)
[2017-04-28] MEDS: LIDOCAINE HCL 5% PATCH T-DERMAL SCH (08:06)
[2017-04-28] MEDS: METOPROLOL TARTRATE 50 MG TAB PO SCH (08:06)
[2017-04-28] MEDS: GABAPENTIN 300 MG CAP PO SCH (08:06)
[2017-04-28] MEDS: SODIUM CHLORIDE 0.9% FLUSH 10 ML FLUSH IV FLUSH SCH (08:06)
--- NOTE | 2017-04-28 08:22 | RADRPT ---
EXAM DATE/TIME: 04/28/2017 07:36 [facility] COMPARISON: CHEST SINGLE AP, April 24, 2017, 14:04. INDICATIONS : Shortness of breath. MEDICAL HISTORY : Carcinoma, breast. Carcinoma, Stomach SURGICAL HISTORY : CABG. Pacemaker. Cardiac stents. Infusaport. ENCOUNTER: Subsequent ACUITY: 4 - 6 days PAIN SCORE: 2/10 LOCATION: Bilateral chest FINDINGS: AP portable semiupright view of the chest. Central line with the tip overlying the distal SVC. A dual -lead cardiac pacer. Intact and discontinuous median sternotomy wires. Heart size is mildly enlarged. The lungs are hypoinflated with no blunting of the left costophrenic angle consistent with atelectas is versus fluid. The lungs are otherwise clear. Osseous structures are unremarkable. CONCLUSION: New small left-sided pleural fluid. Stable central line. Stable cardiomegaly. Ana Bowie MD on April 28, 2017 at 8:18 Board Certified Radiologist. This report was verified electronically.
--- NOTE | 2017-04-28 11:19 | HHI.PR ---
Subjective Remarks Pt appears more comfortable today. Pt does NOT want further aggressive care. Pt/family request hospice consult. Objective Vitals Vital Signs Date Time Temp Pulse Resp B/P (MAP) Pulse Ox O2 Delivery O2 Flow Rate FiO2 04/28/17 08:15 97.6 61 18 99/50 (66) 96 04/28/17 07:01 60 04/28/17 06:00 60 04/28/17 05:00 62 04/28/17 04:00 60 04/28/17 03:41 60 20 115/69 (84) 99 04/28/17 03:00 60 04/28/17 02:00 60 04/28/17 01:00 60 04/28/17 00:00 60 04/27/17 23:15 61 18 106/67 (80) 98 04/27/17 23:00 61 04/27/17 22:00 60 04/27/17 21:33 98 Nasal Cannula 2.00 04/27/17 21:00 60 04/27/17 20:00 64 04/27/17 19:30 97.6 66 20 109/66 (80) 98 04/27/17 19:00 66 04/27/17 18:48 18 04/27/17 18:00 68 04/27/17 17:00 64 04/27/17 16:00 66 04/27/17 15:00 62 04/27/17 15:00 98.6 67 18 95/55 (68) 94 04/27/17 14:00 60 04/27/17 13:00 62 04/27/17 12:00 68 04/27/17 11:30 98.3 70 18 100/58 (72) 96 Result Diagram: 04/28/17 0540 04/28/17 0540 Imaging Last Impressions Chest X-Ray 04/26/17 0600 Signed Impressions: Service Date/Time: Wednesday, April 26, 2017 10:19 - CONCLUSION: 1. Cardiomegaly , diffuse interstitial prominence and effusions most consistent with congestive failure. Anand Swartz MD Tumor Localization 04/26/17 0000 Signed Impressions: Service Date/Time: Wednesday, April 26, 2017 14:30 - CONCLUSION: 1. Increased uptake in the areas of consolidation in the posterior inferior lungs bilaterally most characteristic of mild pneumonia. 2. Mildly increased activity in the sternum predominantly on the lower left side, equivocal for sternal osteomyelitis. 3. Otherwise biodistribution of the tracer within normal limits. Honorio Choe MD ADDENDUM: After discussion with the primary physician on the case the lung exam is felt to be more reflective of volume overload and possible congestive heart failure versus less likely pneumonic infection. The prior history of sternotomy in 2011 makes the mild activity identified within the sternum somewhat concerning for infection. Ana Bowie MD CT Angiography 04/24/17 1349 Signed Impressions: Service Date/Time: Saturday, April 24, 2017 15:38 - CONCLUSION: 1. No evidence of pulmonary embolism. 2. Bibasilar alveolar consolidations consistent with atelectasis or pneumonia. Clinical correlation is recommended. 3. Scattered patchy opacities within the left upper lobe within the apex and lingula. 4. A 9 mm noncalcified left apical nodule. Followup CT of the chest in 6 months is recommended to confirm stability of this nodule. 5. Cardiomegaly and coronary artery calcifications. 6. Degenerative changes and scoliosis of the thoracic spine. Jaden Soria MD Objective Remarks GENERAL: Well-developed well-nourished. Chronically ill appearing. In no acute distress. SKIN: Previous midline sternotomy has an open area with some purulent bloody drainage. NECK: No carotid bruits. No JVD. CARDIOVASCULAR: Regular rate and rhythm. Systolic murmur RESPIRATORY: crackles bilateral lower lobes MUSCULOSKELETAL: 1+ edema at UEs and 2+ edema at LEs NEUROLOGICAL: Awake and alert. Normal speech. A/P Problem List: (1) Pulmonary edema ICD Codes: J81.1 - Chronic pulmonary edema Status: Acute Plan: BNP on admission 3698 -> (04/25) 1282 Continue Lasix 40 mg IV BID, potassium 10 meq PO BID repeat BMP for today pending cardiology consulted and following, appreciate input plan for cardiac cath once ID evaluation complete and patient cleared per ID Echo 04/25: The left ventricular systolic function is severely reduced with an estimated ejection fraction in the range of 20-25%. Wall thickness is measured at the upper limits of normal. Mildly dilated left ventricle. The basal posterior and basal lateral clayton contract normally; all other clayton are severely hypokinetic. The left atrial size is mildly dilated. Mild mitral valve regurgitation. Moderate mitral annular calcification. Mild aortic valve regurgitation. Diffuse moderate thickening and moderate calcification of the aortic valve. Probably moderate aortic valve stenosis. Aortic valve mean gradient is 15 mmHg though in the setting of severely reduced left ventricular dysfunction. There is moderate tricuspid regurgitation. The estimated pulmonary arterial pressure is 53 mmHg. Pacemaker wire is present within the right ventricular cavity. CXR (04/24) Cardiomegaly with mild positive fluid balance. Stable bilateral lower lobe airspace disease slightly more confluent at the left lung base. Findings may reflect atelectasis and potentially post radiation changes in the left lower lung zone. CTA (04/24) No evidence of PE Repeat CXR (04/26) Cardiomegaly, diffuse interstitial prominence and effusions most consistent with congestive failure 04/29 - small left pleural effusion. Cardiomegaly - Pt remains edematous, but less tachypneic today. Pt appears more comfortable - Continued Hypotension - Pt's renal function continues to worsen - Again, pt refused transfer to ICU for more aggressive care - DNR - I met with pt//son at the bedside - Pt/family request hospice consult - IV morphine 4mg q3h prn anxiety or oxygen starvation (2) Troponin level elevated ICD Codes: R79.89 - Other specified abnormal findings of blood chemistry Status: Acute Plan: Rule out non-STEMI, Continue heparin gtt, hold Eliquis Cardiology consulted, plan to proceed with cardiac catheterization after investigation of possible sternal infection. 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, unspecified Plan: s/p chemo last 2 weeks ago (4) Wound of sternal region ICD Codes: S21.109A - Unspecified open wound of unspecified front wall of thorax without penetration into thoracic cavity, initial encounter Plan: Patient has had previous midline sternotomy has an open area with some purulent bloody drainage Wound culture has been requested results pending ID consulted WBC Ceretec scan started await results (5) Neck pain ICD Codes: M54.2 - Cervicalgia Plan: neck pain described as mild soreness, consistent with musculoskeletal pain add lidocaine patch Problem Qualifiers (1) Pulmonary edema: Qualified Codes: J81.0 - Acute pulmonary edema Evangelist Grullon DO Apr 28, 2017 11:19
--- NOTE | 2017-04-28 15:52 | HHI.DS ---
Discharge Summary Admission Date Apr 24, 2017 at 17:58 Discharge Date: Apr 28, 2017 Admitting Diagnosis Pulmonary edema. Elevated troponin. Renal insufficiency. (1) Pulmonary edema Diagnosis: Principal ICD Codes: J81.1 - Chronic pulmonary edema Status: Acute (2) Troponin level elevated Diagnosis: Principal ICD Codes: R79.89 - Other specified abnormal findings of blood chemistry Status: Acute (3) Peritoneal carcinoma Diagnosis: Principal ICD Codes: C48.2 - Malignant neoplasm of peritoneum, unspecified (4) Wound of sternal region Diagnosis: Secondary ICD Codes: S21.109A - Unspecified open wound of unspecified front wall of thorax without penetration into thoracic cavity, initial encounter (5) Neck pain Diagnosis: Secondary ICD Codes: M54.2 - Cervicalgia Consultants Dr. Duff, Cardiology Dr. Dalal, ID Procedures none Brief History 82-year-old female complains of shortness of breath. Patient states the symptoms started 3 days ago. Patient states that his shortness breath is worse when lying down. Patient denies any coughing congestion fever chills. Patient states that she may have had low-grade fever at home. Patient complains of generalized malaise and weakness. 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 Patient has history of left breast cancer status post modified radical mastectomy 1978. Patient has history of atrial fibrillation, CAD status post CABG and pacer placement. Patient has history of diabetes, GERD , hyperlipidemia and hypertension. Patient states that she has occasional chest pain with or shortness of breath. Patient described the chest pain is transient substernal pressure without radiation. Patient denies palpitation nausea diaphoresis. In er had chest xray and CTA suggestive of CHF and increased BNP and troponin level ekg no acute changes . Cardiology notified hold eliquis recheck labs and may need cath. CBC/BMP: 04/28/17 0540 04/28/17 0540 Significant Findings Laboratory Tests Test 04/25/17 19:56 04/26/17 06:15 04/26/17 12:15 04/27/17 05:35 Activated Partial Thromboplast Time 49.5 SEC (24.3-30.1) 45.9 SEC (24.3-30.1) 45.6 SEC (24.3-30.1) Red Blood Count 3.15 MIL/MM3 (4.00-5.30) Hemoglobin 9.9 GM/DL (11.6-15.3) Hematocrit 30.0 % (35.0-46.0) Red Cell Distribution Width 20.1 % (11.6-17.2) Platelet Count 80 TH/MM3 (150-450) Monocytes (%) (Auto) 10.3 % (0.0-8.0) Blood Urea Nitrogen 37 MG/DL (7-18) 40 MG/DL (7-18) Creatinine 1.87 MG/DL (0.50-1.00) 1.89 MG/DL (0.50-1.00) Random Glucose 306 MG/DL (74-106) 183 MG/DL (74-106) Estimat Glomerular Filtration Rate 26 ML/MIN (>89) 25 ML/MIN (>89) Test 04/28/17 05:40 Red Blood Count 3.16 MIL/MM3 (4.00-5.30) Hemoglobin 10.0 GM/DL (11.6-15.3) Hematocrit 30.5 % (35.0-46.0) Red Cell Distribution Width 20.2 % (11.6-17.2) Platelet Count 77 TH/MM3 (150-450) Monocytes (%) (Auto) 9.0 % (0.0-8.0) Platelet Estimate LOW (NORMAL) Platelet Morphology Comment ENLARGED (NORMAL) Activated Partial Thromboplast Time 53.2 SEC (24.3-30.1) Blood Urea Nitrogen 47 MG/DL (7-18) Creatinine 2.24 MG/DL (0.50-1.00) Random Glucose 208 MG/DL (74-106) Estimat Glomerular Filtration Rate 21 ML/MIN (>89) Imaging Last Impressions Chest X-Ray 04/28/17 0800 Signed Impressions: Service Date/Time: Friday, April 28, 2017 07:36 - CONCLUSION: New small left-sided pleural fluid. Stable central line. Stable cardiomegaly. Ana Bowie MD Tumor Localization 04/26/17 0000 Signed Impressions: Service Date/Time: Wednesday, April 26, 2017 14:30 - CONCLUSION: 1. Increased uptake in the areas of consolidation in the posterior inferior lungs bilaterally most characteristic of mild pneumonia. 2. Mildly increased activity in the sternum predominantly on the lower left side, equivocal for sternal osteomyelitis. 3. Otherwise biodistribution of the tracer within normal limits. Honorio Choe MD ADDENDUM: After discussion with the primary physician on the case the lung exam is felt to be more reflective of volume overload and possible congestive heart failure versus less likely pneumonic infection. The prior history of sternotomy in 2011 makes the mild activity identified within the sternum somewhat concerning for infection. Ana Bowie MD CT Angiography 04/24/17 1349 Signed Impressions: Service Date/Time: Monday, April 24, 2017 15:38 - CONCLUSION: 1. No evidence of pulmonary embolism. 2. Bibasilar alveolar consolidations consistent with atelectasis or pneumonia. Clinical correlation is recommended. 3. Scattered patchy opacities within the left upper lobe within the apex and lingula. 4. A 9 mm noncalcified left apical nodule. Followup CT of the chest in 6 months is recommended to confirm stability of this nodule. 5. Cardiomegaly and coronary artery calcifications. 6. Degenerative changes and scoliosis of the thoracic spine. Jaden Soria MD PE at Discharge GENERAL: Well-developed well-nourished. Chronically ill appearing. In no acute distress. SKIN: Previous midline sternotomy has an open area with some purulent bloody drainage. NECK: No carotid bruits. No JVD. CARDIOVASCULAR: Regular rate and rhythm. Systolic murmur RESPIRATORY: crackles bilateral lower lobes MUSCULOSKELETAL: 1+ edema at UEs and 2+ edema at LEs NEUROLOGICAL: Awake and alert. Normal speech. Hospital Course Pulmonary edema BNP on admission 3698 -> (04/25) 1282 Continue Lasix 40 mg IV BID, potassium 10 meq PO BID repeat BMP for today pending cardiology consulted and following, appreciate input plan for cardiac cath once ID evaluation complete and patient cleared per ID Echo 04/25: The left ventricular systolic function is severely reduced with an estimated ejection fraction in the range of 20-25%. Wall thickness is measured at the upper limits of normal. Mildly dilated left ventricle. The basal posterior and basal lateral clayton contract normally; all other clayton are severely hypokinetic. The left atrial size is mildly dilated. Mild mitral valve regurgitation. Moderate mitral annular calcification. Mild aortic valve regurgitation. Diffuse moderate thickening and moderate calcification of the aortic valve. Probably moderate aortic valve stenosis. Aortic valve mean gradient is 15 mmHg though in the setting of severely reduced left ventricular dysfunction. There is moderate tricuspid regurgitation. The estimated pulmonary arterial pressure is 53 mmHg. Pacemaker wire is present within the right ventricular cavity. CXR (04/24) Cardiomegaly with mild positive fluid balance. Stable bilateral lower lobe airspace disease slightly more confluent at the left lung base. Findings may reflect atelectasis and potentially post radiation changes in the left lower lung zone. CTA (04/24) No evidence of PE Repeat CXR (04/26) Cardiomegaly, diffuse interstitial prominence and effusions most consistent with congestive failure 04/29 - small left pleural effusion. Cardiomegaly - Pt remains edematous, but less tachypneic today. Pt appears more comfortable - Continued Hypotension - Pt's renal function continues to worsen - Again, pt refused transfer to ICU for more aggressive care - DNR - I met with pt//son at the bedside - Pt/family request hospice consult - IV morphine 4mg q3h prn anxiety or oxygen starvation Troponin level elevated Rule out non-STEMI, Continue heparin gtt, hold Eliquis Cardiology consulted, plan to proceed with cardiac catheterization after investigation of possible sternal infection. - tagged WBC scan showed findings c/w sternal infection, but pt leaning toward hospice Peritoneal carcinoma s/p chemo last 2 weeks ago Wound of sternal region Patient has had previous midline sternotomy has an open area with some purulent bloody drainage Wound culture has been requested results pending ID consulted WBC Ceretec scan started await results Neck pain neck pain described as mild soreness, consistent with musculoskeletal pain add lidocaine patch Pt Condition on Discharge: Deteriorating Discharge Disposition: Hospice/Med Facility Discharge Instructions DIET: Follow Instructions for: As Tolerated, No Restrictions Activities you can perform: Regular-No Restrictions Follow up Referrals: PCP Follow-up - [address] Galan Additional Information further medications per hospice team Patient examined. Assessment and plan formulated with Kiley Jay PA-C. I agree with the above. Kiley Jay Apr 28, 2017 15:52 Evangelist Grullon DO May 02, 2017 22:35
--- NOTE | 2017-04-28 15:55 | HHI.DCPOC ---
Discharge Care Plan Diagnosis: (1) Ovarian ca (2) Pulmonary edema (3) NSTEMI (non-ST elevated myocardial infarction) (4) Diabetes mellitus (5) COPD (chronic obstructive pulmonary disease) (6) Volume overload (7) Pleural effusion (8) TIFF (acute kidney injury) Goals to Promote Your Health * To prevent worsening of your condition and complications * To maintain your health at the optimal level Directions to Meet Your Goals Take your medications as prescribed Follow your dietary instruction Follow activity as directed Keep your appointments as scheduled Take your immunizations and boosters as scheduled If your symptoms worsen call your PCP, if no PCP go to Urgent Care Center or Emergency Room Smoking is Dangerous to Your Health. Avoid second hand smoke Call the 24-hour hour crisis hotline for domestic abuse at Kiley Jay Apr 28, 2017 15:55 Evangelist Grullon DO May 02, 2017 22:35
== END 2017-04-28 15:26 | disposition hospice, inpatient (51) | DRG 281 ==
LOC: NEPE 12:56 → NEDA 17:58 → NEDH 21:24 → HCIS 04-25 14:43
PROVIDERS: ADMIT Hospitalist; ATTEND Hospitalist
DX: I21.4 Non-ST elevation (NSTEMI) myocardial infarction (principal); N17.9 Acute kidney failure, unspecified; C78.6 Secondary malignant neoplasm of retroperitoneum and peritoneum; I95.9 Hypotension, unspecified; I11.0 Hypertensive heart disease with heart failure; M86.8X8 Other osteomyelitis, other site; I50.9 Heart failure, unspecified; T81.4XXA Infection following a procedure, initial encounter; J98.11 Atelectasis; I48.91 Unspecified atrial fibrillation; Z95.1 Presence of aortocoronary bypass graft; E11.9 Type 2 diabetes mellitus without complications; Z79.01 Long term (current) use of anticoagulants; I08.3 Combined rheumatic disorders of mitral, aortic and tricuspid valves; I25.5 Ischemic cardiomyopathy; I25.10 Atherosclerotic heart disease of native coronary artery without angina pectoris; K21.9 Gastro-esophageal reflux disease without esophagitis; E78.5 Hyperlipidemia, unspecified; Z51.5 Encounter for palliative care; Z66 Do not resuscitate; Z82.49 Family history of ischemic heart disease and other diseases of the circulatory system; Z85.3 Personal history of malignant neoplasm of breast; Z85.43 Personal history of malignant neoplasm of ovary; Z88.1 Allergy status to other antibiotic agents; Z90.12 Acquired absence of left breast and nipple; Z92.21 Personal history of antineoplastic chemotherapy; Z95.0 Presence of cardiac pacemaker; Z95.5 Presence of coronary angioplasty implant and graft
CPT/HCPCS: 71045; 71046; 71275; 78807; 78999; 80048; 80053; 81001; 82550; 82552; 83880; 84443; 84484; 85025; 85610; 85730; 87015; 87040; 87070; 87086; 87102; 87116; 87205; 87206; 93005; 93306; 96372; 96374; A9569; J1644; J1940; J2270; J2360; J2405; Q9967